=== PATIENT | male | born 1940 | race Caucasian/White ===

== ENCOUNTER → 2016-09-17 | Outpatient (CLI) | payer OTHER ==
[~2016-09-17] MED LIST: DILT-115 PO; EZET10TA38 PO; GLC500 PO; HYDR-713 PO; NAPR-1169 PO; [UNRECOGNIZED DRUG - CODE] PO
[2016-09-17 15:16] LABS: ALT/SGPT 18 U/L (12-78); AST/SGOT 11 U/L (15-37); BLOOD UREA NITROGEN 15 mg/dl (7-18); BUN/CREATININE RATIO 13.8 (10-20); CALCIUM 9.2 mg/dl (8.5-10.1); CARBON DIOXIDE 30 mmol/L (21-32); CHLORIDE 103 mmol/L (98-107); GLUCOSE 179 mg/dl (70-99); SODIUM 139 mmol/L (136-145)
[2016-09-17 15:19] LABS: CHOLESTEROL 164 mg/dl (0-200); CHOLESTEROL/HDL RATIO 2.5; HDL CHOLESTEROL 65 mg/dl; LDL CHOLESTEROL CALCULATED 70 mg/dl; TRIGLYCERIDES 146 mg/dl (0-150); VERY LOW DENSITY LIPOPROT CALC 29 mg/dl
[2016-09-17 16:19] LABS: RATIO 3.1 mcg/mg (0-30.0)
[2016-09-17 16:26] LABS: ESTIMATED AVERAGE GLUCOSE 160 mg/dl; HA1C FLAG Normal (Normal)
== END | disposition home or self-care (01) ==
LOC: C.LAB1850 13:59
PROVIDERS: ATTEND Internal Medicine
DX: E11.9 Type 2 diabetes mellitus without complications (principal); M47.9 Spondylosis, unspecified

== ENCOUNTER → 2017-06-30 | Outpatient (CLI) | payer OTHER ==
[2017-06-30 17:02] LABS: ALT/SGPT 21 U/L (12-78); AST/SGOT 10 U/L (15-37); BLOOD UREA NITROGEN 17 mg/dl (7-18); CALCIUM 9.1 mg/dl (8.5-10.1); CARBON DIOXIDE 28 mmol/L (21-32); CREATININE 1.23 mg/dl (0.60-1.40); GLUCOSE 204 mg/dl (70-99); POTASSIUM 4.2 mmol/L (3.5-5.1); SODIUM 135 mmol/L (136-145)
[2017-06-30 17:05] LABS: CHOLESTEROL 161 mg/dl (0-200); LDL CHOLESTEROL CALCULATED 70 mg/dl
[2017-07-01 06:12] LABS: HEMOGLOBIN A1C 7.8 % (4.5-5.6)
== END | disposition home or self-care (01) ==
LOC: C.LAB1850 15:01
PROVIDERS: ATTEND Internal Medicine
DX: E78.5 Hyperlipidemia, unspecified (principal); I10 Essential (primary) hypertension; E11.9 Type 2 diabetes mellitus without complications

== ENCOUNTER 2018-06-18 18:14 | Inpatient (IN) ==
[2018-06-18 19:05] LABS: Basophils # (auto) 0.02 K/uL (0-0.2); Basophils % (auto) 0.2 %; Eosinophils # (auto) 0.19 K/uL (0-0.5); Eosinophils % (auto) 1.7 %; Hematocrit (blood only) 42.1 % (42-52); Hemoglobin 14.3 g/dL (14.0-18.0); Immature Granulocytes # (auto) 0.03 K/uL (0.00-0.02); Immature Granulocytes % (auto) 0.3 %; Lymphocytes # (auto) 2.96 K/uL (1.2-3.4); Lymphocytes % (auto) 26.5 %; Mean Corpuscular Volume 99.5 fL (80-100); Mean Platelet Volume 11.4 fL (7.4-10.4); Monocytes # (auto) 1.03 K/uL (0.11-0.59); Monocytes % (auto) 9.2 %; Neutrophils # (auto) 6.96 K/uL (1.4-6.5); Neutrophils % (auto) 62.1 %; Platelet Count 297 K/uL (130-400); RDW Coefficient of Variation 14.7 % (11.5-14.5); Red Blood Count 4.23 M/uL (4.7-6.1); White Blood Count 11.19 K/uL (4.8-10.8)
[2018-06-18 19:17] LABS: Albumin Level 3.8 gm/dl (3.4-5.0); BUN Creatinine Ratio 17.9 (10-20); Calcium 9.5 mg/dl (8.5-10.1); Creatinine Clr Calc Pharmacy 58.4 ml/min; Est GFR (African American) 59.9; Est GFR (Non-African American) 51.7; Magnesium 1.9 mg/dl (1.8-2.4); Potassium 3.7 mmol/L (3.5-5.1)
[2018-06-18 19:20] LABS: iSTAT Creatinine 1.1 mg/dl (0.6-1.3); iSTAT Hemoglobin 15.3 g/dl (14.0-18.0); iSTAT Ionized Calcium 1.13 mmol/l (1.12-1.32); iSTAT Potassium 3.7 mEq/L (3.3-5.0)
[2018-06-18 19:22] LABS: Albumin Globulin Ratio 0.9 (0.9-2); Bilirubin,Total 0.5 mg/dl (0.2-1); Globulin 4.1 gm/dl (2.5-4.0); Total Protein 7.9 gm/dl (6.4-8.2); Troponin I 0.025 ng/ml (0-0.045)
--- NOTE | 2018-06-18 19:28 | XRay Report ---
SINGLE VIEW CHEST CLINICAL HISTORY: Atypical chest pain. FINDINGS: An AP, portable, upright chest radiograph is compared to study dated 10/31/2008. The examina tion is degraded by portable technique and patient rotation. The heart is enlarged and there is athe rosclerotic calcification of the thoracic aorta. There is pulmonary vascular congestion and interstit ial edema. There are small pleural effusions with bibasilar consolidation. No pneumothorax is seen. T he skeletal structures are osteopenic. The bony thorax is grossly intact. Degenerative change is note d throughout the thoracic spine and in the shoulders. IMPRESSION: 1. Cardiomegaly with evidence of congestive failure and interstitial edema. 2. Small pleural effusions with bibasilar consolidation. Electronically signed by: Keith Allen M.D. 06/18/2018 7:25 PM
[2018-06-18 19:44] LABS: Base Excess VBG 1.5 mEq/L; HCO3 VBG 27 mmol/L; PCO2 VBG 47 mmHg (38-50); PO2 VBG 32 mmHg; pH VBG 7.38 (7.36-7.41)
[2018-06-18] MEDS ORDERED: IOVERSOL 100ml IV PRN (19:48)
--- NOTE | 2018-06-18 19:53 | CT Scan Report ---
CT ANGIOGRAM OF THE CHEST CLINICAL HISTORY: Atypical chest pain. COMPARISON STUDY: Chest x-ray dated 06/18/2018. TECHNIQUE: Following the IV administration of 92 cc of Optiray 320, CT angiogram of the chest was per formed from the upper abdomen to the thoracic inlet utilizing the pulmonary embolus protocol. Images are reviewed in the axial, sagittal, and coronal planes. 3-D MIPS images are created and assessed. IV contrast was administered without complication. A dose lowering technique was utilized adhering to the principles of ALARA. The Examination is modestly degraded by motion artifact. CT DOSE: 765.72 mGy.cm FINDINGS: Thyroid: Imaged portions of the thyroid gland are normal in size and attenuation. Thoracic aorta: There is atherosclerotic calcification of the thoracic aorta, which is normal in rosi kandice and demonstrates 4-vessel variant arch anatomy. No dissection is seen. Pulmonary vasculature: The pulmonary trunk is normal in caliber. There are no filling defects identif ied in main, lobar, or proximal segmental pulmonary branches to suggest pulmonary embolus. Evaluation of the peripheral branches is degraded by motion artifact. Heart: The heart is enlarged and without pericardial effusion. The coronary arteries are densely calc ified. Lungs and pleural spaces: Evaluation of lung parenchyma is degraded by motion artifact. Diffuse intra lobular septal thickening is consistent with congestive failure. Layering secretions are noted in the trachea. There are moderate bilateral pleural effusions with associated atelectasis. Mediastinum: There are scattered subcentimeter mediastinal lymph nodes. These are not pathologically enlarged by size criteria. Danyelle: Clear. Axillae: There is no axillary lymphadenopathy. Upper abdomen: Partially visualized upper abdominal viscera is within normal limits. Skeletal structures: The skeletal structures are osteopenic. Mild degenerative change is noted in the thoracic spine and shoulders. No lytic or blastic bony lesions are seen. IMPRESSION: 1. There is no evidence of pulmonary embolus in the main, lobar, or proximal segmental pulmonary felipa neil. 2. Cardiomegaly with evidence of congestive failure. 3. Moderate pleural effusions with associated atelectasis. Electronically signed by: Keith Allen M.D. 06/18/2018 7:52 PM
[2018-06-18 19:57] LABS: Oxygen Saturation VBG < 60.0 %
[2018-06-18] MEDS ORDERED: FUROSEMIDE 40 MG/4 ML VIAL IV STA (19:59)
--- NOTE | 2018-06-18 21:10 | History & Physical Report ---
Date of Service June 18, 2018 Assessment & Plan (1) Respiratory failure with hypoxia: Patient with 3 days of progressive dyspnea and orthopnea. Slight edema and weight gain. Chest imaging with suggestion of pulmonary edema. Concern for CHF. Per review of records patient with mild CHF and possibly CAD - stress echo in 2007 mentions resting echo with evidence of prior inferoposterior VT and mild LV dysfunction with EF of 45%. segmental abnormalities reflective of probable underlying ischemic heart disease with hypokinetic posterior wall and inferior wall. -Admit to medical floor with telemetry -Lasix 40mg IV BID -Strict I/O's, daily weights -BMP BID to assess renal function and electrolytes during diuresis -Check Echo -Check EKG -Will check procalcitonin given productive cough and mildly elevated WBC count -Troponin detectable at 0.025, possibly secondary to strain in setting of CHF. Repeat troponin to assess trend -Pending results of above may consider Cardiology assessment and stress testing Present on Admission?: Yes (2) Syncope: Patient with syncopal event upon arrival to ER. Head trauma. Neurologically intact. -Admission with telemetry monitoring -Echo as above (3) Diabetes: PhP6T=3.6 on 05/08/18. Patient reports being compliant with glipizide. Blood sugar elevated today at 257 -Hold Glipizide -Lantus 10u BID -ISS, CF=35, CR=12 -CC/low Na diet as tolerated -Continue Nortriptyline for neuropathy Present on Admission?: Yes (4) Chronic GERD: Chronic. Stable -Continue Omeprazole daily Present on Admission?: Yes (5) HLD (hyperlipidemia): Chronic -Continue Crestor 20 Present on Admission?: Yes (6) HTN (hypertension): Blood pressure well controlled at present -Continue Diltiazem 240mg po BID -Continue Irbesartan/HCZ tdaily -Diuresis as above -Continue to monitor F/E/N - Diuresis with Lasix 40mg IV BID, BMP BID to monitor renal function and electrolytes, CC/low Na diet as tolerated Ppx - Lovenox for DVT ppx, continue Omeprazole Code - DNR per discussion with patient Dispo -Admit to medical floor with telemetry Present on Admission?: Yes History of Present Illness Chief Complaint: syncope Primary Care Provider: Pavel Portillo MD Mr. Stephen is a 77yo male with history of HTN, HLP, DM and GERD. Patient had a brief episode of substernal chest discomfort 3 days ago associated with shortness of breath and a "gurgling" sound in his chest. Chest pain non- radiating, non-exertional and non-pleuritic. Resolved shortly after it began. SOB however has persisted and become progressively worse over the last three days. Patient unable to lay flat secondary to orthopnea. He denies edema but thinks he may have gained some weight - patient seen by Dr. Portillo on 06/08/18 - weight at that time 453#, today he is 258.9#. Patient hypoxic and tachypnic on arrival - HR of 105, RR of 30, saturating 89% on room air. He was placed on Oxymask 6L with improvement to 93%. He has cough productive for yellow sputum, states that this is his baseline since he quit smoking 13 years ago. Denies fevers/chills/nausea/vomiting. Denies CP/palpitations. Denies abdominal pain/nausea/vomiting/diarrhea Patient had a syncopal event as he was entering the hospital this evening. He states that he just blacked out. No prodrome. Denies CP/palpitations/numbness/weakness or incontinence before or after the event. ER Course: Lasix 40mg IV Allergies Allergy/AdvReac Type Severity Reaction Status Date / Time aspirin Allergy Mild RASH Verified 06/18/18 18:37 Home Medications Home Medications Medication Instructions Recorded Confirmed Type diltiazem HCl 240 mg PO BID 06/18/18 06/18/18 History glipizide 5 mg PO BID 06/18/18 06/18/18 History irbesartan-hydrochlorothiazide 1 tab PO DAILY 06/18/18 06/18/18 History naproxen 500 mg PO DAILY 06/18/18 06/18/18 History nortriptyline 75 mg PO DAILY 06/18/18 06/18/18 History omeprazole 20 mg PO DAILY 06/18/18 06/18/18 History rosuvastatin 20 mg PO DAILY 06/18/18 06/18/18 History Past Med/Surg History Medical History HLD (hyperlipidemia) HTN (hypertension) Chronic GERD Diabetes Surgical History S/P appendectomy Social History Feels Safe at Home: Yes Smoking Status: Former smoker Hx Alcohol Use: No Hx Substance Use: No Review of Systems All systems reviewed & are unremarkable except as noted in HPI & below Physical Exam Vital Signs (Past 24 Hours): Last Vital Signs Temp 36.5 C 06/18/18 18:16 Pulse 103 H 06/18/18 19:01 Resp 27 H 06/18/18 18:40 BP 127/102 H 06/18/18 19:01 Pulse Ox 93 06/18/18 19:06 Physical Exam: General: patient resting comfortably, NAD, non-toxic in appearance, AA&O x 4 Skin: warm, dry, no rashes, small abrasion on posterior scalp, nonbleeding HEENT: NC/AT, PERRL, EOMI, anicteric sclera, conjunctiva without injection, external ear normal to inspection and nontender, vertical ear creases, nares patent, moist mucus membranes, dentition intact, no oropharyngeal lesions, neck supple, trachea midline, no LAD, no thyromegaly, no JVD Heart: +S1/S2, regular, tachycardic, distant heart sounds, no m/r/g Lungs: equal air entry bilaterally, +Crackles to mid lung lou bilaterally, diminished breath sounds in the bases Abd: +BS, soft, NT/ND, no masses/organomegaly/ascites Ext: warm, 2+ pulses in UE/LE bilaterally, no clubbing/cyanosis, 1+ pitting edema to knees equal bilaterally Neuro: nonfocal, patient AA&O x 4, speech intact, no facial droop, moving all extremities on command with equal strength 5/5 Results & Data Laboratory Results Lab Results 06/18/18 06/18/18 06/18/18 Range/Units 18:36 18:36 18:36 WBC 11.19 H (4.8-10.8) K/uL RBC 4.23 L (4.7-6.1) M/uL Hgb 14.3 (14.0-18.0) g/dL POC Hgb (14.0-18.0) g/dl Hct 42.1 (42-52) % POC Hct (42-52) % MCV 99.5 (80-100) fL MCH 33.8 (25-34) pg MCHC 34.0 (32-36) g/dL RDW Std Deviation 53.0 H (36.4-46.3) fL RDW Coeff of [place] 14.7 H (11.5-14.5) % Plt Count 297 (130-400) K/uL MPV 11.4 H (7.4-10.4) fL Immature Gran % (Auto) 0.3 % Neut % (Auto) 62.1 % Lymph % (Auto) 26.5 % [place] % (Auto) 9.2 % Eos % (Auto) 1.7 % Baso % (Auto) 0.2 % Immature Gran # (Auto) 0.03 H (0.00-0.02) K/uL Neut # (Auto) 6.96 H (1.4-6.5) K/uL Lymph # (Auto) 2.96 (1.2-3.4) K/uL [place] # (Auto) 1.03 H (0.11-0.59) K/uL Eos # (Auto) 0.19 (0-0.5) K/uL Baso # (Auto) 0.02 (0-0.2) K/uL VBG pH (7.36-7.41) VBG pCO2 (38-50) mmHg VBG pO2 mmHg VBG HCO3 mmol/L VBG O2 Saturation % VBG Base Excess mEq/L Barometric Pressure mm/Hg POC Sodium (135-144) mEq/L Sodium 133 L (136-145) mmol/L POC Potassium (3.3-5.0) mEq/L Potassium 3.7 (3.5-5.1) mmol/L POC Chloride (101-112) mEq/L Chloride 98 (98-107) mmol/L Carbon Dioxide 25 (21-32) mmol/L POC Total CO2 (24-31) mEq/l Anion Gap 10.0 (3-11) POC Anion Gap (16-25) mmol/L POC BUN (7-18) mg/dl BUN 24 H (7-18) mg/dl Creatinine 1.32 (0.6-1.4) mg/dl POC Creatinine (0.6-1.3) mg/dl Est Cr Clr Drug Dosing 58.4 ml/min Est GFR ( Amer) 59.9 Est GFR (Non-Af Amer) 51.7 BUN/Creatinine Ratio 17.9 (10-20) Glucose 257 H (70-99) mg/dl POC Glucose (other) (70-99) mg/dl Calcium 9.5 (8.5-10.1) mg/dl POC Ioniz Calcium Fitz (1.12-1.32) mmol/l Magnesium 1.9 Cancelled (1.8-2.4) mg/dl Total Bilirubin 0.5 (0.2-1) mg/dl AST 14 L (15-37) U/L ALT 20 (12-78) U/L Alkaline Phosphatase 92 (45-117) U/L POC Troponin I (0-0.045) ng/ml Troponin I 0.025 (0-0.045) ng/ml NT-Pro-B Natriuret Pep (0-1800) pg/ml Total Protein 7.9 (6.4-8.2) gm/dl Albumin 3.8 (3.4-5.0) gm/dl Globulin 4.1 H (2.5-4.0) gm/dl Albumin/Globulin Ratio 0.9 (0.9-2) Lipase 67 L (73-393) U/L 06/18/18 06/18/18 06/18/18 Range/Units 18:36 18:42 19:06 WBC (4.8-10.8) K/uL RBC (4.7-6.1) M/uL Hgb (14.0-18.0) g/dL POC Hgb 15.3 (14.0-18.0) g/dl Hct (42-52) % POC Hct 45 (42-52) % MCV (80-100) fL MCH (25-34) pg MCHC (32-36) g/dL RDW Std Deviation (36.4-46.3) fL RDW Coeff of [place] (11.5-14.5) % Plt Count (130-400) K/uL MPV (7.4-10.4) fL Immature Gran % (Auto) % Neut % (Auto) % Lymph % (Auto) % [place] % (Auto) % Eos % (Auto) % Baso % (Auto) % Immature Gran # (Auto) (0.00-0.02) K/uL Neut # (Auto) (1.4-6.5) K/uL Lymph # (Auto) (1.2-3.4) K/uL [place] # (Auto) (0.11-0.59) K/uL Eos # (Auto) (0-0.5) K/uL Baso # (Auto) (0-0.2) K/uL VBG pH (7.36-7.41) VBG pCO2 (38-50) mmHg VBG pO2 mmHg VBG HCO3 mmol/L VBG O2 Saturation % VBG Base Excess mEq/L Barometric Pressure mm/Hg POC Sodium 134 L (135-144) mEq/L Sodium (136-145) mmol/L POC Potassium 3.7 (3.3-5.0) mEq/L Potassium (3.5-5.1) mmol/L POC Chloride 97 L (101-112) mEq/L Chloride (98-107) mmol/L Carbon Dioxide (21-32) mmol/L POC Total CO2 25 (24-31) mEq/l Anion Gap (3-11) POC Anion Gap 16.0 (16-25) mmol/L POC BUN 24 H (7-18) mg/dl BUN (7-18) mg/dl Creatinine (0.6-1.4) mg/dl POC Creatinine 1.1 (0.6-1.3) mg/dl Est Cr Clr Drug Dosing ml/min Est GFR ( Amer) Est GFR (Non-Af Amer) BUN/Creatinine Ratio (10-20) Glucose (70-99) mg/dl POC Glucose (other) 263 H (70-99) mg/dl Calcium (8.5-10.1) mg/dl POC Ioniz Calcium Fitz 1.13 (1.12-1.32) mmol/l Magnesium (1.8-2.4) mg/dl Total Bilirubin (0.2-1) mg/dl AST (15-37) U/L ALT (12-78) U/L Alkaline Phosphatase (45-117) U/L POC Troponin I < 0.03 (0-0.045) ng/ml Troponin I (0-0.045) ng/ml NT-Pro-B Natriuret Pep 1224 (0-1800) pg/ml Total Protein (6.4-8.2) gm/dl Albumin (3.4-5.0) gm/dl Globulin (2.5-4.0) gm/dl Albumin/Globulin Ratio (0.9-2) Lipase (73-393) U/L 06/18/18 Range/Units 19:16 WBC (4.8-10.8) K/uL RBC (4.7-6.1) M/uL Hgb (14.0-18.0) g/dL POC Hgb (14.0-18.0) g/dl Hct (42-52) % POC Hct (42-52) % MCV (80-100) fL MCH (25-34) pg MCHC (32-36) g/dL RDW Std Deviation (36.4-46.3) fL RDW Coeff of [place] (11.5-14.5) % Plt Count (130-400) K/uL MPV (7.4-10.4) fL Immature Gran % (Auto) % Neut % (Auto) % Lymph % (Auto) % [place] % (Auto) % Eos % (Auto) % Baso % (Auto) % Immature Gran # (Auto) (0.00-0.02) K/uL Neut # (Auto) (1.4-6.5) K/uL Lymph # (Auto) (1.2-3.4) K/uL [place] # (Auto) (0.11-0.59) K/uL Eos # (Auto) (0-0.5) K/uL Baso # (Auto) (0-0.2) K/uL VBG pH 7.38 (7.36-7.41) VBG pCO2 47 (38-50) mmHg VBG pO2 32 mmHg VBG HCO3 27 mmol/L VBG O2 Saturation < 60.0 % VBG Base Excess 1.5 mEq/L Barometric Pressure 734.1 mm/Hg POC Sodium (135-144) mEq/L Sodium (136-145) mmol/L POC Potassium (3.3-5.0) mEq/L Potassium (3.5-5.1) mmol/L POC Chloride (101-112) mEq/L Chloride (98-107) mmol/L Carbon Dioxide (21-32) mmol/L POC Total CO2 (24-31) mEq/l Anion Gap (3-11) POC Anion Gap (16-25) mmol/L POC BUN (7-18) mg/dl BUN (7-18) mg/dl Creatinine (0.6-1.4) mg/dl POC Creatinine (0.6-1.3) mg/dl Est Cr Clr Drug Dosing ml/min Est GFR ( Amer) Est GFR (Non-Af Amer) BUN/Creatinine Ratio (10-20) Glucose (70-99) mg/dl POC Glucose (other) (70-99) mg/dl Calcium (8.5-10.1) mg/dl POC Ioniz Calcium Fitz (1.12-1.32) mmol/l Magnesium (1.8-2.4) mg/dl Total Bilirubin (0.2-1) mg/dl AST (15-37) U/L ALT (12-78) U/L Alkaline Phosphatase (45-117) U/L POC Troponin I (0-0.045) ng/ml Troponin I (0-0.045) ng/ml NT-Pro-B Natriuret Pep (0-1800) pg/ml Total Protein (6.4-8.2) gm/dl Albumin (3.4-5.0) gm/dl Globulin (2.5-4.0) gm/dl Albumin/Globulin Ratio (0.9-2) Lipase (73-393) U/L Diagnostic Findings SINGLE VIEW CHEST CLINICAL HISTORY: Atypical chest pain. FINDINGS: An AP, portable, upright chest radiograph is compared to study dated 10/31/2008. The examination is degraded by portable technique and patient rotation. The heart is enlarged and there is atherosclerotic calcification of the thoracic aorta. There is pulmonary vascular congestion and interstitial edema. There are small pleural effusions with bibasilar consolidation. No pneumothorax is seen. The skeletal structures are osteopenic. The bony thorax is grossly intact. Degenerative change is noted throughout the thoracic spine and in the shoulders. IMPRESSION: 1. Cardiomegaly with evidence of congestive failure and interstitial edema. 2. Small pleural effusions with bibasilar consolidation. Electronically signed by: Keith Allen M.D. 06/18/2018 7:25 PM Dictated: 06/18/[id number] Transcribed: 06/18/181924 CT ANGIOGRAM OF THE CHEST CLINICAL HISTORY: Atypical chest pain. COMPARISON STUDY: Chest x-ray dated 06/18/2018. TECHNIQUE: Following the IV administration of 92 cc of Optiray 320, CT angiogram of the chest was performed from the upper abdomen to the thoracic inlet utilizing the pulmonary embolus protocol. Images are reviewed in the axial, sagittal, and coronal planes. 3-D MIPS images are created and assessed. IV contrast was administered without complication. A dose lowering technique was utilized adhering to the principles of ALARA. The Examination is modestly degraded by motion artifact. CT DOSE: 765.72 mGy.cm FINDINGS: Thyroid: Imaged portions of the thyroid gland are normal in size and attenuation. Thoracic aorta: There is atherosclerotic calcification of the thoracic aorta, which is normal in caliber and demonstrates 4-vessel variant arch anatomy. No dissection is seen. Pulmonary vasculature: The pulmonary trunk is normal in caliber. There are no filling defects identified in main, lobar, or proximal segmental pulmonary branches to suggest pulmonary embolus. Evaluation of the peripheral branches is degraded by motion artifact. Heart: The heart is enlarged and without pericardial effusion. The coronary arteries are densely calcified. Lungs and pleural spaces: Evaluation of lung parenchyma is degraded by motion artifact. Diffuse intralobular septal thickening is consistent with congestive failure. Layering secretions are noted in the trachea. There are moderate bilateral pleural effusions with associated atelectasis. Mediastinum: There are scattered subcentimeter mediastinal lymph nodes. These are not pathologically enlarged by size criteria. Danyelle: Clear. Axillae: There is no axillary lymphadenopathy. Upper abdomen: Partially visualized upper abdominal viscera is within normal limits. Skeletal structures: The skeletal structures are osteopenic. Mild degenerative change is noted in the thoracic spine and shoulders. No lytic or blastic bony lesions are seen. IMPRESSION: 1. There is no evidence of pulmonary embolus in the main, lobar, or proximal segmental pulmonary arteries. 2. Cardiomegaly with evidence of congestive failure. 3. Moderate pleural effusions with associated atelectasis. Electronically signed by: Keith Allen M.D. 06/18/2018 7:52 PM Dictated: 06/18/181945 Transcribed: 06/18/181945 DOBUTAMINE STRESS ECHO 12/16/2007 FINAL IMPRESSIONS: 1.Adequate Dobutamine stress achieving 86% of age predicted maximum heart rate. 2.Appropriate blood pressure response. 3.No diagnostic ST segment changes though the patient was in trigeminy through out the procedure. 4.Resting echocardiography reflective of ischemic heart disease with prior inferoposterior myocardial infarction and mild left ventricular dysfunction with EF of 45%. 5.Stress echocardiography demonstrates improvement in all segments other than prior infarcted segment with slight worsening in the apical portion of the inferior wall and subtle periinfarct ischemia not excluded. LV function did improve with stress. Code Status & VTE Plan Code Status DNR VTE Prophylaxis Plan VTE Prophylaxis will be ordered: Yes Critical Care Time Critical Care Time: No (1) Diabetes Diabetes mellitus type: type 2 Diabetes mellitus computer terminal operator insulin use: without computer terminal operator use Diabetes mellitus complication status: with neurologic complications Diabetes mellitus complication detail: with polyneuropathy Qualified Code(s): E11.42 - Type 2 diabetes mellitus with diabetic polyneuropathy (2) HLD (hyperlipidemia) Hyperlipidemia type: unspecified Qualified Code(s): E78.5 - Hyperlipidemia, unspecified (3) HTN (hypertension) Hypertension type: essential hypertension Qualified Code(s): I10 - Essential (primary) hypertension (4) Syncope Syncope type: unspecified Qualified Code(s): R55 - Syncope and collapse (5) Respiratory failure with hypoxia Chronicity: acute Qualified Code(s): J96.01 - Acute respiratory failure with hypoxia
--- NOTE | 2018-06-18 22:16 | CT Scan Report ---
CT SCAN OF THE BRAIN WITHOUT IV CONTRAST CLINICAL HISTORY: Syncope. COMPARISON STUDY: CT of the brain dated 10/31/2008. TECHNIQUE: Unenhanced axial CT scan of the brain is performed from the vertex to the skull base. A do se lowering technique was utilized adhering to the principles of ALARA. CT DOSE: 537.48 mGy.cm FINDINGS: Brain parenchyma: There are age-related involutional changes noting mild subcortical and periventric ular microangiopathic change. There is no hemorrhage, mass effect, or evidence of acute territorial i schemia by CT criteria. Sullivan-white matter differentiation is preserved. No extra-axial fluid collecti on is seen. Ventricles, sulci, cisterns: Prominent secondary to involutional change. Intracranial vasculature: There is atherosclerotic calcification of the cavernous carotid and vertebr al arteries. Calvarium: Unremarkable. Sinuses and mastoids: The visualized paranasal sinuses are clear. The there is a small left mastoid e ffusion. The right mastoid air cells are well pneumatized. Orbits: The bony orbits are grossly intact. There are bilateral ocular lens implants. IMPRESSION: There is no hemorrhage, mass effect, or evidence of acute territorial ischemia by CT isabel ochoa. Electronically signed by: Keith Allen M.D. 06/18/2018 10:15 PM
[2018-06-18] MEDS ORDERED: GLUCOSE 10 TABS/TUBE PO PRN (23:26)
[2018-06-18] MEDS ORDERED: GLUCAGON FOR INJ 1 MG VIAL SQ PRN (23:26)
[2018-06-18] MEDS ORDERED: CARBOHYDRATES FOR HYPOGLYCEMIA PO PRN (23:26)
[2018-06-18] MEDS ORDERED: DEXTROSE 50% 50 ML SYRINGE IV PRN (23:26)
[2018-06-18] MEDS ORDERED: GLUCOSE 40% GEL 15 GM TUBE PO PRN (23:26)
[2018-06-18] MEDS ORDERED: FUROSEMIDE 40 MG in SYRINGE 0 ML IV ONE (23:45)
[2018-06-19] MEDS: INSULIN ASPART 100 UNITS/ML 3 ML PEN SC SCH ×5 (00:19→21:09)
[2018-06-19] MEDS: INSULIN GLARGINE SOLOSTAR 100 UNITS/ML 3 ML PEN SC SCH ×3 (00:20→21:06)
[2018-06-19] MEDS: dilTIAZem HCL 240 MG CAPCR PO SCH ×2 (00:21→09:02)
[2018-06-19 00:35] LABS: Appearance Urine Clear (Clear); Bilirubin Urine Negative (Negative); Blood Urine Negative (Negative); Color Urine Yellow; Glucose Urine UA Negative (Negative); Ketones Urine Negative (Negative); Leukocyte Esterase Urine Negative (Negative); Nitrite Urine Negative (Negative); Protein Urine Negative (Negative); Specific Gravity Urine 1.025 (1.000-1.030); Urobilinogen Urine Negative (Negative)
--- NOTE | 2018-06-19 01:05 | Emergency Department Note ---
Entered by Valentina Rivera acting as a scribe for Los Steiner MD History of Present Illness General Chief complaint: Chest Pain Stated complaint: CHEST PAIN, SOB Time Seen by Provider: 06/18/18 18:58 Source: patient Mode of arrival: ambulatory Limitations: no limitations History of Present Illness Provider complaint: shortness of breath Onset (ago): day(s) (8) Location: chest Pain Consistency: + other (worsening) Maximum Pain Intensity: 8 Quality: + other (SOB) Exacerbated By: + other (walking) Associated symptoms: + denies other symptoms (abd pain), + chest pain, + syncope and + other (back pain); no cough and no nausea/vomiting The patient is 77 year old white male with a past medical history of HTN and HLD who presents to the ER with complaints of a worsening shortness of breath that began on Friday. The patient reports that he has also been experiencing chest pain which he notes radiates to his back. He states that his shortness of breath is exacerbated when walking. He also notes that his symptoms do feel similar to when he had bronchitis. He denies a history of blood clots and denies being on any blood thinners. He reports that he had an episode of syncope in the ER waiting room but denies injuring his head. He states that he has been taking his medications as prescribed. He admits to being a former smoker but denies any lung or cardiac history. He denies any coughs, nausea, vomiting or abdominal pain. Home Medications Home Medications Medication Instructions Recorded Confirmed Type diltiazem HCl 240 mg PO BID 06/18/18 06/18/18 History glipizide 5 mg PO BID 06/18/18 06/18/18 History irbesartan-hydrochlorothiazide 1 tab PO DAILY 06/18/18 06/18/18 History naproxen 500 mg PO DAILY 06/18/18 06/18/18 History nortriptyline 75 mg PO DAILY 06/18/18 06/18/18 History omeprazole 20 mg PO DAILY 06/18/18 06/18/18 History rosuvastatin 20 mg PO DAILY 06/18/18 06/18/18 History Allergies Allergy/AdvReac Type Severity Reaction Status Date / Time aspirin Allergy Mild RASH Verified 06/18/18 18:37 Past Med/Surg History Medical History HLD (hyperlipidemia) HTN (hypertension) Chronic GERD Diabetes Surgical History S/P appendectomy Social History Preferred Language: Chinese Communication Ability: Effective Telephone Clerk Required: No Beliefs That Will Affect Care: None Current Living Situation: Alone Other Information That Helps Us Care for You: No Feels Safe at Home: Yes Safety Concerns: Feels Safe At This Time Smoking Status: Former smoker Hx Alcohol Use: No Hx Substance Use: No Review of Systems See HPI for pertinent positives & negatives. and A total of 10 systems reviewed and were otherwise negative Physical Exam Vital Signs Vital Signs - 24 hr 06/18/18 18:16 06/18/18 18:23 06/18/18 18:25 Temperature 36.5 C Temperature Source Oral Sepsis Recent Fever Within 48 Hours No Sepsis New/Unexplained Change in Mental Status No Sepsis Action Taken by Nursing No Action Required Pulse Rate 105 H 102 H 106 H Pulse Rate [Right Finger] Pulse Rate from SpO2 Sensor 110 H Pulse Rhythm [Right Finger] Pulse Strength [Right Finger] Respiratory Rate 30 H 26 H 18 Respiratory Effort / Characteristics Respiratory Depth Respiratory Pattern Blood Pressure 133/65 Blood Pressure [Right Arm] Blood Pressure Mean 87 Blood Pressure Mean [Right Arm] Blood Pressure Position [Right Arm] Pulse Oximetry 89 L 86 L Oxygen Delivery Method Room Air Oxygen Flow Rate 06/18/18 18:30 06/18/18 18:31 06/18/18 18:40 Temperature Temperature Source Sepsis Recent Fever Within 48 Hours Sepsis New/Unexplained Change in Mental Status Sepsis Action Taken by Nursing Pulse Rate 101 H 101 H 102 H Pulse Rate [Right Finger] Pulse Rate from SpO2 Sensor 101 H 102 H 110 H Pulse Rhythm [Right Finger] Pulse Strength [Right Finger] Respiratory Rate 25 H 24 27 H Respiratory Effort / Characteristics Respiratory Depth Respiratory Pattern Blood Pressure 127/65 Blood Pressure [Right Arm] Blood Pressure Mean 85 Blood Pressure Mean [Right Arm] Blood Pressure Position [Right Arm] Pulse Oximetry 86 L 85 L 86 L Oxygen Delivery Method Oxygen Flow Rate 06/18/18 18:45 06/18/18 18:50 06/18/18 19:00 Temperature Temperature Source Sepsis Recent Fever Within 48 Hours Sepsis New/Unexplained Change in Mental Status Sepsis Action Taken by Nursing Pulse Rate 106 H 102 H Pulse Rate [Right Finger] Pulse Rate from SpO2 Sensor 106 H 103 H Pulse Rhythm [Right Finger] Pulse Strength [Right Finger] Respiratory Rate Respiratory Effort / Characteristics Respiratory Depth Respiratory Pattern Blood Pressure Blood Pressure [Right Arm] Blood Pressure Mean Blood Pressure Mean [Right Arm] Blood Pressure Position [Right Arm] Pulse Oximetry 86 L 96 93 Oxygen Delivery Method Room Air Oxygen Flow Rate 06/18/18 19:01 06/18/18 19:06 06/18/18 22:35 Temperature Temperature Source Sepsis Recent Fever Within 48 Hours Sepsis New/Unexplained Change in Mental Status Sepsis Action Taken by Nursing Pulse Rate 103 H Pulse Rate [Right Finger] 101 H Pulse Rate from SpO2 Sensor 102 H Pulse Rhythm [Right Finger] Regular Pulse Strength [Right Finger] Normal Respiratory Rate 22 Respiratory Effort / Characteristics Respiratory Depth Normal Respiratory Pattern Blood Pressure 127/102 H Blood Pressure [Right Arm] 111/61 Blood Pressure Mean 110 Blood Pressure Mean [Right Arm] 77 Blood Pressure Position [Right Arm] Sitting Pulse Oximetry 90 93 96 Oxygen Delivery Method Oxymask Oxymask Oxygen Flow Rate 6 6 06/18/18 23:26 Temperature 36.8 C Temperature Source Oral Sepsis Recent Fever Within 48 Hours Sepsis New/Unexplained Change in Mental Status Sepsis Action Taken by Nursing Pulse Rate Pulse Rate [Right Finger] 107 H Pulse Rate from SpO2 Sensor Pulse Rhythm [Right Finger] Pulse Strength [Right Finger] Respiratory Rate 22 Respiratory Effort / Characteristics Spontaneous Short of Breath SOB on Exertion Respiratory Depth Normal Respiratory Pattern Tachypnea Blood Pressure Blood Pressure [Right Arm] 142/80 H Blood Pressure Mean Blood Pressure Mean [Right Arm] 100 Blood Pressure Position [Right Arm] Pulse Oximetry Oxygen Delivery Method Oxymask Oxygen Flow Rate 6 GENERAL: Moderate distress, oxygen mask in place. EYE EXAM: Normal conjunctiva. PERRL, no anisocoria and EOM's grossly intact w/o pain. OROPHARYNX: Moist MM. NECK: Supple, no nuchal rigidity, no adenopathy, non-tender. No signs of meningismus. LUNGS: Decreased breath sounds at the bases with associated bibasilar crackles.. Normal chest wall mechanics. HEART: Tachycardic and regular, no MRG. ABDOMEN: Abdomen soft, non-tender, normo-active bowel sounds, no masses, no rebound or guarding. BACK: No CVA TTP. SKIN: No rashes and no bruising. UPPER EXTREMITIES: Upper extremities are grossly normal. LOWER EXTREMITIES: 1-2 + bilateral lower extremity edema. No calf pain. Swelling is symmetric. NEURO EXAM: A and O x3. GCS 15. Moves all 4 extremities on command w/o issue. Course 1901: Past medical records reviewed. The patient was evaluated in room A12B, and a complete history and physical examination were performed. 2007: I reviewed the patient's case with Dr. Castillo - [facility] Hospitalist. She will evaluate the patient for further management. Administered Medications Diltiazem HCl (Cardizem Cd) 240 mg PO BID HERBIE Stop: 07/18/18 23:25 Last Admin: 06/19/18 00:21 Dose: 240 mg Documented by: [id number] Insulin Aspart (Novolog Flexpen) 0 units SC ACHS HERBIE Stop: 07/18/18 23:25 Last Admin: 06/19/18 00:19 Dose: 6 units Documented by: [id number] Cosigned by: [id number] Insulin Glargine (Lantus Solostar Pen) 10 units SC BID HERBIE Stop: 07/18/18 23:25 Last Admin: 06/19/18 00:20 Dose: 10 units Documented by: [id number] Cosigned by: [id number] Discontinued Medications Furosemide (Lasix) 40 mg IV NOW STA Stop: 06/18/18 20:00 Last Admin: 06/18/18 20:07 Dose: 40 mg Documented by: [id number] Furosemide 40 mg/ Syringe 4 mls @ 4 mls/min IV BID ONE Stop: 06/18/18 23:46 Last Admin: 06/19/18 00:21 Dose: 4 mls/min Documented by: [id number] Ioversol (Optiray 320 100ml) 92 ml IV ONCE PRN PRN Reason: Interaction Checking Stop: 06/22/18 19:47 Last Admin: 06/18/18 19:48 Dose: 92 ml Documented by: [id number] Medical Decision Making Medical Records Attestation: I reviewed the patient's medical records. Home Medications Current Medication List: was personally reviewed by me Laboratory Data Attestation: I reviewed the patient's lab results. Result diagrams: 06/18/18 18:36 06/18/18 18:36 Lab Results 06/18/18 06/18/18 06/18/18 Range/Units 18:36 18:36 18:36 WBC 11.19 H (4.8-10.8) K/uL RBC 4.23 L (4.7-6.1) M/uL Hgb 14.3 (14.0-18.0) g/dL POC Hgb (14.0-18.0) g/dl Hct 42.1 (42-52) % POC Hct (42-52) % MCV 99.5 (80-100) fL MCH 33.8 (25-34) pg MCHC 34.0 (32-36) g/dL RDW Std Deviation 53.0 H (36.4-46.3) fL RDW Coeff of [place] 14.7 H (11.5-14.5) % Plt Count 297 (130-400) K/uL MPV 11.4 H (7.4-10.4) fL Immature Gran % (Auto) 0.3 % Neut % (Auto) 62.1 % Lymph % (Auto) 26.5 % [place] % (Auto) 9.2 % Eos % (Auto) 1.7 % Baso % (Auto) 0.2 % Immature Gran # (Auto) 0.03 H (0.00-0.02) K/uL Neut # (Auto) 6.96 H (1.4-6.5) K/uL Lymph # (Auto) 2.96 (1.2-3.4) K/uL [place] # (Auto) 1.03 H (0.11-0.59) K/uL Eos # (Auto) 0.19 (0-0.5) K/uL Baso # (Auto) 0.02 (0-0.2) K/uL VBG pH (7.36-7.41) VBG pCO2 (38-50) mmHg VBG pO2 mmHg VBG HCO3 mmol/L VBG O2 Saturation % VBG Base Excess mEq/L Barometric Pressure mm/Hg POC Sodium (135-144) mEq/L Sodium 133 L (136-145) mmol/L POC Potassium (3.3-5.0) mEq/L Potassium 3.7 (3.5-5.1) mmol/L POC Chloride (101-112) mEq/L Chloride 98 (98-107) mmol/L Carbon Dioxide 25 (21-32) mmol/L POC Total CO2 (24-31) mEq/l Anion Gap 10.0 (3-11) POC Anion Gap (16-25) mmol/L POC BUN (7-18) mg/dl BUN 24 H (7-18) mg/dl Creatinine 1.32 (0.6-1.4) mg/dl POC Creatinine (0.6-1.3) mg/dl Est Cr Clr Drug Dosing 58.4 ml/min Est GFR ( Amer) 59.9 Est GFR (Non-Af Amer) 51.7 BUN/Creatinine Ratio 17.9 (10-20) Glucose 257 H (70-99) mg/dl POC Glucose (70-99) POC Glucose (other) (70-99) mg/dl Calcium 9.5 (8.5-10.1) mg/dl POC Ioniz Calcium Fitz (1.12-1.32) mmol/l Magnesium 1.9 Cancelled (1.8-2.4) mg/dl Total Bilirubin 0.5 (0.2-1) mg/dl AST 14 L (15-37) U/L ALT 20 (12-78) U/L Alkaline Phosphatase 92 (45-117) U/L POC Troponin I (0-0.045) ng/ml Troponin I 0.025 (0-0.045) ng/ml NT-Pro-B Natriuret Pep (0-1800) pg/ml Total Protein 7.9 (6.4-8.2) gm/dl Albumin 3.8 (3.4-5.0) gm/dl Globulin 4.1 H (2.5-4.0) gm/dl Albumin/Globulin Ratio 0.9 (0.9-2) Lipase 67 L (73-393) U/L Procalcitonin (0-0.5) ng/ml Urine Color Urine Appearance (Clear) Urine pH (4.5-7.5) Ur Specific [place] (1.000-1.030) Urine Protein (Negative) Urine Glucose (UA) (Negative) Urine Ketones (Negative) Urine Blood (Negative) Urine Nitrite (Negative) Urine Bilirubin (Negative) Urine Urobilinogen (Negative) Ur Leukocyte Esterase (Negative) 06/18/18 06/18/18 06/18/18 Range/Units 18:36 18:36 18:42 WBC (4.8-10.8) K/uL RBC (4.7-6.1) M/uL Hgb (14.0-18.0) g/dL POC Hgb (14.0-18.0) g/dl Hct (42-52) % POC Hct (42-52) % MCV (80-100) fL MCH (25-34) pg MCHC (32-36) g/dL RDW Std Deviation (36.4-46.3) fL RDW Coeff of [place] (11.5-14.5) % Plt Count (130-400) K/uL MPV (7.4-10.4) fL Immature Gran % (Auto) % Neut % (Auto) % Lymph % (Auto) % [place] % (Auto) % Eos % (Auto) % Baso % (Auto) % Immature Gran # (Auto) (0.00-0.02) K/uL Neut # (Auto) (1.4-6.5) K/uL Lymph # (Auto) (1.2-3.4) K/uL [place] # (Auto) (0.11-0.59) K/uL Eos # (Auto) (0-0.5) K/uL Baso # (Auto) (0-0.2) K/uL VBG pH (7.36-7.41) VBG pCO2 (38-50) mmHg VBG pO2 mmHg VBG HCO3 mmol/L VBG O2 Saturation % VBG Base Excess mEq/L Barometric Pressure mm/Hg POC Sodium (135-144) mEq/L Sodium (136-145) mmol/L POC Potassium (3.3-5.0) mEq/L Potassium (3.5-5.1) mmol/L POC Chloride (101-112) mEq/L Chloride (98-107) mmol/L Carbon Dioxide (21-32) mmol/L POC Total CO2 (24-31) mEq/l Anion Gap (3-11) POC Anion Gap (16-25) mmol/L POC BUN (7-18) mg/dl BUN (7-18) mg/dl Creatinine (0.6-1.4) mg/dl POC Creatinine (0.6-1.3) mg/dl Est Cr Clr Drug Dosing ml/min Est GFR ( Amer) Est GFR (Non-Af Amer) BUN/Creatinine Ratio (10-20) Glucose (70-99) mg/dl POC Glucose (70-99) POC Glucose (other) (70-99) mg/dl Calcium (8.5-10.1) mg/dl POC Ioniz Calcium Fitz (1.12-1.32) mmol/l Magnesium (1.8-2.4) mg/dl Total Bilirubin (0.2-1) mg/dl AST (15-37) U/L ALT (12-78) U/L Alkaline Phosphatase (45-117) U/L POC Troponin I < 0.03 (0-0.045) ng/ml Troponin I (0-0.045) ng/ml NT-Pro-B Natriuret Pep 1224 (0-1800) pg/ml Total Protein (6.4-8.2) gm/dl Albumin (3.4-5.0) gm/dl Globulin (2.5-4.0) gm/dl Albumin/Globulin Ratio (0.9-2) Lipase (73-393) U/L Procalcitonin < 0.05 (0-0.5) ng/ml Urine Color Urine Appearance (Clear) Urine pH (4.5-7.5) Ur Specific [place] (1.000-1.030) Urine Protein (Negative) Urine Glucose (UA) (Negative) Urine Ketones (Negative) Urine Blood (Negative) Urine Nitrite (Negative) Urine Bilirubin (Negative) Urine Urobilinogen (Negative) Ur Leukocyte Esterase (Negative) 06/18/18 06/18/18 06/18/18 Range/Units 19:06 19:16 23:35 WBC (4.8-10.8) K/uL RBC (4.7-6.1) M/uL Hgb (14.0-18.0) g/dL POC Hgb 15.3 (14.0-18.0) g/dl Hct (42-52) % POC Hct 45 (42-52) % MCV (80-100) fL MCH (25-34) pg MCHC (32-36) g/dL RDW Std Deviation (36.4-46.3) fL RDW Coeff of [place] (11.5-14.5) % Plt Count (130-400) K/uL MPV (7.4-10.4) fL Immature Gran % (Auto) % Neut % (Auto) % Lymph % (Auto) % [place] % (Auto) % Eos % (Auto) % Baso % (Auto) % Immature Gran # (Auto) (0.00-0.02) K/uL Neut # (Auto) (1.4-6.5) K/uL Lymph # (Auto) (1.2-3.4) K/uL [place] # (Auto) (0.11-0.59) K/uL Eos # (Auto) (0-0.5) K/uL Baso # (Auto) (0-0.2) K/uL VBG pH 7.38 (7.36-7.41) VBG pCO2 47 (38-50) mmHg VBG pO2 32 mmHg VBG HCO3 27 mmol/L VBG O2 Saturation < 60.0 % VBG Base Excess 1.5 mEq/L Barometric Pressure 734.1 mm/Hg POC Sodium 134 L (135-144) mEq/L Sodium (136-145) mmol/L POC Potassium 3.7 (3.3-5.0) mEq/L Potassium (3.5-5.1) mmol/L POC Chloride 97 L (101-112) mEq/L Chloride (98-107) mmol/L Carbon Dioxide (21-32) mmol/L POC Total CO2 25 (24-31) mEq/l Anion Gap (3-11) POC Anion Gap 16.0 (16-25) mmol/L POC BUN 24 H (7-18) mg/dl BUN (7-18) mg/dl Creatinine (0.6-1.4) mg/dl POC Creatinine 1.1 (0.6-1.3) mg/dl Est Cr Clr Drug Dosing ml/min Est GFR ( Amer) Est GFR (Non-Af Amer) BUN/Creatinine Ratio (10-20) Glucose (70-99) mg/dl POC Glucose 238 H (70-99) POC Glucose (other) 263 H (70-99) mg/dl Calcium (8.5-10.1) mg/dl POC Ioniz Calcium Fitz 1.13 (1.12-1.32) mmol/l Magnesium (1.8-2.4) mg/dl Total Bilirubin (0.2-1) mg/dl AST (15-37) U/L ALT (12-78) U/L Alkaline Phosphatase (45-117) U/L POC Troponin I (0-0.045) ng/ml Troponin I (0-0.045) ng/ml NT-Pro-B Natriuret Pep (0-1800) pg/ml Total Protein (6.4-8.2) gm/dl Albumin (3.4-5.0) gm/dl Globulin (2.5-4.0) gm/dl Albumin/Globulin Ratio (0.9-2) Lipase (73-393) U/L Procalcitonin (0-0.5) ng/ml Urine Color Urine Appearance (Clear) Urine pH (4.5-7.5) Ur Specific [place] (1.000-1.030) Urine Protein (Negative) Urine Glucose (UA) (Negative) Urine Ketones (Negative) Urine Blood (Negative) Urine Nitrite (Negative) Urine Bilirubin (Negative) Urine Urobilinogen (Negative) Ur Leukocyte Esterase (Negative) 06/19/18 Range/Units 00:18 WBC (4.8-10.8) K/uL RBC (4.7-6.1) M/uL Hgb (14.0-18.0) g/dL POC Hgb (14.0-18.0) g/dl Hct (42-52) % POC Hct (42-52) % MCV (80-100) fL MCH (25-34) pg MCHC (32-36) g/dL RDW Std Deviation (36.4-46.3) fL RDW Coeff of [place] (11.5-14.5) % Plt Count (130-400) K/uL MPV (7.4-10.4) fL Immature Gran % (Auto) % Neut % (Auto) % Lymph % (Auto) % [place] % (Auto) % Eos % (Auto) % Baso % (Auto) % Immature Gran # (Auto) (0.00-0.02) K/uL Neut # (Auto) (1.4-6.5) K/uL Lymph # (Auto) (1.2-3.4) K/uL [place] # (Auto) (0.11-0.59) K/uL Eos # (Auto) (0-0.5) K/uL Baso # (Auto) (0-0.2) K/uL VBG pH (7.36-7.41) VBG pCO2 (38-50) mmHg VBG pO2 mmHg VBG HCO3 mmol/L VBG O2 Saturation % VBG Base Excess mEq/L Barometric Pressure mm/Hg POC Sodium (135-144) mEq/L Sodium (136-145) mmol/L POC Potassium (3.3-5.0) mEq/L Potassium (3.5-5.1) mmol/L POC Chloride (101-112) mEq/L Chloride (98-107) mmol/L Carbon Dioxide (21-32) mmol/L POC Total CO2 (24-31) mEq/l Anion Gap (3-11) POC Anion Gap (16-25) mmol/L POC BUN (7-18) mg/dl BUN (7-18) mg/dl Creatinine (0.6-1.4) mg/dl POC Creatinine (0.6-1.3) mg/dl Est Cr Clr Drug Dosing ml/min Est GFR ( Amer) Est GFR (Non-Af Amer) BUN/Creatinine Ratio (10-20) Glucose (70-99) mg/dl POC Glucose (70-99) POC Glucose (other) (70-99) mg/dl Calcium (8.5-10.1) mg/dl POC Ioniz Calcium Fitz (1.12-1.32) mmol/l Magnesium (1.8-2.4) mg/dl Total Bilirubin (0.2-1) mg/dl AST (15-37) U/L ALT (12-78) U/L Alkaline Phosphatase (45-117) U/L POC Troponin I (0-0.045) ng/ml Troponin I (0-0.045) ng/ml NT-Pro-B Natriuret Pep (0-1800) pg/ml Total Protein (6.4-8.2) gm/dl Albumin (3.4-5.0) gm/dl Globulin (2.5-4.0) gm/dl Albumin/Globulin Ratio (0.9-2) Lipase (73-393) U/L Procalcitonin (0-0.5) ng/ml Urine Color Yellow Urine Appearance Clear (Clear) Urine pH 5.0 (4.5-7.5) Ur Specific [place] 1.025 (1.000-1.030) Urine Protein Negative (Negative) Urine Glucose (UA) Negative (Negative) Urine Ketones Negative (Negative) Urine Blood Negative (Negative) Urine Nitrite Negative (Negative) Urine Bilirubin Negative (Negative) Urine Urobilinogen Negative (Negative) Ur Leukocyte Esterase Negative (Negative) Imaging Data Radiologist's Impression: Radiology results as stated below per my review and the radiologist's interpretation: CT ANGIOGRAM OF THE CHEST CLINICAL HISTORY: Atypical chest pain. COMPARISON STUDY: Chest x-ray dated 06/18/2018. TECHNIQUE: Following the IV administration of 92 cc of Optiray 320, CT angiogram of the chest was performed from the upper abdomen to the thoracic inlet utilizing the pulmonary embolus protocol. Images are reviewed in the axial, sagittal, and coronal planes. 3-D MIPS images are created and assessed. IV contrast was administered without complication. A dose lowering technique was utilized adhering to the principles of ALARA. The Examination is modestly degraded by motion artifact. CT DOSE: 765.72 mGy.cm FINDINGS: Thyroid: Imaged portions of the thyroid gland are normal in size and attenuation. Thoracic aorta: There is atherosclerotic calcification of the thoracic aorta, which is normal in caliber and demonstrates 4-vessel variant arch anatomy. No dissection is seen. Pulmonary vasculature: The pulmonary trunk is normal in caliber. There are no filling defects identified in main, lobar, or proximal segmental pulmonary branches to suggest pulmonary embolus. Evaluation of the peripheral branches is degraded by motion artifact. Heart: The heart is enlarged and without pericardial effusion. The coronary arteries are densely calcified. Lungs and pleural spaces: Evaluation of lung parenchyma is degraded by motion artifact. Diffuse intralobular septal thickening is consistent with congestive failure. Layering secretions are noted in the trachea. There are moderate bilateral pleural effusions with associated atelectasis. Mediastinum: There are scattered subcentimeter mediastinal lymph nodes. These are not pathologically enlarged by size criteria. Danyelle: Clear. Axillae: There is no axillary lymphadenopathy. Upper abdomen: Partially visualized upper abdominal viscera is within normal limits. Skeletal structures: The skeletal structures are osteopenic. Mild degenerative change is noted in the thoracic spine and shoulders. No lytic or blastic bony lesions are seen. IMPRESSION: 1. There is no evidence of pulmonary embolus in the main, lobar, or proximal segmental pulmonary arteries. 2. Cardiomegaly with evidence of congestive failure. 3. Moderate pleural effusions with associated atelectasis. Electronically signed by: Keith Allen M.D. 06/18/2018 7:52 PM SINGLE VIEW CHEST CLINICAL HISTORY: Atypical chest pain. FINDINGS: An AP, portable, upright chest radiograph is compared to study dated 10/31/2008. The examination is degraded by portable technique and patient rotation. The heart is enlarged and there is atherosclerotic calcification of the thoracic aorta. There is pulmonary vascular congestion and interstitial edema. There are small pleural effusions with bibasilar consolidation. No pneumothorax is seen. The skeletal structures are osteopenic. The bony thorax is grossly intact. Degenerative change is noted throughout the thoracic spine and in the shoulders. IMPRESSION: 1. Cardiomegaly with evidence of congestive failure and interstitial edema. 2. Small pleural effusions with bibasilar consolidation. Electronically signed by: Keith Allen M.D. 06/18/2018 7:[address] SCAN OF THE BRAIN WITHOUT IV CONTRAST CLINICAL HISTORY: Syncope. COMPARISON STUDY: CT of the brain dated 10/31/2008. TECHNIQUE: Unenhanced axial CT scan of the brain is performed from the vertex to the skull base. A dose lowering technique was utilized adhering to the principles of ALARA. CT DOSE: 537.48 mGy.cm FINDINGS: Brain parenchyma: There are age-related involutional changes noting mild subcortical and periventricular microangiopathic change. There is no hemorrhage, mass effect, or evidence of acute territorial ischemia by CT criteria. Sullivan- white matter differentiation is preserved. No extra-axial fluid collection is seen. Ventricles, sulci, cisterns: Prominent secondary to involutional change. Intracranial vasculature: There is atherosclerotic calcification of the cavernous carotid and vertebral arteries. Calvarium: Unremarkable. Sinuses and mastoids: The visualized paranasal sinuses are clear. The there is a small left mastoid effusion. The right mastoid air cells are well pneumatized. Orbits: The bony orbits are grossly intact. There are bilateral ocular lens impl ants. IMPRESSION: There is no hemorrhage, mass effect, or evidence of acute territorial ischemia by CT criteria. Electronically signed by: Keith Allen M.D. 06/18/2018 10:15 PM Dictated: 06/18/182212 Transcribed: 06/18/182212 ECG Data Attestation: I personally reviewed and interpreted this ECG as follows: Indication: SOB/dyspnea Rate (beats per minute): 106 Rhythm: sinus tachycardia Findings: + other (wide QRS, normal axis), + LBBB, + PVC and + Q waves (in lead 3) Blood Pressure Blood Pressure Findings: Elevated blood pressure Blood Pressure Disposition: further management by hospitalist WOLFGANG Narrative The patient is 77 year old white male with a past medical history of HTN and HLD who presents to the ER with complaints of a worsening shortness of breath that began on Friday. Differential diagnoses includes but is not limited to: pneumonia, bronchitis, COPD/Asthma exacerbation, pneumothorax, pulmonary embolism, congestive heart failure, and acute coronary syndrome. Patient was seen and evaluated the bedside. The patient was complaining of worsening shortness of breath. The patient did have an episode of syncope and was a rapid response in the ER waiting room. The patient was seen and was complaining of shortness of breath and placed on an oxygen mask due to concerns for decreased oxygenation. The patient does have decreased breath sounds at the bases with associated crackles. The patient denies any prior history of TN or lung disease. Patient did have chest x-ray CT angios of the chest blood work and EKG. The patient does appear to be in sinus tachycardia. Patient does have occasional PVCs. The patient's chest film and CT angios reflect congestive change consistent with heart failure. The patient does not have any evidence of PE. The patient did have a VBG which does not show CO2 retention and the patient does not appear acidotic. Patient has normal kidney function. The patient's troponin is not elevated. CT the head was negative. The patient was given a first dose of Lasix and subsequently admitted to the medicine service. Impression & Plan Heart failure, Respiratory failure with hypoxia, Syncope Critical Care Time I have personally spent greater than 40 minutes of critical care time in direct management of this patient. This includes bedside care, interpretation of diagnostic studies, and testing, discussion with consultants, patient, and family members, and other require inpatient management activities. This 40 minutes is in excess of all separately billable procedures. Critical Care Time: Yes Total Critical Care Time: 40 Discharge Plan Visit Data *Final* Discharge Date/Time: 06/18/18 22:30 Chief Complaint: Chest Pain Stated Complaint: CHEST PAIN, SOB ED Provider: [place] Discharge Problem: Heart failure, Respiratory failure with hypoxia, Syncope Patient Disposition: Admitted As Inpatient Discharge Instructions Interventions: ED Discharge Assessment Last Done: 06/18/18 22:30 Discharge Problem: Heart failure Qualifiers: Heart failure type: unspecified Heart failure chronicity: acute Qualified Code(s): I50.9 - Heart failure, unspecified Respiratory failure with hypoxia Qualifiers: Chronicity: acute Qualified Code(s): J96.01 - Acute respiratory failure with hypoxia Syncope Qualifiers: Syncope type: unspecified Qualified Code(s): R55 - Syncope and collapse The scribe's documentation has been prepared under my direction and personally reviewed by me in its entirety. I confirm that the note above accurately reflects all work, treatment, procedures, and medical decision making performed by me.
[2018-06-19] MEDS ORDERED: PNEUMOCOCCAL ADMINISTRATION CHARGE ONE (06:00)
[2018-06-19] MEDS ORDERED: PNEUMOCOCCAL POLYSACCHARIDES 25 MCG/0.5 ML VIAL/SYR IM ONE (06:00)
[2018-06-19 06:28] LABS: Basophils # (auto) 0.01 K/uL (0-0.2); Basophils % (auto) 0.1 %; Eosinophils # (auto) 0.08 K/uL (0-0.5); Eosinophils % (auto) 0.9 %; Hematocrit (blood only) 40.4 % (42-52); Hemoglobin 13.6 g/dL (14.0-18.0); Immature Granulocytes # (auto) 0.02 K/uL (0.00-0.02); Immature Granulocytes % (auto) 0.2 %; Lymphocytes # (auto) 1.82 K/uL (1.2-3.4); Lymphocytes % (auto) 21.4 %; Mean Corpuscular Hgb Conc 33.7 g/dL (32-36); Mean Corpuscular Volume 98.5 fL (80-100); Mean Platelet Volume 11.1 fL (7.4-10.4); Monocytes # (auto) 0.98 K/uL (0.11-0.59); Monocytes % (auto) 11.5 %; Neutrophils # (auto) 5.61 K/uL (1.4-6.5); Neutrophils % (auto) 65.9 %; Platelet Count 274 K/uL (130-400); RDW Coefficient of Variation 14.6 % (11.5-14.5); RDW Standard Deviation 52.9 fL (36.4-46.3); White Blood Count 8.52 K/uL (4.8-10.8)
[2018-06-19 06:47] LABS: Prothrombin Time 10.5 Seconds (9.0-12.0)
[2018-06-19 07:06] LABS: BUN Creatinine Ratio 19.6 (10-20); Calcium 9.1 mg/dl (8.5-10.1); Creatinine Clr Calc Pharmacy 67.6 ml/min; Est GFR (African American) 71.5; Est GFR (Non-African American) 61.7; Potassium 3.1 mmol/L (3.5-5.1)
[2018-06-19 07:12] LABS: Troponin I 0.058 ng/ml (0-0.045)
[2018-06-19] MEDS ORDERED: PERFLUTREN LIPID MICROSPHERE (DEFINITY) IV ONE (07:49)
[2018-06-19] MEDS ORDERED: hydroCHLOROthiazide 25 MG TAB PO SCH (09:00)
[2018-06-19] MEDS ORDERED: NAPROXEN 250 MG TAB PO SCH (09:00)
[2018-06-19] MEDS: ROSUVASTATIN CALCIUM 20 MG TAB PO SCH (09:01)
[2018-06-19] MEDS: IRBESARTAN 150 MG TAB PO SCH (09:01)
[2018-06-19] MEDS: NORTRIPTYLINE HCL 25 MG CAP PO SCH (09:02)
[2018-06-19] MEDS: PANTOprazole 40 MG TAB PO SCH (09:02)
[2018-06-19] MEDS: ENOXAPARIN INJ 40 MG/0.4 ML SYR SQ SCH (09:03)
[2018-06-19] MEDS ORDERED: POTASSIUM CHLORIDE 20 MEQ TABCR PO STA ×2 (09:48→18:33)
[2018-06-19] MEDS ORDERED: FUROSEMIDE 40 MG in SYRINGE 1 ML IV SCH (10:00)
--- NOTE | 2018-06-19 15:40 | Cardiology Consultation ---
Date of Consultation June 19, 2018 Assessment & Plan (1) Acute systolic CHF (congestive heart failure): He appears hypervolemic. He has severely reduced LV systolic function. Continue current diuretic therapy. He has diuresed well thus far. Monitor renal function and electrolytes closely. He was hypokalemic and did receive supplementation. Follow-up labs this afternoon. Low-sodium diet. Check daily weights. Strict I&Os. If he does not continue to diurese, would consider doubling the dose of Lasix. Would not initiate inotropic support at this time. Discontinue naproxen. Discontinue diltiazem. (2) Cardiomyopathy: We discussed the diagnosis in detail. Severely reduced LV systolic function. Given his multiple risk factors, concern for ischemic heart disease. Would treat for suspected coronary artery disease until proven otherwise. He is allergic to aspirin, therefore, initiate Plavix 75 mg daily. Low-dose beta- lobito recommended in place of diltiazem given CHF with reduced LV systolic function. Continue ARB. Coronary angiography was recommended when he is able to lie flat, hopefully in 2-3 days. Risks and benefits were discussed with him in detail and he was made aware that [facility] Prior to discharge, would recommend switching irbesartan to Entresto. (3) Chest pain: Chest pain may have been secondary to ischemic heart disease. Coronary angiography recommended. He does have slightly elevated troponins. Continue to monitor troponins until they have peaked. If they become more significantly elevated, ruling in for myocardial infarction, would recommend heparin drip for 48 hours. (4) Syncope: Could have been secondary to hypoxia however his oxygen saturation was only mildly reduced down to 85% according to documented vitals. Given LV systolic dysfunction, there is concern for ventricular arrhythmia as the etiology of syncope. We discussed this in detail. Start low-dose beta-lobito in the form of carvedilol 3.125 mg twice daily. Continue telemetry. We discussed ICD given his presentation however he adamantly declines at this time. He had a stepson who with an ICD. We discussed rationale of placing an ICD but he continues to decline. (5) HLD (hyperlipidemia): Continue high-intensity statin therapy for presumed CAD. (6) HTN (hypertension): Blood pressure adequately controlled. Discontinue diltiazem as noted above. Initiate low-dose beta-lobito. Continue ARB and diuretic therapy. (7) Mitral regurgitation: Non severe: Can be monitored over time. Disposition: Cardiology will continue to follow. Dr. Giron will be available over the weekend to assist in his care. Tentative cardiac catheterization early next week if he consents to have it done. NPO after midnight except medications. Recommend PCU. Highly complex medical issues. Thank you for allowing me to participate in the care of your patient. Please call for any other questions or concerns. Sincerely, Grabiel Good M.D. History of Present Illness Reason for Consultation: Acute CHF and positive troponin Requesting Physician: Dr. Bellamy Attending Physician: Sunshine Bellamy MD History of Present Illness Mr. Stephen is a very pleasant 77-year-old gentleman history significant for type 2 diabetes, hypertension, and dyslipidemia who presented to [facility] with shortness of breath, chest pain, and syncope. Approximately 5-6 days ago he noticed increasing shortness of breath, which progressed throughout the week. The past few days he developed edema and then yesterday, on presentation, he had substernal chest discomfort that radiated through to his back in the interscapular area. The pain lasted for approximately 2 hours. He has been experiencing orthopnea as well. He maintains a low-sodium diet. While walking into the emergency department, after driving himself here, he had a syncopal episode. He completely blacked out does not remember hitting the ground. Initially he was unable to walk all the way into the ER without stopping to catch his breath on a bench. He is not yet back to baseline but admits that his breathing has improved. He is however using supplemental oxygen while hospitalized. He has not had any further chest discomfort or syncope. He denies palpitations, melena, hematochezia, hematuria, nausea, vomiting, diarrhea, fever, stroke or stroke- like symptoms. On 12/16/2007, he underwent a dobutamine stress echo and baseline LV systolic function was reported as 45% with prior inferoposterior AR. Slight ischemia was reported involving the apical portion of the inferior wall. He does not recall ever undergoing a cardiac catheterization. Review of systems: As above. Family history: He has had at least 3 uncles with CAD. Social history: He quit smoking over 10 years ago after smoking 1 pack per day for many years. No alcohol. No drugs. He is a . He has 6 children. He has many grandchildren. He is unaccompanied. Allergies Allergy/AdvReac Type Severity Reaction Status Date / Time aspirin Allergy Mild RASH Verified 06/18/18 18:37 Home Medications Home Medications Medication Instructions Recorded Confirmed Type diltiazem HCl 240 mg PO BID 06/18/18 06/18/18 History glipizide 5 mg PO BID 06/18/18 06/18/18 History irbesartan-hydrochlorothiazide 1 tab PO DAILY 06/18/18 06/18/18 History naproxen 500 mg PO DAILY 06/18/18 06/18/18 History nortriptyline 75 mg PO DAILY 06/18/18 06/18/18 History omeprazole 20 mg PO DAILY 06/18/18 06/18/18 History rosuvastatin 20 mg PO DAILY 06/18/18 06/18/18 History Patient History Medical History HLD (hyperlipidemia) HTN (hypertension) Chronic GERD Diabetes Surgical History S/P appendectomy Social History Preferred Language: Martiniquais Communication Ability: Effective Income Tax Manager Required: No Beliefs That Will Affect Care: None Current Living Situation: Alone Other Information That Helps Us Care for You: No Feels Safe at Home: Yes Safety Concerns: Feels Safe At This Time Smoking Status: Former smoker Hx Alcohol Use: No Hx Substance Use: No Physical Exam Vital Signs (Past 24 Hours): Last Vital Signs Temp 36.4 C L 06/19/18 11:54 Pulse 95 H 06/19/18 11:54 Resp 16 06/19/18 11:54 BP 108/65 06/19/18 11:54 Pulse Ox 95 06/19/18 11:54 Intake & Output 06/17/18 06/18/18 06/19/18 06/20/18 06:59 06:59 06:59 06:59 Intake Total 240 / 240 600 / 600 Output Total 1575 / 1575 850 / 850 Balance -1335 / -1335 -250 / -250 Weight 117.7 kg 117.7 kg Physical Exam: Gen.: No acute distress. Alert and oriented. HEENT: Anicteric sclera. Neck: No appreciable JVD, but thick neck. No bruits. Normal carotid upstrokes bilaterally. Cardiac: PMI was nonpalpable. No ventricular heave. Regular. Normal S1-S2. No murmurs, rubs, or gallops. Pulmonary: Clear to auscultation bilaterally without wheezes, rales, or rhonchi. Abdomen: Soft, nontender, nondistended, with normoactive bowel sounds. No bruits noted. Extremities: 2+ radial pulses bilaterally. 2+ posterior tibialis pulses bilaterally. 1 to 2+ bilateral lower extremity edema. No cyanosis. Psychiatric: Affect appears appropriate. Results & Data Laboratory Results Laboratory Results - last 24 hr 06/18/18 06/18/18 06/18/18 18:36 18:36 18:36 WBC 11.19 H RBC 4.23 L Hgb 14.3 POC Hgb Hct 42.1 POC Hct MCV 99.5 MCH 33.8 MCHC 34.0 RDW Std Deviation 53.0 H RDW Coeff of [place] 14.7 H Plt Count 297 MPV 11.4 H Immature Gran % (Auto) 0.3 Neut % (Auto) 62.1 Lymph % (Auto) 26.5 [place] % (Auto) 9.2 Eos % (Auto) 1.7 Baso % (Auto) 0.2 Immature Gran # (Auto) 0.03 H Neut # (Auto) 6.96 H Lymph # (Auto) 2.96 [place] # (Auto) 1.03 H Eos # (Auto) 0.19 Baso # (Auto) 0.02 PT INR VBG pH VBG pCO2 VBG pO2 VBG HCO3 VBG O2 Saturation VBG Base Excess Barometric Pressure POC Sodium Sodium 133 L POC Potassium Potassium 3.7 POC Chloride Chloride 98 Carbon Dioxide 25 POC Total CO2 Anion Gap 10.0 POC Anion Gap POC BUN BUN 24 H Creatinine 1.32 POC Creatinine Est Cr Clr Drug Dosing 58.4 Est GFR ( Amer) 59.9 Est GFR (Non-Af Amer) 51.7 BUN/Creatinine Ratio 17.9 Glucose 257 H POC Glucose POC Glucose (other) Calcium 9.5 POC Ioniz Calcium Fitz Magnesium 1.9 Cancelled Total Bilirubin 0.5 AST 14 L ALT 20 Alkaline Phosphatase 92 POC Troponin I Troponin I 0.025 NT-Pro-B Natriuret Pep Total Protein 7.9 Albumin 3.8 Globulin 4.1 H Albumin/Globulin Ratio 0.9 Lipase 67 L Procalcitonin Urine Color Urine Appearance Urine pH Ur Specific [place] Urine Protein Urine Glucose (UA) Urine Ketones Urine Blood Urine Nitrite Urine Bilirubin Urine Urobilinogen Ur Leukocyte Esterase 06/18/18 06/18/18 06/18/18 18:36 18:36 18:42 WBC RBC Hgb POC Hgb Hct POC Hct MCV MCH MCHC RDW Std Deviation RDW Coeff of [place] Plt Count MPV Immature Gran % (Auto) Neut % (Auto) Lymph % (Auto) [place] % (Auto) Eos % (Auto) Baso % (Auto) Immature Gran # (Auto) Neut # (Auto) Lymph # (Auto) [place] # (Auto) Eos # (Auto) Baso # (Auto) PT INR VBG pH VBG pCO2 VBG pO2 VBG HCO3 VBG O2 Saturation VBG Base Excess Barometric Pressure POC Sodium Sodium POC Potassium Potassium POC Chloride Chloride Carbon Dioxide POC Total CO2 Anion Gap POC Anion Gap POC BUN BUN Creatinine POC Creatinine Est Cr Clr Drug Dosing Est GFR ( Amer) Est GFR (Non-Af Amer) BUN/Creatinine Ratio Glucose POC Glucose POC Glucose (other) Calcium POC Ioniz Calcium Fitz Magnesium Total Bilirubin AST ALT Alkaline Phosphatase POC Troponin I < 0.03 Troponin I NT-Pro-B Natriuret Pep 1224 Total Protein Albumin Globulin Albumin/Globulin Ratio Lipase Procalcitonin < 0.05 Urine Color Urine Appearance Urine pH Ur Specific [place] Urine Protein Urine Glucose (UA) Urine Ketones Urine Blood Urine Nitrite Urine Bilirubin Urine Urobilinogen Ur Leukocyte Esterase 06/18/18 06/18/18 06/18/18 19:06 19:16 23:35 WBC RBC Hgb POC Hgb 15.3 Hct POC Hct 45 MCV MCH MCHC RDW Std Deviation RDW Coeff of [place] Plt Count MPV Immature Gran % (Auto) Neut % (Auto) Lymph % (Auto) [place] % (Auto) Eos % (Auto) Baso % (Auto) Immature Gran # (Auto) Neut # (Auto) Lymph # (Auto) [place] # (Auto) Eos # (Auto) Baso # (Auto) PT INR VBG pH 7.38 VBG pCO2 47 VBG pO2 32 VBG HCO3 27 VBG O2 Saturation < 60.0 VBG Base Excess 1.5 Barometric Pressure 734.1 POC Sodium 134 L Sodium POC Potassium 3.7 Potassium POC Chloride 97 L Chloride Carbon Dioxide POC Total CO2 25 Anion Gap POC Anion Gap 16.0 POC BUN 24 H BUN Creatinine POC Creatinine 1.1 Est Cr Clr Drug Dosing Est GFR ( Amer) Est GFR (Non-Af Amer) BUN/Creatinine Ratio Glucose POC Glucose 238 H POC Glucose (other) 263 H Calcium POC Ioniz Calcium Fitz 1.13 Magnesium Total Bilirubin AST ALT Alkaline Phosphatase POC Troponin I Troponin I NT-Pro-B Natriuret Pep Total Protein Albumin Globulin Albumin/Globulin Ratio Lipase Procalcitonin Urine Color Urine Appearance Urine pH Ur Specific [place] Urine Protein Urine Glucose (UA) Urine Ketones Urine Blood Urine Nitrite Urine Bilirubin Urine Urobilinogen Ur Leukocyte Esterase 06/19/18 06/19/18 06/19/18 00:18 00:33 06:03 WBC 8.52 RBC 4.10 L Hgb 13.6 L POC Hgb Hct 40.4 L POC Hct MCV 98.5 MCH 33.2 MCHC 33.7 RDW Std Deviation 52.9 H RDW Coeff of [place] 14.6 H Plt Count 274 MPV 11.1 H Immature Gran % (Auto) 0.2 Neut % (Auto) 65.9 Lymph % (Auto) 21.4 [place] % (Auto) 11.5 Eos % (Auto) 0.9 Baso % (Auto) 0.1 Immature Gran # (Auto) 0.02 Neut # (Auto) 5.61 Lymph # (Auto) 1.82 [place] # (Auto) 0.98 H Eos # (Auto) 0.08 Baso # (Auto) 0.01 PT INR VBG pH VBG pCO2 VBG pO2 VBG HCO3 VBG O2 Saturation VBG Base Excess Barometric Pressure POC Sodium Sodium POC Potassium Potassium POC Chloride Chloride Carbon Dioxide POC Total CO2 Anion Gap POC Anion Gap POC BUN BUN Creatinine POC Creatinine Est Cr Clr Drug Dosing Est GFR ( Amer) Est GFR (Non-Af Amer) BUN/Creatinine Ratio Glucose POC Glucose POC Glucose (other) Calcium POC Ioniz Calcium Fitz Magnesium Total Bilirubin AST ALT Alkaline Phosphatase POC Troponin I Troponin I 0.043 NT-Pro-B Natriuret Pep Total Protein Albumin Globulin Albumin/Globulin Ratio Lipase Procalcitonin Urine Color Yellow Urine Appearance Clear Urine pH 5.0 Ur Specific [place] 1.025 Urine Protein Negative Urine Glucose (UA) Negative Urine Ketones Negative Urine Blood Negative Urine Nitrite Negative Urine Bilirubin Negative Urine Urobilinogen Negative Ur Leukocyte Esterase Negative 06/19/18 06/19/18 06/19/18 06:03 06:03 07:40 WBC RBC Hgb POC Hgb Hct POC Hct MCV MCH MCHC RDW Std Deviation RDW Coeff of [place] Plt Count MPV Immature Gran % (Auto) Neut % (Auto) Lymph % (Auto) [place] % (Auto) Eos % (Auto) Baso % (Auto) Immature Gran # (Auto) Neut # (Auto) Lymph # (Auto) [place] # (Auto) Eos # (Auto) Baso # (Auto) PT 10.5 INR 1.0 VBG pH VBG pCO2 VBG pO2 VBG HCO3 VBG O2 Saturation VBG Base Excess Barometric Pressure POC Sodium Sodium 135 L POC Potassium Potassium 3.1 L D POC Chloride Chloride 98 Carbon Dioxide 29 POC Total CO2 Anion Gap 8.0 POC Anion Gap POC BUN BUN 22 H Creatinine 1.14 POC Creatinine Est Cr Clr Drug Dosing 67.6 Est GFR ( Amer) 71.5 Est GFR (Non-Af Amer) 61.7 BUN/Creatinine Ratio 19.6 Glucose 141 H POC Glucose 131 H POC Glucose (other) Calcium 9.1 POC Ioniz Calcium Fitz Magnesium Total Bilirubin AST ALT Alkaline Phosphatase POC Troponin I Troponin I 0.058 H* NT-Pro-B Natriuret Pep Total Protein Albumin Globulin Albumin/Globulin Ratio Lipase Procalcitonin Urine Color Urine Appearance Urine pH Ur Specific [place] Urine Protein Urine Glucose (UA) Urine Ketones Urine Blood Urine Nitrite Urine Bilirubin Urine Urobilinogen Ur Leukocyte Esterase 06/19/18 06/19/18 11:37 11:55 WBC RBC Hgb POC Hgb Hct POC Hct MCV MCH MCHC RDW Std Deviation RDW Coeff of [place] Plt Count MPV Immature Gran % (Auto) Neut % (Auto) Lymph % (Auto) [place] % (Auto) Eos % (Auto) Baso % (Auto) Immature Gran # (Auto) Neut # (Auto) Lymph # (Auto) [place] # (Auto) Eos # (Auto) Baso # (Auto) PT INR VBG pH VBG pCO2 VBG pO2 VBG HCO3 VBG O2 Saturation VBG Base Excess Barometric Pressure POC Sodium Sodium POC Potassium Potassium POC Chloride Chloride Carbon Dioxide POC Total CO2 Anion Gap POC Anion Gap POC BUN BUN Creatinine POC Creatinine Est Cr Clr Drug Dosing Est GFR ( Amer) Est GFR (Non-Af Amer) BUN/Creatinine Ratio Glucose POC Glucose 195 H POC Glucose (other) Calcium POC Ioniz Calcium Fitz Magnesium Total Bilirubin AST ALT Alkaline Phosphatase POC Troponin I Troponin I 0.054 H* NT-Pro-B Natriuret Pep Total Protein Albumin Globulin Albumin/Globulin Ratio Lipase Procalcitonin Urine Color Urine Appearance Urine pH Ur Specific [place] Urine Protein Urine Glucose (UA) Urine Ketones Urine Blood Urine Nitrite Urine Bilirubin Urine Urobilinogen Ur Leukocyte Esterase Diagnostic Findings CTA 06/18/2018: No PE. Cardiomegaly with evidence of congestive failure per Radiology. Moderate pleural effusions. ECG personally reviewed: ECG 06/19/2018: Sinus rhythm with PVCs. LBBB. Echo 06/19/2018: Preliminary review demonstrated severely reduced LV systolic function with an EF of 25-30%. Severe LV dilation. Akinesis of the inferolateral wall and base to mid inferior wall. Otherwise, global hypokinesis. Non severe mitral regurgitation. Medications Administered Current Inpatient Medications Acetaminophen (Tylenol) 650 mg PO Q4H PRN PRN Reason: pain/fever Stop: 07/18/18 23:25 Carvedilol (Coreg) 3.125 mg PO BID [facility] Stop: 07/19/18 20:59 Dextrose (Dextrose 50%) 25 - 50 ml IV UD PRN; Protocol PRN Reason: Hypoglycemia Protocol Stop: 07/18/18 23:25 Enoxaparin Sodium (Lovenox) 40 mg SQ QAM HERBIE Stop: 07/19/18 08:59 Last Admin: 06/19/18 09:03 Dose: 40 mg Documented by: Glucagon (Glucagen) 1 mg SQ UD PRN; Protocol PRN Reason: Hypoglycemia Protocol Stop: 07/18/18 23:25 Glucose (Dex4 Glucose) 4 - 8 tabs PO UD PRN; Protocol PRN Reason: Hypoglycemia Protocol Stop: 07/18/18 23:25 Glucose (Glucose 40%) 15 - 30 gm PO UD PRN; Protocol PRN Reason: Hypoglycemia Protocol Stop: 07/18/18 23:25 Furosemide 40 mg/ Syringe 5 mls @ 4 mls/min IV BID HERBIE Stop: 07/19/18 09:59 Last Admin: 06/19/18 11:12 Dose: 4 mls/min Documented by: Insulin Aspart (Novolog Flexpen) 0 units SC ACHS HERBIE Stop: 07/18/18 23:25 Last Admin: 06/19/18 13:25 Dose: 7 units Documented by: Insulin Glargine (Lantus Solostar Pen) 10 units SC BID [facility] Stop: 07/18/18 23:25 Last Admin: 06/19/18 09:03 Dose: 10 units Documented by: Irbesartan (Avapro) 300 mg PO DAILY HERBIE Stop: 07/19/18 08:59 Last Admin: 06/19/18 09:01 Dose: 300 mg Documented by: Miscellaneous (Carbohydrates For Hypoglycemia) 15 - 30 gm PO UD PRN PRN Reason: Hypoglycemia Treatment Stop: 07/18/18 23:25 Nortriptyline HCl (Pamelor) 75 mg PO DAILY HERBIE Stop: 07/19/18 08:59 Last Admin: 06/19/18 09:02 Dose: 75 mg Documented by: Pantoprazole Sodium (Protonix) 40 mg PO DAILY [facility] Stop: 07/19/18 08:59 Last Admin: 06/19/18 09:02 Dose: 40 mg Documented by: Rosuvastatin Calcium (Crestor) 20 mg PO DAILY [facility] Stop: 07/19/18 08:59 Last Admin: 06/19/18 09:01 Dose: 20 mg Documented by: (1) Syncope Syncope type: unspecified Qualified Code(s): R55 - Syncope and collapse (2) HLD (hyperlipidemia) Hyperlipidemia type: unspecified Qualified Code(s): E78.5 - Hyperlipidemia, unspecified (3) HTN (hypertension) Hypertension type: essential hypertension Qualified Code(s): I10 - Essential (primary) hypertension
[2018-06-19 16:14] LABS: Creatinine Clr Calc Pharmacy 55.9 ml/min; Est GFR (African American) 56.8; Potassium 3.5 mmol/L (3.5-5.1)
[2018-06-19] MEDS: CLOPIDOGREL BISULFATE 75 MG TAB PO SCH (17:36)
[2018-06-19] MEDS ORDERED: FUROSEMIDE 40 MG/4 ML VIAL IV ONE (18:20)
--- NOTE | 2018-06-19 18:33 | Hospitalist Progress Note ---
Date of Service June 19, 2018 Assessment & Plan (1) Respiratory failure with hypoxia: Patient with 3 days of progressive dyspnea and orthopnea. With edema and weight gain. Chest imaging with suggestion of pulmonary edema. Secondary to new onset acute systolic and diastolic CHF. Per review of records patient with mild CHF and possibly CAD - stress echo in 2008 mentions resting echo with evidence of prior inferoposterior MS and mild LV dysfunction with EF of 45%. segmental abnormalities reflective of probable underlying ischemic heart disease with hypokinetic posterior wall and inferior wall. Pro-calcitonin is negative-checked in the setting of productive cough and mild leukocytosis which is now resolved without antibiotics -Continue diuresis -Strict I/O's, daily weights -Supplemental O2 to keep pulse ox greater than 90% (2) Acute combined systolic (congestive) and diastolic (congestive) heart failure: With progressive dyspnea, orthopnea, weight gain and edema. Chest x-ray with pleural effusions and pulmonary edema Echocardiogram here with severely reduced LVEF of 20%, wall motion abnormalities, mild/moderate mitral regurgitation, grade 2 diastolic dysfunction -Is diuresing well so far today -Continue Lasix 40 mill grams IV twice daily -Follow BMP and replace potassium -Discontinue diltiazem and start carvedilol 3.125 mg p.o. twice daily -Appreciate cardiology consultation -Plan for cardiac catheterization on Friday if he can lie flat -Strict I's and O's, daily weights, low-sodium diet (3) Syncope: Patient with syncopal event upon arrival to ER. Head trauma, CT head nega tive. Neurologically intact. -May have been secondary to ventricular tachycardia versus hypoxia -Echocardiogram with results as above -Following on telemetry (4) Diabetes: QgB2U=4.6 on 05/08/18. Patient reports being compliant with glipizide. Blood sugar needs to be elevated -Hold Glipizide -Continue Lantus 10u BID -Tighten down sliding scale -ADA/low Na diet as tolerated -Continue Nortriptyline for neuropathy -Consider discharged home on metformin -Appreciate diabetic nurse educator consultation (5) Chronic GERD: Chronic. Stable -Continue Omeprazole daily (6) HLD (hyperlipidemia): Chronic -Continue Crestor 20 (7) HTN (hypertension): Blood pressure well controlled at present -Discontinue diltiazem and start carvedilol as above -Continue Irbesartan but will discontinue hydrochlorthiazide as is on Lasix -Diuresis as above -Continue to monitor (8) Mitral regurgitation: Moderate on echocardiogram -Can be followed as an outpatient (9) Cardiomyopathy: Ischemic cardiomyopathy most likely with wall motion abnormalities as above (10) Nonsustained ventricular tachycardia: With short runs of nonsustained ventricular tachycardia up to 6 beats throughout the day -Replace potassium, check BMP later this evening -Follow on telemetry In the setting of low EF, this is concerning and may have caused his syncope as above (11) Hypokalemia: Secondary to loop diuretic use -Replace potassium -Follow BMP in the morning (12) Hyponatremia: Sodium mildly low at 130 but corrected for glucose is slightly higher than that -Could be from volume overload -Follow BMP in the morning -Continue diuresis (13) DVT prophylaxis: Lovenox Disposition-transfer from medical telemetry to PCU today for closer monitoring Subjective Patient feeling a little bit better and a little less short of breath. Denies chest pain but says he always feels a little "tickle" in his chest. I discussed the case at length with the specialized developer. Telemetry with normal sinus rhythm to sinus tachycardia with rates in the 90s to low 100s, PVCs and small runs of V. tach 2-6 beats each Review of Systems All systems reviewed & are unremarkable except as noted in HPI & below Physical Exam Vital Signs (Past 24 Hours): Last Vital Signs Temp 36.5 C 06/19/18 17:05 Pulse 89 06/19/18 17:05 Resp 19 06/19/18 17:05 BP 107/91 06/19/18 17:05 Pulse Ox 95 06/19/18 17:05 Constitutional: WD/WN, vitals as above + morbidly obese Eyes: PERRL, conjunctivae normal, anicteric sclerae ENMT: external ear and nose normal, oropharynx normal Neck: trachea midline, no thyromegaly Respiratory: normal respiratory effort Auscultation: + diminished lung sounds (Bibasilar); no crackles and no wheezes Cardiovascular: Rate/Rhythm: regular rate and regular rhythm Heart Sounds: no murmur Extremities: + edema (2+ pitting edema of the lower extremities to the thighs bilaterally) Gastrointestinal (Abdomen): normal bowel sounds, soft, nontender, no hepatosplenomegaly Musculoskeletal: Extremities: extremities normal to inspection; no cyanosis and no clubbing Skin: no rashes, warm and dry Neurologic: moves all extremities and awake; no focal motor deficits Psychiatric: Orientation: alert and oriented x 3 Affect: + tearful affect Results & Data Laboratory Results 06/20/18 06/19/18 06/19/18 Range/Units 01:45 20:11 16:47 Sodium (136-145) mmol/L Potassium (3.5-5.1) mmol/L Chloride (98-107) mmol/L Carbon Dioxide (21-32) mmol/L Anion Gap (3-11) BUN (7-18) mg/dl Creatinine (0.6-1.4) mg/dl Est Cr Clr Drug Dosing ml/min Est GFR ( Amer) Est GFR (Non-Af Amer) BUN/Creatinine Ratio (10-20) Glucose (70-99) mg/dl POC Glucose 179 H 281 H 245 H (70-99) Calcium (8.5-10.1) mg/dl Troponin I (0-0.045) ng/ml TSH (0.300-4.500) uIu/ml 06/19/18 06/19/18 06/19/18 Range/Units 15:50 11:55 11:37 Sodium 130 L (136-145) mmol/L Potassium 3.5 (3.5-5.1) mmol/L Chloride 93 L (98-107) mmol/L Carbon Dioxide 30 (21-32) mmol/L Anion Gap 7.0 (3-11) BUN 25 H (7-18) mg/dl Creatinine 1.38 (0.6-1.4) mg/dl Est Cr Clr Drug Dosing 55.9 ml/min Est GFR ( Amer) 56.8 Est GFR (Non-Af Amer) 49.0 BUN/Creatinine Ratio 18.0 (10-20) Glucose 216 H (70-99) mg/dl POC Glucose 195 H (70-99) Calcium 9.0 (8.5-10.1) mg/dl Troponin I 0.054 H* (0-0.045) ng/ml TSH 0.874 (0.300-4.500) uIu/ml 06/19/18 06/19/18 Range/Units 07:40 06:03 Sodium 135 L (136-145) mmol/L Potassium 3.1 L D (3.5-5.1) mmol/L Chloride 98 (98-107) mmol/L Carbon Dioxide 29 (21-32) mmol/L Anion Gap 8.0 (3-11) BUN 22 H (7-18) mg/dl Creatinine 1.14 (0.6-1.4) mg/dl Est Cr Clr Drug Dosing 67.6 ml/min Est GFR ( Amer) 71.5 Est GFR (Non-Af Amer) 61.7 BUN/Creatinine Ratio 19.6 (10-20) Glucose 141 H (70-99) mg/dl POC Glucose 131 H (70-99) Calcium 9.1 (8.5-10.1) mg/dl Troponin I 0.058 H* (0-0.045) ng/ml TSH (0.300-4.500) uIu/ml (1) Respiratory failure with hypoxia Chronicity: acute Qualified Code(s): J96.01 - Acute respiratory failure with hypoxia (2) Diabetes Diabetes mellitus complication detail: with polyneuropathy Diabetes mellitus complication status: with neurologic complications Diabetes mellitus skilled nursing insulin use: without skilled nursing use Diabetes mellitus type: type 2 Qualified Code(s): E11.42 - Type 2 diabetes mellitus with diabetic polyneuropathy (3) HLD (hyperlipidemia) Hyperlipidemia type: unspecified Qualified Code(s): E78.5 - Hyperlipidemia, unspecified (4) Syncope Syncope type: unspecified Qualified Code(s): R55 - Syncope and collapse (5) HTN (hypertension) Hypertension type: essential hypertension Qualified Code(s): I10 - Essential (primary) hypertension
[2018-06-19] MEDS: FUROSEMIDE 40 MG in SYRINGE 1 ML IV SCH (18:37)
[2018-06-19] MEDS: CARVEDILOL 3.125 MG TAB PO SCH (21:43)
[2018-06-20 07:41] LABS: BUN Creatinine Ratio 23.8 (10-20); Calcium 8.6 mg/dl (8.5-10.1); Creatinine Clr Calc Pharmacy 77.9 ml/min; Est GFR (African American) 84.8; Est GFR (Non-African American) 73.2; Magnesium 1.7 mg/dl (1.8-2.4); Potassium 3.6 mmol/L (3.5-5.1)
[2018-06-20] MEDS: FUROSEMIDE 40 MG in SYRINGE 1 ML IV SCH ×2 (08:26→17:04)
[2018-06-20] MEDS: INSULIN ASPART 100 UNITS/ML 3 ML PEN SC SCH ×4 (08:26→20:39)
[2018-06-20] MEDS: ROSUVASTATIN CALCIUM 20 MG TAB PO SCH (08:27)
[2018-06-20] MEDS: CLOPIDOGREL BISULFATE 75 MG TAB PO SCH (08:27)
[2018-06-20] MEDS: IRBESARTAN 150 MG TAB PO SCH (08:27)
[2018-06-20] MEDS: CARVEDILOL 3.125 MG TAB PO SCH ×2 (08:27→20:36)
[2018-06-20] MEDS: INSULIN GLARGINE SOLOSTAR 100 UNITS/ML 3 ML PEN SC SCH ×2 (08:28→20:38)
[2018-06-20] MEDS: ENOXAPARIN INJ 40 MG/0.4 ML SYR SQ SCH (08:28)
[2018-06-20] MEDS: NORTRIPTYLINE HCL 25 MG CAP PO SCH (08:28)
[2018-06-20] MEDS: PANTOprazole 40 MG TAB PO SCH (08:28)
[2018-06-20] MEDS ORDERED: POTASSIUM CHLORIDE 20 MEQ TABCR PO STA (09:03)
[2018-06-20] MEDS: MAGNESIUM SULFATE / D5W 1 GM/100 ML BAG IV SCH ×2 (10:12→11:09)
[2018-06-20] MEDS: ACETAMINOPHEN 325 MG TAB PO PRN (11:09)
--- NOTE | 2018-06-20 11:11 | Cardiology Progress Note ---
Date of Service June 20, 2018 Assessment & Plan (1) Acute systolic CHF (congestive heart failure): He continues to be fluid overloaded although he has diuresed quite a bit. Weight is pending. Agree with continued diuresis. (2) Cardiomyopathy: He is under evaluation for his cardiomyopathy, catheterization is pending for Friday. I discussed this with him and he is agreeable. The catheterization will depend on the next steps (intervention, bypass surgery, versus medical therapy). (3) Chest pain: He has had no further chest discomfort. (4) Syncope: He has had no further lightheadedness or dizziness during the hospitalization. His outpatient syncopal event is concerning. Given his severe left ventricular dysfunction and nonsustained ventricular tachycardia on telemetry I do not think he should go home without some protection from ventricular arrhythmias. Considerations are for a LifeVest or an implanted device. We will need to wait for the results of the catheterization before making a final decision. Subjective He is feeling well today. He seems to be in good spirits. He denies any chest discomfort, feels that he is urinating a lot and is not having shortness of breath. No palpitations. Physical Exam Vital Signs (Past 24 Hours): Last Vital Signs Temp 36.5 C 06/20/18 07:32 Pulse 91 H 06/20/18 08:00 Resp 22 06/20/18 07:32 BP 110/67 06/20/18 07:32 Pulse Ox 96 06/20/18 07:32 Physical Exam: Constitutional: Alert, cooperative and in no distress. Pulmonary: Decreased breath sounds on auscultation bilaterally, prolonged expiration. Cardiac: Regular rhythm with no murmur, gallop or rub. Abdomen: Soft, nontender with normal bowel sounds. Extremities: +2 bilateral pretibial edema. Skin: No rash, ecchymoses or petechiae. Results & Data Diagnostic Findings Telemetry: Sinus rhythm with premature ventricular beats and runs of nonsustained ventricular tachycardia, predominantly 3 beat runs overnight (1) Syncope Syncope type: unspecified Qualified Code(s): R55 - Syncope and collapse
--- NOTE | 2018-06-20 11:37 | Hospitalist Progress Note ---
Date of Service June 20, 2018 Assessment & Plan (1) Respiratory failure with hypoxia: Patient presented with 3 days of progressive dyspnea and orthopnea. With edema and weight gain. Chest imaging with suggestion of pulmonary edema. Secondary to new onset acute systolic and diastolic CHF. Per review of records patient with mild chronic systolic CHF and possibly CAD - stress echo in 2008 mentions resting echo with evidence of prior inferoposterior MD and mild LV dysfunction with EF of 45%. segmental abnormalities reflective of probable underlying ischemic heart disease with hypokinetic posterior wall and inferior wall. Pro-calcitonin is negative-checked in the setting of productive cough and mild leukocytosis which is now resolved without antibiotics Remains on oxygen -Continue diuresis -Strict I/O's, daily weights -Supplemental O2 to keep pulse ox greater than 90% (2) Acute combined systolic (congestive) and diastolic (congestive) heart failure: With progressive dyspnea, orthopnea, weight gain and edema. Chest x-ray with pleural effusions and pulmonary edema Echocardiogram here with severely reduced LVEF of 20%, wall motion abnormalities, mild/moderate mitral regurgitation, grade 2 diastolic dysfunction -Continues to diurese well, now net -2.7 L and weight is down -Continue Lasix 40 mg IV twice daily -Follow BMP and replace potassium to keep > 4.0 -Discontinued diltiazem and start carvedilol 3.125 mg p.o. twice daily -Appreciate cardiology consultation -Plan for cardiac catheterization on Friday if he can lie flat -Strict I's and O's, daily weights, low-sodium diet -Cardio added Plavix 75mg po qAM due to presumed CAD -will likely need a LifeVest upon discharge (3) Syncope: Patient with syncopal event upon arrival to ER. Head trauma, CT head negative. Neurologically intact. -May have been secondary to ventricular tachycardia versus hypoxia -Echocardiogram with results as above -Following on telemetry (4) Diabetes: RgY2F=5.6 on 05/08/18. Patient reports being compliant with glipizide. Blood sugar continues to be elevated though improved from previous -Hold Glipizide -Increase Lantus to 13 units BID -Continue sliding scale insulin -ADA/low Na diet as tolerated -Continue Nortriptyline for neuropathy -Consider metformin upon discharge -Appreciate diabetic nurse educator consultation (5) Chronic GERD: Chronic. Stable -Continue Omeprazole daily (6) HLD (hyperlipidemia): Chronic -Continue Crestor 20 (7) HTN (hypertension): Blood pressure well controlled at present -Discontinued home diltiazem and started carvedilol as above -Continue Irbesartan but discontinued hydrochlorthiazide as is on Lasix now and will likely remain on that -Diuresis as above -Continue to monitor (8) Mitral regurgitation: Moderate on echocardiogram -Can be followed as an outpatient (9) Cardiomyopathy: Ischemic cardiomyopathy most likely with wall motion abnormalities as above (10) Nonsustained ventricular tachycardia: With short runs of nonsustained ventricular tachycardia up to 6 beats initially and now improved -Continue to replace potassium, follow BMP in the morning -Follow on telemetry In the setting of low EF, this is concerning and may have caused his syncope as above -He will likely need a LifeVest upon discharge (11) Hypokalemia: Secondary to loop diuretic use -Improved today -Replace potassium -Follow BMP in the morning (12) Hyponatremia: Sodium mildly low at 130 but corrected for glucose is slightly higher than that, improved today to 132 -Likely secondary to volume overload -Follow BMP in the morning -Continue diuresis (13) Hypomagnesemia: Replace Following the morning (14) 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 No chest pain, not feeling short of breath but not ambu lating much. He is mostly upset about not being able to sleep because of all the interruptions. Telemetry with normal sinus rhythm, rates 80s-90s, with several 2-3 beat runs of V. tach Review of Systems All systems reviewed & are unremarkable except as noted in HPI & below Physical Exam Vital Signs (Past 24 Hours): Last Vital Signs Temp 36.5 C 06/20/18 07:32 Pulse 91 H 06/20/18 08:00 Resp 22 06/20/18 07:32 BP 110/67 06/20/18 07:32 Pulse Ox 96 06/20/18 07:32 Constitutional: WD/WN, vitals as above + morbidly obese Eyes: PERRL, conjunctivae normal, anicteric sclerae Neck: trachea midline, no thyromegaly Respiratory: normal respiratory effort Auscultation: + diminished lung sounds (Bibasilar); no crackles and no wheezes Cardiovascular: Rate/Rhythm: regular rate and regular rhythm Heart Sounds: no murmur Extremities: + edema (2+ pitting edema of the lower extremities to the thighs bilaterally slightly improved from yesterday) Gastrointestinal (Abdomen): normal bowel sounds, soft, nontender, no hepatosplenomegaly Musculoskeletal: Extremities: extremities normal to inspection; no cyanosis and no clubbing Skin: no rashes, warm and dry Neurologic: moves all extremities and awake; no focal motor deficits Psychiatric: A+Ox3, euthymic affect Orientation: alert and oriented x 3 Results & Data Laboratory Results Labs reviewed, creatinine 0.99, sodium 132, magnesium 1.7 (1) Respiratory failure with hypoxia Chronicity: acute Qualified Code(s): J96.01 - Acute respiratory failure with hypoxia (2) Diabetes Diabetes mellitus complication detail: with polyneuropathy Diabetes mellitus complication status: with neurologic complications Diabetes mellitus long-term insulin use: without long-term use Diabetes mellitus type: type 2 Qualified Code(s): E11.42 - Type 2 diabetes mellitus with diabetic polyneuropathy (3) HLD (hyperlipidemia) Hyperlipidemia type: unspecified Qualified Code(s): E78.5 - Hyperlipidemia, unspecified (4) Syncope Syncope type: unspecified Qualified Code(s): R55 - Syncope and collapse (5) HTN (hypertension) Hypertension type: essential hypertension Qualified Code(s): I10 - Essential (primary) hypertension
[2018-06-20] MEDS: DOCUSATE SODIUM 100 MG CAP PO SCH ×2 (17:55→20:35)
[2018-06-20] MEDS ORDERED: ZOLPIDEM TARTRATE 5 MG TAB PO PRN (21:00)
[2018-06-21] MEDS: ACETAMINOPHEN 325 MG TAB PO PRN (01:29)
[2018-06-21 06:26] LABS: BUN Creatinine Ratio 21.7 (10-20); Creatinine Clr Calc Pharmacy 79.5 ml/min; Est GFR (African American) 90.3; Est GFR (Non-African American) 77.9; Potassium 3.4 mmol/L (3.5-5.1)
[2018-06-21 06:27] LABS: Calcium 8.4 mg/dl (8.5-10.1); Magnesium 2.2 mg/dl (1.8-2.4)
[2018-06-21] MEDS ORDERED: POTASSIUM CHLORIDE 20 MEQ TABCR PO STA (08:06)
[2018-06-21] MEDS: CLOPIDOGREL BISULFATE 75 MG TAB PO SCH (08:09)
[2018-06-21] MEDS: ENOXAPARIN INJ 40 MG/0.4 ML SYR SQ SCH (08:09)
[2018-06-21] MEDS: IRBESARTAN 150 MG TAB PO SCH (08:09)
[2018-06-21] MEDS: CARVEDILOL 3.125 MG TAB PO SCH (08:09)
[2018-06-21] MEDS: FUROSEMIDE 40 MG in SYRINGE 1 ML IV SCH ×2 (08:09→16:46)
[2018-06-21] MEDS: PANTOprazole 40 MG TAB PO SCH (08:09)
[2018-06-21] MEDS: NORTRIPTYLINE HCL 25 MG CAP PO SCH (08:09)
[2018-06-21] MEDS: DOCUSATE SODIUM 100 MG CAP PO SCH ×2 (08:09→19:51)
[2018-06-21] MEDS: ROSUVASTATIN CALCIUM 20 MG TAB PO SCH (08:09)
[2018-06-21] MEDS: INSULIN GLARGINE SOLOSTAR 100 UNITS/ML 3 ML PEN SC SCH ×2 (08:10→20:32)
[2018-06-21] MEDS: INSULIN ASPART 100 UNITS/ML 3 ML PEN SC SCH ×4 (08:11→20:34)
--- NOTE | 2018-06-21 10:25 | Cardiology Progress Note ---
Date of Service June 21, 2018 Assessment & Plan (1) Acute systolic CHF (congestive heart failure): He continues to be fluid overloaded although he has diuresed quite a bit. Weight has been gradually dropping. Agree with continued diuresis. (2) Cardiomyopathy: He is under evaluation for his cardiomyopathy, catheterization is pending for Friday. He remains agreeable. The catheterization will depend on the next steps (intervention, bypass surgery, versus medical therapy). In his case causes of cardiomyopathy includes coronary artery disease as well as left bundle branch block and frequent ventricular ectopy. Future considerations include control of his ventricular ectopy, as well as possible biventricular pacing. Pending his catheterization I am leaning toward rhythm control and medical therapy possibly with a LifeVest rather than an ICD, although if he needs coronary intervention that may alter our approach. (3) Chest pain: He has had no further chest discomfort. (4) Syncope: He has had no further lightheadedness or dizziness during the hospitalization. His outpatient syncopal event is concerning. Given his severe left ventricular dysfunction and nonsustained ventricular tachycardia on telemetry I do not think he should go home without some protection from ventricular arrhythmias. Considerations are for a LifeVest or an implanted dev ice. We will need to wait for the results of the catheterization before making a final decision. (5) Ventricular arrhythmia: He has very frequent premature ventricular beats as well as brief runs of nonsustained ventricular tachycardia. Frequent premature ventricular beats can be a cause of a cardiomyopathy, I cannot tell on telemetry how many he has but just scanning through his record it does seem to be approaching 10% or more. That is generally the cut off for we get concerned that it may be affecting cardiac function. I think it is probably reasonable to treat them, with or without a LifeVest or an ICD. I am going to start him on amiodarone orally, that probably will not make much difference in his ectopy over the short-term but over the long run I think would be a good idea to suppress the ectopy as one more because of his cardiomyopathy. (6) LBBB (left bundle branch block): He has a left bundle branch block this admission, this is new since his last electrocardiogram here in 2008. I reviewed prior electrocardiograms and he did not have a left bundle branch block preceding that either. This could contribute to his cardiomyopathy or may be secondary to it. This raises the possibility of biventricular pacing to help with his cardiomyopathy. Subjective He is very sleepy today but has no other symptoms. No chest discomfort, he is lying supine in bed and not short of breath. Physical Exam Vital Signs (Past 24 Hours): Last Vital Signs Temp 36.5 C 06/21/18 07:23 Pulse 92 H 06/21/18 07:23 Resp 19 06/21/18 07:23 BP 114/66 06/21/18 07:23 Pulse Ox 96 06/21/18 07:23 Physical Exam: Constitutional: Alert, cooperative and in no distress. Pulmonary: Decreased breath sounds on auscultation bilaterally, prolonged expiration. Cardiac: Regular rhythm with no murmur, gallop or rub. Abdomen: Soft, nontender with normal bowel sounds. Extremities: +2 bilateral pretibial edema. Skin: No rash, ecchymoses or petechiae. Results & Data Diagnostic Findings Telemetry: Sinus rhythm with an IVCD, frequent PVCs, up to 3 beats of nonsustained ventricular tachycardia. Heart rate around 100 bpm. (1) Syncope Syncope type: unspecified Qualified Code(s): R55 - Syncope and collapse
--- NOTE | 2018-06-21 10:38 | Hospitalist Progress Note ---
Date of Service June 21, 2018 Assessment & Plan (1) Respiratory failure with hypoxia: Patient presented with 3 days of progressive dyspnea and orthopnea. With edema and weight gain. Chest imaging with suggestion of pulmonary edema. Secondary to new onset acute systolic and diastolic CHF. Per review of records patient with mild chronic systolic CHF and possibly CAD - stress echo in 2007 mentions resting echo with evidence of prior inferoposterior OH and mild LV dysfunction with EF of 45%. segmental abnormalities reflective of probable underlying ischemic heart disease with hypokinetic posterior wall and inferior wall. Pro-calcitonin is negative-checked in the setting of productive cough and mild leukocytosis which is now resolved without antibiotics Remains on oxygen but is weaned -Continue diuresis -Strict I/O's, daily weights -Supplemental O2 to keep pulse ox greater than 90% (2) Acute combined systolic (congestive) and diastolic (congestive) heart failure: With progressive dyspnea, orthopnea, weight gain and edema. Chest x-ray with pleural effusions and pulmonary edema Echocardiogram here with severely reduced LVEF of 20%, wall motion abnormalities, mild/moderate mitral regurgitation, grade 2 diastolic dysfunction Could be ischemic in nature vs due to frequent ectopy documented as far back as dobutamine stress in 2007 with frequent ectopy, trigeminy with new LBBB on ECG - diuresed well initially, but now positive in last 24 hrs although RN reports he voided in the toilet a few times last night despite being told not to -give an extra Lasix 40mg IV now for total of 80mg this AM, then continue 40 IV bid after that -Follow BMP and replace potassium to keep > 4.0 -Discontinued diltiazem and started carvedilol--> increase to 6.25 mg p.o. twice daily now -Appreciate cardiology consultation -Plan for cardiac catheterization on Friday -he is able to lie flat now -Strict I's and O's, daily weights, low-sodium diet -Cardio added Plavix 75mg po qAM due to presumed CAD -may need a LifeVest upon discharge (3) Syncope: Patient with syncopal event upon arrival to ER. Head trauma, CT head negative. Neurologically intact. -May have been secondary to ventricular tachycardia versus hypoxia -Echocardiogram with results as above -Following on telemetry (4) Diabetes: NsL6C=1.6 on 05/08/18. Patient reports being compliant with glipizide. Blood sugar continues to be elevated -Hold Glipizide -Increased Lantus to 13 units BID-will see how this helps today -tightened sliding scale insulin -ADA/low Na diet as tolerated -Continue Nortriptyline for neuropathy -Consider metformin upon discharge -Appreciate diabetic nurse educator consultation (5) Chronic GERD: Chronic. Stable -Continue Omeprazole daily (6) HLD (hyperlipidemia): Chronic -Continue Crestor 20 (7) HTN (hypertension): Blood pressure well controlled at present -Discontinued home diltiazem and started carvedilol as above -Continue Irbesartan but discontinued hydrochlorthiazide as is on Lasix now and will likely remain on that -Diuresis as above -Continue to monitor (8) Mitral regurgitation: Moderate on echocardiogram -Can be followed as an outpatient (9) Cardiomyopathy: Ischemic cardiomyopathy most likely with wall motion abnormalities as above (10) Nonsustained ventricular tachycardia: With short runs of nonsustained ventricular tachycardia up to 6 beats initially and now improved, still having frequent ectopy and 2-3 beats VT -Continue to replace potassium, magnesium as needed - follow BMP in the morning -Follow on telemetry -In the setting of low EF, this is concerning and may have caused his syncope as above -He may need a LifeVest upon discharge -Cardio considering adding on amiodarone (11) Hypokalemia: Secondary to loop diuretic use -Replace potassium -Follow BMP in the morning (12) Hyponatremia: Sodium low but stable at 130 likely secondary to volume overload -increased lasix dose this AM as above -Follow BMP in the morning -Continue diuresis (13) Hypomagnesemia: resolved after replacement Following the morning (14) Unilateral congenital absence of kidney: Noted that he has congenital absence of the right kidney -follow renal function (15) LBBB (left bundle branch block): New from previous, undergoing cardiac catheterization on Friday to look for ischemic disease could be related to frequent ectopy? (16) DVT prophylaxis: Lovenox Disposition-remain on PCU Subjective Pt tired and says he hasn't slept in 4 days, but did get a few hours of sleep last night. Complains that he keeps getting served potatoes and noodles despite being on a ADA diet Had a little "pinch" of pain in his chest last night that he says went away with tylenol Denies SOB and is lying flat now Discussed case with Cardiology Tele with NSR, , rates in 90s, a few PVC runs 2-3 beats at most Review of Systems All systems reviewed & are unremarkable except as noted in HPI & below Physical Exam Vital Signs (Past 24 Hours): Last Vital Signs Temp 36.5 C 06/21/18 07:23 Pulse 92 H 06/21/18 07:23 Resp 19 06/21/18 07:23 BP 114/66 06/21/18 07:23 Pulse Ox 96 06/21/18 07:23 Constitutional: WD/WN, vitals as above + morbidly obese Neck: trachea midline, no thyromegaly Respiratory: normal respiratory effort Auscultation: + diminished lung sounds (Bibasilar); no crackles and no wheezes Cardiovascular: Rate/Rhythm: regular rate and regular rhythm Heart Sounds: no murmur Extremities: + edema (+ pitting edema of the lower extremities bilaterally to the knees) Gastrointestinal (Abdomen): normal bowel sounds, soft, nontender, no hepatosplenomegaly Musculoskeletal: Extremities: extremities normal to inspection; no cyanosis and no clubbing Skin: no rashes, warm and dry Neurologic: moves all extremities and awake; no focal motor deficits Psychiatric: A+Ox3, euthymic affect Results & Data Laboratory Results 06/21/18 06/21/18 06/20/18 Range/Units 07:21 05:46 19:53 Sodium 130 L (136-145) mmol/L Potassium 3.4 L (3.5-5.1) mmol/L Chloride 93 L (98-107) mmol/L Carbon Dioxide 30 (21-32) mmol/L Anion Gap 7.0 (3-11) BUN 20 H (7-18) mg/dl Creatinine 0.94 (0.6-1.4) mg/dl Est Cr Clr Drug Dosing 79.5 ml/min Est GFR ( Amer) 90.3 Est GFR (Non-Af Amer) 77.9 BUN/Creatinine Ratio 21.7 H (10-20) Glucose 182 H (70-99) mg/dl POC Glucose 164 H 207 H (70-99) Calcium 8.4 L (8.5-10.1) mg/dl Magnesium 2.2 (1.8-2.4) mg/dl 04/13/19 04/13/19 Range/Units 16:10 11:38 Sodium (136-145) mmol/L Potassium (3.5-5.1) mmol/L Chloride (98-107) mmol/L Carbon Dioxide (21-32) mmol/L Anion Gap (3-11) BUN (7-18) mg/dl Creatinine (0.6-1.4) mg/dl Est Cr Clr Drug Dosing ml/min Est GFR ( Amer) Est GFR (Non-Af Amer) BUN/Creatinine Ratio (10-20) Glucose (70-99) mg/dl POC Glucose 150 H 247 H (70-99) Calcium (8.5-10.1) mg/dl Magnesium (1.8-2.4) mg/dl (1) Respiratory failure with hypoxia Chronicity: acute Qualified Code(s): J96.01 - Acute respiratory failure with hypoxia (2) Syncope Syncope type: unspecified Qualified Code(s): R55 - Syncope and collapse (3) Diabetes Diabetes mellitus type: type 2 Diabetes mellitus long term care pharmacist insulin use: without long term care pharmacist use Diabetes mellitus complication status: with neurologic complications Diabetes mellitus complication detail: with polyneuropathy Qualified Code(s): E11.42 - Type 2 diabetes mellitus with diabetic polyneuropathy (4) HLD (hyperlipidemia) Hyperlipidemia type: unspecified Qualified Code(s): E78.5 - Hyperlipidemia, unspecified (5) HTN (hypertension) Hypertension type: essential hypertension Qualified Code(s): I10 - Essential (primary) hypertension
[2018-06-21] MEDS ORDERED: FUROSEMIDE 40 MG/4 ML VIAL IV STA (10:43)
[2018-06-21] MEDS ORDERED: CARVEDILOL 3.125 MG TAB PO ONE (11:00)
[2018-06-21] MEDS: CARVEDILOL 6.25 MG TAB PO SCH (19:51)
[2018-06-21] MEDS: POTASSIUM CHLORIDE 20 MEQ TABCR PO SCH (19:51)
[2018-06-22 06:32] LABS: Hemoglobin 14.8 g/dL (14.0-18.0); Mean Corpuscular Hgb Conc 34.4 g/dL (32-36); Mean Corpuscular Volume 98.2 fL (80-100); Platelet Count 269 K/uL (130-400); RDW Standard Deviation 49.7 fL (36.4-46.3); Red Blood Count 4.38 M/uL (4.7-6.1); White Blood Count 7.65 K/uL (4.8-10.8)
[2018-06-22 06:53] LABS: Calcium 8.9 mg/dl (8.5-10.1); Creatinine Clr Calc Pharmacy 69.1 ml/min; Est GFR (African American) 76.3; Est GFR (Non-African American) 65.9; Magnesium 2.1 mg/dl (1.8-2.4); Potassium 4.2 mmol/L (3.5-5.1)
[2018-06-22] MEDS: CLOPIDOGREL BISULFATE 75 MG TAB PO SCH (06:59)
--- NOTE | 2018-06-22 07:24 | Pre Anesthesia Assessment ---
Date of Service June 22, 2018 Pre Sedation Assessment Vital Signs Temp Pulse Pulse Resp BP Pulse Ox 06/22/18 03:41 37.1 C 104 H 18 131/71 96 06/21/18 23:53 36.8 C 100 H 97 H 99/68 L 97 06/21/18 22:58 96 H 06/21/18 19:49 36.5 C 103 H 18 107/77 95 06/21/18 16:37 98 H 06/21/18 15:33 36.6 C 95 H 21 110/72 98 06/21/18 12:01 36.7 C 95 H 17 110/72 95 Cardiovascular + regular rate Respiratory + wheezes (very mild, occasional wheeze) Pre-Sedation Airway Assessment Mallampati Class: II ASA: ASA3 NPO Status Date of Last Intake of Fluids: 06/21/18 Time of Last Intake of Fluids: 19:00 Date of Last Intake of Solid Food: 06/21/18 Time of Last Intake of Solid Foods: 19:00 Procedure Planning Contraindications for Sedation: none Current Medications Reviewed: Yes Notes The planned sedation has been discussed with the patient. Informed Consent was obtained. I have identified the patient, determined the appropriateness of sedation and have assessed the patient immediately prior to the procedure. All medicine(s) and interventions are by my order.
[2018-06-22] MEDS ORDERED: NiCARDipine HCL INJ 2.5 MG/ML 10 ML AMP ONE (07:27)
[2018-06-22] MEDS ORDERED: HEPARIN (PORCINE) 1000 UNIT/ML 10 ML (CATH LAB USE ONLY) ONE (07:27)
[2018-06-22] MEDS ORDERED: fentaNYL citrate 100 MCG/2 ML VIAL ONE (07:27)
[2018-06-22] MEDS ORDERED: MIDAZOLAM HCL 1 MG/ML 2ML VIAL ONE (07:27)
[2018-06-22] MEDS ORDERED: NITROGLYCERIN/D5W 100MCG/ML 20ML SYR ONE (07:28)
[2018-06-22] MEDS: INSULIN ASPART 100 UNITS/ML 3 ML PEN SC SCH (08:01)
[2018-06-22] MEDS: DOCUSATE SODIUM 100 MG CAP PO SCH (08:01)
--- NOTE | 2018-06-22 08:28 | Post Operative Brief Note ---
Cardiology Brief Post Op Date of Surgery June 22, 2018 Pre & Post Diagnosis Pre Dx: 1. Acute systolic CHF and cardiomyopathy 2. Syncope Post Dx: 1. Severe multivessel 2. Elevated left sided filling pressure Operation Date: 06/22/18 07:30 <No data on this case meets the specified criteria> Procedure Right and left heart cath with coronary angiography Electronics Mechanic Shade Good MD Features Reporter Hanna Steele Estimated Blood Loss 25 Findings See Below Severe Multivessel CAD with occluded RCA, occluded circumflex, severe LMCA disease. See cath report for full details. This is prelim report. Elevated left sided filling pressures. Complications none Disposition Disposition: PCU
[2018-06-22 08:35] LABS: iSTAT Arterial Blood Gas HCO3 28 meg/L (19-24); iSTAT Arterial Blood Gas pCO2 46 mmHg (35-46); iSTAT Arterial Blood Gas pH 7.38 (7.35-7.45); iSTAT Carbon Dioxide 29 mEq/l (24-31)
[2018-06-22 08:35] LABS: iSTAT Arterial Blood Gas HCO3 29 meg/L (19-24); iSTAT Arterial Blood Gas pCO2 50 mmHg (35-46); iSTAT Arterial Blood Gas pH 7.38 (7.35-7.45); iSTAT Carbon Dioxide 31 mEq/l (24-31)
[2018-06-22 08:35] LABS: iSTAT Arterial Blood Gas HCO3 27 meg/L (19-24); iSTAT Arterial Blood Gas pCO2 47 mmHg (35-46); iSTAT Arterial Blood Gas pH 7.36 (7.35-7.45); iSTAT Carbon Dioxide 28 mEq/l (24-31)
--- NOTE | 2018-06-22 08:46 | Cardiac Catheterization ---
Cardiac Cath Procedure Full Procedure Date June 22, 2018 Pre-Procedure Diagnosis Pre-Procedure Diagnosis: Angina, CHF and Cardiomyopathy AUC Score AUC Score: 7 Post-Procedure Diagnosis Post-Procedure Diagnosis: Severe CAD and Elevated Intracardiac Pressures Procedure(s) Performed Procedure(s) Performed: Coronary Angiography, Left Heart Cath, Right Heart Cath and Ultrasound Guided Vascular Access Hand Paint Mixer Shade Good MD Liquid Flavor Compounder(s) Hanna Steele Estimated Blood Loss Estimated Blood Loss: < 30 ml Medication(s) Medication(s): Fentanyl, Heparin, Lidocaine 1%, Nicardipine and Versed Summary of Findings Coronary angiography: 1. Left main coronary artery: The LMCA is a large caliber vessel. Ostial LM CA 60%. Distal LM CA 70% stenosis with large calcium burden, involving the ostial LAD. 2. Left anterior descending: The LAD is a large caliber vessel that wraps around the apex. Ostial LAD involved with distal LM CA heavy calcification. Early mid LAD 70%. MAINE 3 flow. Large caliber D1 with proximal 60% stenosis. 3. Circumflex: Ostial 100%. Large OM fills via nuqp-[id number] collaterals. 4. Right coronary artery: The RCA is large and dominant. Proximal RCA 100%. There are right to right bridging collaterals and also [id number]-br-owkwq collaterals. Left heart catheterization: 1. Left ventriculography was not performed. 2. No significant aortic stenosis. Peak to peak gradient across the aortic valve was less than 5mmHg. 3. Elevated LVEDP; 25mmHg. Right heart catheterization: 1. Pulmonary capillary wedge pressure was elevated. V-wave 35 with a mean of 27mmHg. 2. Elevated pulmonary hypertension. PA pressure 47/30 with a mean of 36mmHg. Pulmonary hypertension likely secondary to left heart failure. 3. RV pressure 48/8 with RV EDP of 10mmHg. 4. Right atrial pressure A-wave 8, V-wave 18, mean of 8mmHg. 5. Cardiac output via thermodilution was 5.3 L/min with cardiac index of 2.4 L/min/m2. 6. PVR 1.7 Wood units. Ultrasound guidance: 1. Ultrasound guidance was utilized for venous access within the right brachiocephalic vein for right heart catheterization. Sedation start time: 7:36 a.m. Sedation end time: 8:17 a.m. Impression: 1. Severe multivessel CAD with occluded RCA, occluded circumflex, and severe LMCA/LAD disease. 2. Elevated left sided filling pressures. Plan: 1. Referral to CT surgery Center for evaluation of multivessel CABG. 2. Continue to diurese and optimize medical therapy. Hemodynamics Rest Ao:: 102/58 Final Ao: 105/61 LV: 103/11/25 Recommendations Recommendations: CABG Specimens Specimens: None Radiation Exposure (mGy) 1567 mGy. Fluoro time 7.8 min. Contrast (mls) 50 ml Procedural Complication(s) None Disposition PCU ACC Data: Guidance And Control System Engineer Cardiac Status Clinical evaluation leading to the procedure CAD Presenation: Unstable angina Anginal Classification: CCS III Heart Failure: NYHA Class: CCS IV Cardiogenic Shock within 24 Hours: No Cardiac Arrest within 24 Hours: No Imaging Studies Past 6 Months: Yes Stress Studies Past 6 Months: No Standard Exercise Test: No Stress Echocardiogram: No Stress Testing w/SPECT MPI: No Cardiac CTA: No Coronary Anatomy Dominant: Right Left Main (% Stenosis): Ostial (60%) and Distal (70%) LAD (% Stenosis): Mid (70%) D1 (% Stenosis): Proximal (60%) Circumflex (% Stenosis): Ostial (100%) RCA (% Stenosis): Proximal (100%) Left Ventricular Angiography EF (%): n/a Diagnostic Physicians Name: Shade Good MD Status: Elective Closure Device Percutaneous Entry Location: Radial Closure Device: Radial Band Recommendations: CABG
[2018-06-22] MEDS ORDERED: FUROSEMIDE IV SCH (09:00)
[2018-06-22] MEDS: PANTOprazole 40 MG TAB PO SCH (09:04)
[2018-06-22] MEDS: NORTRIPTYLINE HCL 25 MG CAP PO SCH (09:04)
[2018-06-22] MEDS: IRBESARTAN 150 MG TAB PO SCH (09:06)
[2018-06-22] MEDS: ROSUVASTATIN CALCIUM 20 MG TAB PO SCH (09:07)
[2018-06-22] MEDS: POTASSIUM CHLORIDE 20 MEQ TABCR PO SCH (09:08)
[2018-06-22] MEDS: CARVEDILOL 6.25 MG TAB PO SCH (09:09)
--- NOTE | 2018-06-22 09:47 | Cardiology Progress Note ---
Date of Service June 22, 2018 Assessment & Plan (1) CAD (coronary artery disease): severe multivessel CAD present on cardiac catheterization. He is on Plavix due to aspirin allergy. Recommend revascularization with CABG. CT surgery was contacted at [facility] and he has been accepted by Dr. Wild of CT surgery. If recurrent pain, recommend heparin drip. Continue beta-lobito and high-intensity statin therapy. Continue ARB. (2) Acute systolic CHF (congestive heart failure): Left-sided filling pressures remain elevated. Continue diuresis. Unfortunately I&Os are not accurate as he has not been collecting his urine. His weight has decreased and symptomatically he has improved. Continue current diuresis. Fluid restriction. Low-sodium diet. He was reminded to collect his urine. Daily weights. (3) Chest pain: Likely angina. For recurrent symptoms, start heparin drip. Continue Plavix for now. Continue beta-lobito and titrate as appropriate. (4) Cardiomyopathy: Ischemic cardiomyopathy. Recommend revascularization. He has been placed on carvedilol and dose has been increased. Can further titrate in the future as well. Tachycardia likely secondary to reduced LV systolic function. Continue ARB and would consider Entresto in its place prior to discharge. Hopefully LV systolic function improved with revascularization. He initially declined ICD. Hopefully LV systolic function improved with revascularization. Otherwise, would revisit. Consider life vest on discharge as his syncopal event on presentation is concerning for VT given LV systolic dysfunction and ischemic heart disease. (5) Nonsustained ventricular tachycardia: Reported nonsustained ventricular tachycardia over the weekend. Revascularization recommended as above. Continue beta-lobito. (6) Syncope: Concerning that syncopal event was secondary to VT given reduced LV systolic function and multivessel CAD. Consider life vest. Revascularization recommended as above. If no improvement over time of LV function, ICD If agreeable however he has declined initially. Disposition: He was agreeable for transfer to CT surgery Center at [facility]. Dr. Bellamy, primary hospitalist, was notified of cardiac catheterization findings and acceptance by Dr. Wild. We will be happy to follow with him when he is discharged from [facility]. Subjective Breathing has improved over the weekend. He did have an episode of chest discomfort overnight that was short-lived. He underwent cardiac catheterization earlier today demonstrating severe multivessel CAD including LM CA, LAD, as well as occluded circumflex and occluded RCA. left-sided filling pressures remain elevated. He has not had any further syncope and denies palpitations. Review of systems: As above. Physical Exam Vital Signs (Past 24 Hours): Last Vital Signs Temp 37.1 C 06/22/18 03:41 Pulse 104 H 06/22/18 08:17 Resp 14 06/22/18 08:17 BP 124/75 06/22/18 08:17 Pulse Ox 93 06/22/18 08:17 Intake & Output 06/20/18 06/21/18 06/22/18 06/23/18 06:59 06:59 06:59 06:59 Intake Total 1225 / 1225 1735 / 1735 1470 / 1470 Output Total 2400 / 2400 651 / 651 2 / 2 Balance -1175 / -1175 1084 / 1084 1468 / 1468 Weight 117.7 kg 110.8 kg 110.6 kg Physical Exam: Gen.: No acute distress. Alert and oriented. HEENT: Anicteric sclera. Neck: Mild JVD. Cardiac: Regular but mildly tachycardic. Normal S1-S2. No murmurs, rubs, or gallops. Pulmonary: occasional bilateral wheeze, otherwise clear. Abdomen: Soft, nontender, nondistended, with normoactive bowel sounds. No bruits noted. Extremities: 1+ bilateral lower extremity edema. No cyanosis. right radial cath site with TR band in place. No hematoma. Psychiatric: Affect appears appropriate. Results & Data Laboratory Results Laboratory Results - last 24 hr 06/21/18 06/21/18 06/21/18 11:36 16:22 20:15 WBC RBC Hgb Hct MCV MCH MCHC RDW Std Deviation RDW Coeff of [place] Plt Count MPV POC pH POC pCO2 POC pO2 POC HCO3 POC Total CO2 POC Base Excess POC ABG O2 Sat Sodium Potassium Chloride Carbon Dioxide Anion Gap BUN Creatinine Est Cr Clr Drug Dosing Est GFR ( Amer) Est GFR (Non-Af Amer) BUN/Creatinine Ratio Glucose POC Glucose 222 H 146 H 161 H Calcium Magnesium 06/22/18 06/22/18 06/22/18 06:06 06:06 06:55 WBC 7.65 RBC 4.38 L Hgb 14.8 Hct 43.0 MCV 98.2 MCH 33.8 MCHC 34.4 RDW Std Deviation 49.7 H RDW Coeff of [place] 14.0 Plt Count 269 MPV 11.0 H POC pH 7.38 POC pCO2 46 POC pO2 55 L POC HCO3 28 H POC Total CO2 29 POC Base Excess 3.0 H POC ABG O2 Sat 87.0 L Sodium 132 L Potassium 4.2 D Chloride 97 L Carbon Dioxide 32 Anion Gap 3.0 BUN 19 H Creatinine 1.08 Est Cr Clr Drug Dosing 69.1 Est GFR ( Amer) 76.3 Est GFR (Non-Af Amer) 65.9 BUN/Creatinine Ratio 18.0 Glucose 109 H POC Glucose Calcium 8.9 Magnesium 2.1 06/22/18 06/22/18 06:58 07:02 WBC RBC Hgb Hct MCV MCH MCHC RDW Std Deviation RDW Coeff of [place] Plt Count MPV POC pH 7.36 7.38 POC pCO2 47 H 50 H POC pO2 37 L 36 L POC HCO3 27 H 29 H POC Total CO2 28 31 POC Base Excess 2.0 H 4.0 H POC ABG O2 Sat 67.0 L 67.0 L Sodium Potassium Chloride Carbon Dioxide Anion Gap BUN Creatinine Est Cr Clr Drug Dosing Est GFR ( Amer) Est GFR (Non-Af Amer) BUN/Creatinine Ratio Glucose POC Glucose Calcium Magnesium Diagnostic Findings Coronary angiography: 1. Left main coronary artery: The LMCA is a large caliber vessel. Ostial LM CA 60%. Distal LM CA 70% stenosis with large calcium burden, involving the ostial LAD. 2. Left anterior descending: The LAD is a large caliber vessel that wraps around the apex. Ostial LAD involved with distal LM CA heavy calcification. Early mid LAD 70%. MAINE 3 flow. Large caliber D1 with proximal 60% stenosis. 3. Circumflex: Ostial 100%. Large OM fills via [id number] collaterals. 4. Right coronary artery: The RCA is large and dominant. Proximal RCA 100%. There are right to right bridging collaterals and also irkg-lo-xdyec collaterals. Left heart catheterization: 1. Left ventriculography was not performed. 2. No significant aortic stenosis. Peak to peak gradient across the aortic valve was less than 5mmHg. 3. Elevated LVEDP; 25mmHg. Right heart catheterization: 1. Pulmonary capillary wedge pressure was elevated. V-wave 35 with a mean of 27mmHg. 2. Elevated pulmonary hypertension. PA pressure 47/30 with a mean of 36mmHg. Pulmonary hypertension likely secondary to left heart failure. 3. RV pressure 48/8 with RV EDP of 10mmHg. 4. Right atrial pressure A-wave 8, V-wave 18, mean of 8mmHg. 5. Cardiac output via thermodilution was 5.3 L/min with cardiac index of 2.4 L/min/m2. 6. PVR 1.7 Wood units. ECG personally reviewed: ECG 06/22/2018: Sinus tachycardia with PAC. 103 bpm. LBBB. Medications Administered Current Inpatient Medications Acetaminophen (Tylenol) 650 mg PO Q4H PRN PRN Reason: pain/fever Stop: 07/18/18 23:25 Last Admin: 06/21/18 01:29 Dose: 650 mg Documented by: Carvedilol (Coreg) 6.25 mg PO BID [facility] Stop: 07/21/18 20:59 Last Admin: 06/22/18 09:09 Dose: 6.25 mg Documented by: Clopidogrel Bisulfate (Plavix) 75 mg PO QAM [facility] Stop: 07/19/18 17:10 Last Admin: 06/22/18 06:59 Dose: 75 mg Documented by: Dextrose (Dextrose 50%) 25 - 50 ml IV UD PRN; Protocol PRN Reason: Hypoglycemia Protocol Stop: 07/18/18 23:25 Docusate Sodium (Colace) 100 mg PO BID [facility] Stop: 07/20/18 17:19 Last Admin: 06/22/18 08:01 Dose: Not Given Documented by: Enoxaparin Sodium (Lovenox) 40 mg SQ QAM [facility] Stop: 07/19/18 08:59 Last Admin: 06/21/18 08:09 Dose: 40 mg Documented by: Glucagon (Glucagen) 1 mg SQ UD PRN; Protocol PRN Reason: Hypoglycemia Protocol Stop: 07/18/18 23:25 Glucose (Dex4 Glucose) 4 - 8 tabs PO UD PRN; Protocol PRN Reason: Hypoglycemia Protocol Stop: 07/18/18 23:25 Glucose (Glucose 40%) 15 - 30 gm PO UD PRN; Protocol PRN Reason: Hypoglycemia Protocol Stop: 07/18/18 23:25 Furosemide 80 mg/ Syringe 9 mls @ 4 mls/min IV [id number] [facility] Stop: 07/22/18 08:59 Insulin Aspart (Novolog Flexpen) 0 units SC ACHS HERBIE Stop: 07/18/18 23:25 Last Admin: 06/22/18 08:01 Dose: Not Given Documented by: Insulin Glargine (Lantus Solostar Pen) 13 units SC BID HERBIE Stop: 07/21/18 08:59 Last Admin: 06/21/18 20:32 Dose: 13 units Documented by: Irbesartan (Avapro) 300 mg PO DAILY HERBIE Stop: 07/19/18 08:59 Last Admin: 06/22/18 09:06 Dose: 300 mg Documented by: Miscellaneous (Carbohydrates For Hypoglycemia) 15 - 30 gm PO UD PRN PRN Reason: Hypoglycemia Treatment Stop: 07/18/18 23:25 Nortriptyline HCl (Pamelor) 75 mg PO DAILY HERBIE Stop: 07/19/18 08:59 Last Admin: 06/22/18 09:04 Dose: 75 mg Documented by: Pantoprazole Sodium (Protonix) 40 mg PO DAILY HERBIE Stop: 07/19/18 08:59 Last Admin: 06/22/18 09:04 Dose: 40 mg Documented by: Potassium Chloride (Klor-Con M20) 40 meq PO BID HERBIE Stop: 07/21/18 20:59 Last Admin: 06/22/18 09:08 Dose: 40 meq Documented by: Rosuvastatin Calcium (Crestor) 20 mg PO DAILY HERBIE Stop: 07/19/18 08:59 Last Admin: 06/22/18 09:07 Dose: 20 mg Documented by: Zolpidem Tartrate (Ambien) 5 mg PO HS PRN PRN Reason: Sleep Stop: 07/20/18 20:59 (1) Syncope Syncope type: unspecified Qualified Code(s): R55 - Syncope and collapse
[2018-06-22] MEDS: INSULIN GLARGINE SOLOSTAR 100 UNITS/ML 3 ML PEN SC SCH (09:58)
[2018-06-22] MEDS: ENOXAPARIN INJ 40 MG/0.4 ML SYR SQ SCH (09:58)
[2018-06-22] MEDS ORDERED: Heparin IV Standard *NO* Bolus ONE (10:02)
--- NOTE | 2018-06-22 10:02 | Discharge Summary ---
Date of Service June 22, 2018 Admission HPI Per Admitting Provider Mr. Stephen is a 77yo male with history of HTN, HLP, DM and GERD. Patient had a brief episode of substernal chest discomfort 3 days ago associated with shortness of breath and a "gurgling" sound in his chest. Chest pain non- radiating, non-exertional and non-pleuritic. Resolved shortly after it began. SOB however has persisted and become progressively worse over the last three days. Patient unable to lay flat secondary to orthopnea. He denies edema but thinks he may have gained some weight - patient seen by Dr. Portillo on 06/08/18 - weight at that time 453#, today he is 258.9#. Patient hypoxic and tachypnic on arrival - HR of 105, RR of 30, saturating 89% on room air. He was placed on Oxymask 6L with improvement to 93%. He has cough productive for yellow sputum, states that this is his baseline since he quit smoking 13 years ago. Denies fevers/chills/nausea/vomiting. Denies CP/palpitations. Denies abdominal pain/nausea/vomiting/diarrhea Patient had a syncopal event as he was entering the hospital this evening. He states that he just blacked out. No prodrome. Denies CP/palpitations/numbness/weakness or incontinence before or after the event. ER Course: Lasix 40mg IV Principal Diagnosis Severe CAD, Acute combined systolic and diastolic CHF Discharge Exam Constitutional WD/WN, vitals as above + morbidly obese Eyes PERRL, conjunctivae normal, anicteric sclerae ENMT external ear and nose normal, oropharynx normal Neck trachea midline, no thyromegaly Respiratory normal respiratory effort Auscultation: + diminished lung sounds (Bibasilar); no crackles and no wheezes Cardiovascular Rate/Rhythm: regular rate and regular rhythm Heart Sounds: no murmur Extremities: + edema (1+ pitting edema of the lower extremities bilaterally to the knees) Gastrointestinal (Abdomen) normal bowel sounds, soft, nontender, no hepatosplenomegaly Musculoskeletal Extremities: extremities normal to inspection; no cyanosis and no clubbing Skin no rashes, warm and dry Neurologic moves all extremities and awake; no focal motor deficits Psychiatric A+Ox3, euthymic affect Discharge Data Allergies Allergy/AdvReac Type Severity Reaction Status Date / Time aspirin Allergy Mild RASH Verified 06/18/18 18:37 Consultations Cardiology Procedures Performed Operation Date: 06/22/18 07:30 Actual Procedures p Cath, Right and Left Heart - Shade Good MD s Cineradiography w/Routine Exam - Shade Good MD s Ultrasound Vascular Access - Shade Good MD Ordered Studies 06/18/18 18:59 CT angio chest PE protocol Stat 06/18/18 20:35 CT head/brain wo con Stat 06/22/18 06:56 CL Cath Imgs for PACS use only Routine CXR ECHO Hospital Course (1) Respiratory failure with hypoxia: Patient presented with 3 days of progressive dyspnea and orthopnea. With edema and weight gain. Chest imaging with suggestion of pulmonary edema. Secondary to new onset acute systolic and diastolic CHF. Per review of records patient with mild chronic systolic CHF and possibly CAD - stress echo in 2007 mentions resting echo with evidence of prior inferoposterior MO and mild LV dysfunction with EF of 45%. segmental abnormalities reflective of probable underlying ischemic heart disease with hypokinetic posterior wall and inferior wall. Pro-calcitonin is negative-checked in the setting of productive cough and mild leukocytosis which is now resolved without antibiotics Remains on oxygen but is weaned down -Continue diuresis -Strict I/O's, daily weights -Supplemental O2 to keep pulse ox greater than 90% (2) Acute combined systolic (congestive) and diastolic (congestive) heart failure: With progressive dyspnea, orthopnea, weight gain and edema. Chest x-ray with pleural effusions and pulmonary edema Echocardiogram here with severely reduced LVEF of 20%, wall motion abnormalities, mild/moderate mitral regurgitation, grade 2 diastolic dysfunction Confirmed to be ischemic in nature on cardiac catheterization with severe, multivessel disease including left main and LAD, occluded RCA, Cx. Also some component could be due to frequent ectopy documented as far back as dobutamine stress in 2007 with frequent ectopy, trigeminy Here with new LBBB on ECG - diuresed well initially, but now volume even in last 36 hrs although RN reports he voided in the toilet a few times last night despite being told not to. He is improved clinically though and no longer has orthopnea -increase to Lasix 80mg IV bid -Follow BMP and replace potassium to keep > 4.0 -caution in settin gof unilateral kidney and aggressive diuresis but renal function has been excellent -Discontinued diltiazem and started carvedilol--> increased to 6.25 mg p.o. twice daily on 06/21 -Appreciate cardiology consultation -Strict I's and O's, daily weights, low-sodium diet -Cardio added Plavix 75mg po qAM due to CAD, he is allergic to ASA (3) CAD (coronary artery disease): Severe, multivessel, with cardiac cath with: Coronary angiography: 1. Left main coronary artery: The LMCA is a large caliber vessel. Ostial LM CA 60%. Distal LM CA 70% stenosis with large calcium burden, involving the ostial LAD. 2. Left anterior descending: The LAD is a large caliber vessel that wraps around the apex. Ostial LAD involved with distal LM CA heavy calcification. Early mid LAD 70%. MAINE 3 flow. Large caliber D1 with proximal 60% stenosis. 3. Circumflex: Ostial 100%. Large OM fills via [id number] collaterals. 4. Right coronary artery: The RCA is large and dominant. Proximal RCA 100%. There are right to right bridging collaterals and also [id number]-[id number] collaterals. Left heart catheterization: 1. Left ventriculography was not performed. 2. No significant aortic stenosis. Peak to peak gradient across the aortic valve was less than 5mmHg. 3. Elevated LVEDP; 25mmHg. Right heart catheterization: 1. Pulmonary capillary wedge pressure was elevated. V-wave 35 with a mean of 27mmHg. 2. Elevated pulmonary hypertension. PA pressure 47/30 with a mean of 36mmHg. Pulmonary hypertension likely secondary to left heart failure. 3. RV pressure 48/8 with RV EDP of 10mmHg. 4. Right atrial pressure A-wave 8, V-wave 18, mean of 8mmHg. 5. Cardiac output via thermodilution was 5.3 L/min with cardiac index of 2.4 L/min/m2. 6. PVR 1.7 Wood units. Ultrasound guidance: 1. Ultrasound guidance was utilized for venous access within the right brachiocephalic vein for right heart catheterization. Sedation start time: 7:36 a.m. Sedation end time: 8:17 a.m. Impression: 1. Severe multivessel CAD with occluded RCA, occluded circumflex, and severe LMCA/LAD disease. 2. Elevated left sided filling pressures. -continue Plavix, is allergic to ASA, continue high intensity statin Crestor 20, continue Coreg 6.25mg po bid -start heparin gtt as had intermittent chest pain prior to discharge -continue irbesartan -transfer to [facility] now for CABG evaluation (4) Syncope: Patient with syncopal event upon arrival to ER. Head trauma, CT head negative. Neurologically intact. -May have been secondary to ventricular tachycardia versus hypoxia -Echocardiogram with results as above -Following on telemetry -no further syncope since admission (5) Diabetes: YzV5G=5.6 on 05/08/18. Patient reports being compliant with glipizide. Blood sugars were elevated here and now improved with increased doses of insulin -Holding home Glipizide -continue Lantus 13 units BID -continue sliding scale insulin -ADA/low Na diet for today -Continue Nortriptyline for neuropathy -Consider metformin upon discharge -Appreciate diabetic nurse educator consultation (6) Chronic GERD: Chronic. Stable -dc omeprazole in favor of Protonix now that on Plavix (7) HLD (hyperlipidemia): Chronic -Continue Crestor 20 (8) HTN (hypertension): Blood pressure well controlled at present -Discontinued home diltiazem and started carvedilol as above -Continue Irbesartan but discontinued hydrochlorthiazide as is on Lasix now -Diuresis as above -Continue to monitor (9) Mitral regurgitation: Moderate on echocardiogram -Can be followed as an outpatient (10) Cardiomyopathy: Ischemic cardiomyopathy (11) Nonsustained ventricular tachycardia: With short runs of nonsustained ventricular tachycardia up to 6 beats initially and still having frequent ectopy and 2-3 beats VT -Continue to replace potassium, magnesium as needed - follow BMP -Follow on telemetry -In the setting of low EF, this is concerning and may have caused his syncope as above -now going for CABG -Cardio considered adding on amiodarone, but hold off for now as going for CABG (12) Hypokalemia: Secondary to loop diuretic use, now improved -Replace potassium with 40meq po bid -Follow BMP (13) Hyponatremia: Sodium low but improved today with diuresis to 132--> likely secondary to volume overload -Follow BMP in the morning -Continue diuresis (14) Hypomagnesemia: resolved after replacement Following the morning (15) Unilateral congenital absence of kidney: Noted that he has congenital absence of the right kidney -follow renal function (16) LBBB (left bundle branch block): New from previous, secondary to ischemic disease (17) DVT prophylaxis: Lovenox but now switching to heparin gtt Disposition-urgent transfer to [facility] for CABG mauro, accepting physician Dr. Wild Total Time Total Time Spent Total Time Spent (In Minutes): >30 min Total Time Includes: Examination of the Patient, Discharge Planning, Medication Reconciliation and Communication With Other Providers (Caridology) Discharge Plan Discharge Items Patient Disposition: Transfer Acute Care Hospital Reason For Visit: DYSPNEA,HYPOXIA Discharge Diagnosis: Severe CAD Acute systolic CHF Condition: Fair Discharge Goals: Decrease discomfort, Diagnostic testing, Improve disease control, Learn about illness and Therapeutic intervention Activity: As commented below Lifting: None Bathing: No limitations Exercise/Sports: Rest today Non-emergency contact: Primary Care Provider and Assistant Statistician Call non-emergency contact if: you have any medication questions, your symptoms worsen, your pain is not controlled, your pain is worsening, your pain is unusual for you and your pain is concerning for you Follow-up/Referrals: ProPavel MD [Primary Care Provider] - Diet: Carb Consistent or DM2 and Heart Healthy Fluids: 1500ml (6 cups) Addtl Provider Instructions: Transferred urgently to [facility] for CABG evaluation Prescriptions: New enoxaparin 40 mg/0.4 mL Syringe 40 mg subcut QAM Qty: 0.4 RF: 0 irbesartan 150 mg Tablet 300 mg PO DAILY Qty: 60 RF: 0 carvedilol 6.25 mg Tablet 6.25 mg PO BID Qty: 60 RF: 0 potassium chloride [Klor-Con M20] 20 mEq Tablet,Er Particles/Crystals 40 meq PO BID Qty: 60 RF: 0 docusate sodium 100 mg Capsule 100 mg PO BID Qty: 60 RF: 0 Novolog Flexpen U-100 Insulin 100 unit/mL (3 mL) Insulin Pen 1 units SC ACHS Qty: 15 RF: 0 Lantus Solostar U-100 Insulin 100 unit/mL (3 mL) Insulin Pen 13 unit SC BID Qty: 3 RF: 0 pantoprazole 40 mg Tablet,Delayed Release (Dr/Ec) 40 mg PO DAILY Qty: 30 RF: 0 Continued nortriptyline 75 mg capsule 75 mg PO DAILY RF: 0 rosuvastatin 20 mg tablet 20 mg PO DAILY RF: 0 Discontinued diltiazem HCl 240 mg capsule,extended release 24hr 240 mg PO BID RF: 0 glipizide 5 mg tablet extended release 24hr 5 mg PO BID RF: 0 irbesartan-hydrochlorothiazide 300-12.5 mg tablet 1 tab PO DAILY RF: 0 omeprazole 20 mg capsule,delayed release(DR/EC) 20 mg PO DAILY RF: 0 naproxen 500 mg tablet 500 mg PO DAILY RF: 0 Stand-Alone Forms: Call Back Authorization, [facility] Discharge Orders: Discharge Order (Routine); Ordered 06/22/18 Ordered By: Sunshine Bellamy Admission Data Admit Date/Time: 06/18/18 21:09 Attending Provider: Sunshine Bellamy Admit Provider: Pauline Castillo Primary Care Provider: Pavel Portillo Other Providers: Pauline Castillo ; Jarrett Mtz Service: Telemetry Other Pending Studies at Discharge: No
[2018-06-22] MEDS ORDERED: Heparin Adult STANDARD Wt-Based Dextrose 5% 25,000 units/500 mL IV SCH (10:30)
== END 2018-06-22 12:00 | disposition short-term general hospital (02) | DRG 286 ==
LOC: ED 18:14 → SUATTDRO 21:09 → 2W 21:09 → 2E 06-19 15:39

== ENCOUNTER 2018-07-15 15:53 | Observation (INO) ==
[2018-07-15] MEDS ORDERED: SODIUM CHLORIDE 0.9% 1000ML 500 ML IV ONE (17:20)
--- NOTE | 2018-07-15 17:53 | XRay Report ---
SINGLE VIEW CHEST CLINICAL HISTORY: Atypical chest pain. FINDINGS: An AP, portable, upright chest radiograph is compared to chest x-ray and chest CT dated 06/08. The examination is degraded by portable technique and patient rotation. The patient is status post midline sternotomy. The heart is enlarged and there is atherosclerotic calcification of the tho racic aorta. There is pulmonary vascular congestion and interstitial edema. There are layering pleura l effusions with bibasilar consolidation. No pneumothorax is seen. The skeletal structures are osteop enic. The bony thorax is grossly intact. Skin clips are noted in the right axillary region. IMPRESSION: 1. Cardiomegaly with evidence of congestive failure and interstitial edema. 2. There are layering pleural effusions with bibasilar consolidation. Electronically signed by: Keith Allen M.D. 07/15/2018 5:52 PM
[2018-07-15 18:00] LABS: Basophils # (auto) 0.02 K/uL (0-0.2); Basophils % (auto) 0.2 %; Eosinophils # (auto) 0.14 K/uL (0-0.5); Eosinophils % (auto) 1.7 %; Hematocrit (blood only) 32.3 % (42-52); Hemoglobin 10.2 g/dL (14.0-18.0); Immature Granulocytes # (auto) 0.02 K/uL (0.00-0.02); Immature Granulocytes % (auto) 0.2 %; Lymphocytes # (auto) 0.95 K/uL (1.2-3.4); Lymphocytes % (auto) 11.7 %; Mean Corpuscular Hgb Conc 31.6 g/dL (32-36); Mean Corpuscular Volume 97.9 fL (80-100); Monocytes # (auto) 0.79 K/uL (0.11-0.59); Monocytes % (auto) 9.8 %; Neutrophils # (auto) 6.17 K/uL (1.4-6.5); Neutrophils % (auto) 76.4 %; Platelet Count 265 K/uL (130-400); RDW Coefficient of Variation 17.1 % (11.5-14.5); RDW Standard Deviation 60.6 fL (36.4-46.3); White Blood Count 8.09 K/uL (4.8-10.8)
[2018-07-15 18:09] LABS: Prothrombin Time 10.5 Seconds (9.0-12.0)
[2018-07-15 18:17] LABS: Alanine Aminotransferase 31 U/L (12-78); Albumin Level 2.8 gm/dl (3.4-5.0); Aspartate Aminotransferase 18 U/L (15-37); BUN Creatinine Ratio 13.6 (10-20); Bilirubin Direct 0.2 mg/dl (0-0.2); Blood Urea Nitrogen 22 mg/dl (7-18); Carbon Dioxide 29 mmol/L (21-32); Chloride 100 mmol/L (98-107); Est GFR (African American) 46.1; Est GFR (Non-African American) 39.7; Glucose 130 mg/dl (70-99); Magnesium 2.3 mg/dl (1.8-2.4); Potassium 4.5 mmol/L (3.5-5.1); Sodium 134 mmol/L (136-145)
[2018-07-15 18:26] LABS: Albumin Globulin Ratio 0.7 (0.9-2); Alkaline Phosphatase 116 U/L (45-117); Bilirubin,Total 0.5 mg/dl (0.2-1); Globulin 4.3 gm/dl (2.5-4.0); NT Pro B Type Natriuretic Pept 5470 pg/ml (0-1800); Phosphorus 3.7 mg/dl (2.5-4.9); Total Protein 7.1 gm/dl (6.4-8.2); Troponin I 0.071 ng/ml (0-0.045)
--- NOTE | 2018-07-15 21:02 | History & Physical Report ---
Date of Service July 15, 2018 Assessment & Plan (1) Fatigue: 77-year-old male was admitted on 15 Jul 2018 for weakness. Of note, he was discharged from [facility] yesterday () following heart surgery. Fatigue, pulmonary edema: Per daughters, patient has had difficulty with any ambulation due to weakness since arrival back home. Did tolerate food this morning but is mostly been sleeping. Daughters say that he was doing "too good" for acute rehab per insurance and thus was discharged home. - On arrival, afebrile, vitals rather good with exception of SpO2 of 91% on room air. pCXR suggestive of congestive failure, interstitial edema, and pleural effusions. EKG is normal sinus rhythm, rate 81, first degree AV block and left BBB. - In ED, treated with 1 liter NS. - We will treat with a single dose of Lasix 40 mg IV x 1. Continue home Lasix. Check CK. Encourage IS use. Consult cardiology. CAD, cardiomyopathy: Limited medical records acutely available, but per discharge instructions patient underwent CABG x 3 vessels + mitral valve surgery (? replacement) + PFO closure + EDDIE clip on [id number] at [place]. Elevated creatinine: Admit Cr 1.64. BUN 22. Recent comparisons around 1.1. Congenital absence of the right kidney. Reportedly voided without difficulty earlier today. - Given IVF in ED. Recheck in AM. Elevated troponin: Admit TnI 0.071 at 1735. BNP 5470. Known CHF and recent heart surgery. - Recheck TnI around midnight tonight. Anemia: Admit Hb 10.2, normal MCV. No reports of bleeding in past 24 hours. - Recheck in AM. Ongoing medical issues: - Hypertension, hyperlipidemia, combined systolic and diastolic CHF: Pre-surgery echocardiogram on was EF 20-25%. Continue home amiodarone, Plavix, Lasix, metoprolol, nortriptyline, potassium, Crestor. - GERD: Was taken off of his omeprazole on last admission. - Diabetes, likely diabetic neuropathy: HbA1c 9.6 in May 2018. At home is on glipizide, Neurontin, nortriptyline. --- We will place on insulin sliding scale here. - Nonsustained V. tach, left bundle branch block. Code status: Full code. Diet: Heart healthy, diabetes. Added boost. DVT prophy: Lovenox. PT/OT: Ordered. Disbo: Admit to PCU telemetry. (2) Pulmonary edema: (3) CAD (coronary artery disease): (4) Cardiomyopathy: (5) S/P CABG x 3: (6) Elevated serum creatinine: (7) Elevated troponin: (8) Anemia: (9) HTN (hypertension): (10) HLD (hyperlipidemia): (11) Acute combined systolic (congestive) and diastolic (congestive) heart failure: (12) GERD (gastroesophageal reflux disease): (13) Diabetes mellitus: (14) Nonsustained ventricular tachycardia: (15) LBBB (left bundle branch block): History of Present Illness Primary Care Provider: Pavel Portillo MD 77-year-old male presents to the emergency department after being discharged from [facility] yesterday () following the below-described heart surgery. The patient presently is quite fatigued and is not contributing to his history. Per his two daughters at bedside, they were told that the patient was "doing too well" for him to qualify for inpatient rehab per apparent discussions with insurance. Daughter states that he has been very fatigued and generally weak since discharge. For example, he needs assistance just to walk to the bathroom. Apparently he did tolerate some [employer] breakfast this morning along with a V8 and coffee. However, he has not had any further p.o. intake since this morning. On asking the patient directly, he opens his eyes to voice but then closes them again. He nods his head "no" when asked if he is in any pain. He is presently responding to commands but appears quite fatigued. --- Past medical history includes CAD, cardiomyopathy, hypertension, hyperli pidemia, combined systolic and diastolic congestive heart failure, GERD, diabetes, likely diabetic neuropathy, nonsustained V. tach, left bundle branch block. --- Past surgical history includes CABG x 3 vessels + mitral valve surgery (? replacement) + PFO closure + EDDIE clip on 26Jun2018 at [place]. --- Social history includes quitting smoking about 12 years ago (with a 50-year prior history), no alcohol use, and normally lives at home alone. However, post surgery, is living with daughter. Allergies Allergy/AdvReac Type Severity Reaction Status Date / Time aspirin Allergy Mild RASH Verified 07/15/18 19:47 Home Medications Home Medications Medication Instructions Recorded Confirmed Type amiodarone [Pacerone] 200 mg PO DAILY 07/15/18 07/15/18 History clopidogrel [Plavix] 75 mg PO DAILY 07/15/18 07/15/18 History furosemide [Lasix] 40 mg PO DAILY 07/15/18 07/15/18 History gabapentin [Neurontin] 100 mg PO TID 07/15/18 07/15/18 History glipizide 2.5 mg PO DAILY 07/15/18 07/15/18 History glipizide [Glucotrol XL] 5 mg PO DAILY 07/15/18 07/15/18 History metoprolol tartrate 12.5 mg PO BID 07/15/18 07/15/18 History nortriptyline [Pamelor] 75 mg PO DAILY 07/15/18 07/15/18 History potassium chloride 10 meq PO BID 07/15/18 07/15/18 History rosuvastatin [Crestor] 20 mg PO HS 07/15/18 07/15/18 History Past Med/Surg History Medical History HLD (hyperlipidemia) HTN (hypertension) Chronic GERD Diabetes Surgical History Status post cardiac surgery S/P appendectomy Family History Other Family history non-contributory Social History Preferred Language: Ukrainian Communication Ability: Effective Toy Maker Required: No Beliefs That Will Affect Care: None Current Living Situation: Family Other Information That Helps Us Care for You: No Feels Safe at Home: Yes Safety Concerns: Feels Safe At This Time Smoking Status: Former smoker Cigarettes Per Day: 1ppd x 50 years. Started at age 5 Do You Dip or Chew Tobacco: No Hx Alcohol Use: No Hx Substance Use: No Review of Systems Review of Systems: Unable to obtain ROS due to patient's current somnolence. Physical Exam Physical Exam: GENERAL: Appears quite somnolent but is responding to commands. HENT: Normocephalic, atraumatic. Oropharynx appears very dry.. EYES: Normal conjunctiva. Sclera non-icteric. Pupils 3 mm and reactive bilaterally. NECK: Inspection normal. Patient is too fatigued to move his neck. CARDIAC: +S1S2 RRR, no murmurs. There is a well-healing midline sternal scar as well as slightly inferior thoracic scars. There is also a well-healing puncture-like wound consistent with a prior central line in the right IJ region. RESPIRATORY: Clear to auscultation. No wheezes or rales. Normal respiratory effort. GI: +BS, soft, non-distended. No wincing to palpation. No rebound or guarding. EXTREMITIES: 2-3+ pretibial edema. Will squeeze hands on command. NEURO: Limited exam due to his somnolence. Will open eyes with voice. Strong bilateral clipper operator squeeze and moves toes quickly on command. Lines: PIV. Results & Data Vital Signs (Past 12 Hours) Vital Signs Temp Pulse Pulse Resp BP BP Pulse Ox 07/15/18 20:16 84 16 112/63 07/15/18 20:01 80 16 101/57 L 07/15/18 20:00 81 16 07/15/18 19:46 80 15 92/50 L 93 07/15/18 19:31 77 16 92/52 L 92 07/15/18 19:16 80 17 96/53 L 92 07/15/18 19:01 80 17 97/53 L 92 07/15/18 19:00 80 16 92 07/15/18 18:46 80 16 103/57 L 92 07/15/18 18:40 80 81 114/65 92 07/15/18 18:31 84 18 114/65 07/15/18 18:29 83 16 115/65 07/15/18 18:00 80 18 07/15/18 17:02 80 88/46 L 07/15/18 17:00 81 07/15/18 16:47 80 22 07/15/18 15:55 36.7 C 86 18 127/64 95 Laboratory Results 07/15/18 07/15/18 07/15/18 Range/Units 17:35 17:35 17:35 WBC 8.09 (4.8-10.8) K/uL RBC 3.30 L (4.7-6.1) M/uL Hgb 10.2 L (14.0-18.0) g/dL Hct 32.3 L (42-52) % MCV 97.9 (80-100) fL MCH 30.9 (25-34) pg MCHC 31.6 L (32-36) g/dL RDW Std Deviation 60.6 H (36.4-46.3) fL RDW Coeff of [place] 17.1 H (11.5-14.5) % Plt Count 265 (130-400) K/uL MPV 10.0 (7.4-10.4) fL Immature Gran % (Auto) 0.2 % Neut % (Auto) 76.4 % Lymph % (Auto) 11.7 % Thomas % (Auto) 9.8 % Eos % (Auto) 1.7 % Baso % (Auto) 0.2 % Immature Gran # (Auto) 0.02 (0.00-0.02) K/uL Neut # (Auto) 6.17 (1.4-6.5) K/uL Lymph # (Auto) 0.95 L (1.2-3.4) K/uL Thomas # (Auto) 0.79 H (0.11-0.59) K/uL Eos # (Auto) 0.14 (0-0.5) K/uL Baso # (Auto) 0.02 (0-0.2) K/uL PT 10.5 (9.0-12.0) Seconds INR 1.0 (0.9-1.1) Sodium 134 L (136-145) mmol/L Potassium 4.5 (3.5-5.1) mmol/L Chloride 100 (98-107) mmol/L Carbon Dioxide 29 (21-32) mmol/L Anion Gap 5.0 (3-11) BUN 22 H (7-18) mg/dl Creatinine 1.64 H (0.6-1.4) mg/dl Est Cr Clr Drug Dosing Not Reportable Est GFR ( Amer) 46.1 Est GFR (Non-Af Amer) 39.7 BUN/Creatinine Ratio 13.6 (10-20) Glucose 130 H (70-99) mg/dl Calcium 9.0 (8.5-10.1) mg/dl Phosphorus 3.7 (2.5-4.9) mg/dl Magnesium 2.3 (1.8-2.4) mg/dl Total Bilirubin 0.5 (0.2-1) mg/dl Direct Bilirubin 0.2 (0-0.2) mg/dl AST 18 (15-37) U/L ALT 31 (12-78) U/L Alkaline Phosphatase 116 (45-117) U/L Troponin I 0.071 H* (0-0.045) ng/ml NT-Pro-B Natriuret Pep 5470 H (0-1800) pg/ml Total Protein 7.1 (6.4-8.2) gm/dl Albumin 2.8 L (3.4-5.0) gm/dl Globulin 4.3 H (2.5-4.0) gm/dl Albumin/Globulin Ratio 0.7 L (0.9-2) Lipase 112 (73-393) U/L Medications Administered Discontinued Medications Sodium Chloride (Nss 1000ml) 500 mls @ 999 mls/hr IV .Q31M ONE Stop: 07/15/18 17:50 Last Infusion: 07/15/18 19:19 Dose: 0 mls/hr Documented by: [id number] Admin: 07/15/18 18:31 Dose: 999 mls/hr Documented by: [id number] Code Status & VTE Plan Code Status Full code VTE Prophylaxis Plan VTE Prophylaxis will be ordered: Yes Supervising Physician Co-Signing Physician Notes Mr. Stephen is a 77yo male with multiple medical problems to include HTN, HLP, CHF, CAD, DM and GERD. Patient was admitted recently for acute exacerbation of CHF. He had a cath performed on 06/22/18 which revealed severe multivessel CAD. He was transferred to [facility] and had CABG x 2V, clsure of PFO, MVR, Clipping of EDDIE performed on . He was discharged home yesterday. Family notes he has been severely fatigued requiring assistance to perform ADLs since his arrival home. On exam he is afebrile, HD stable. NAD. Very fatigued, easily arousable with verbal stimuli, answers some questions then falls back asleep HEENT: no JVD Heart: sternotomy wound well approximated, no bleeding/drainage or dehiscence, stable sternum Lungs: diminished breath sounds in the bases Abd: +BS, soft, NT/ND Ext: 2+ pitting edema bilaterally Assessment/Plan: -Admit to PCU -Repeat troponin -Lasix 40mg IV x 1 then resume home PO dose -Cardiology consult - appreciate assistance -PT/OT evaluation -Remainder of plan as above Resident Activity Tracking Resident Involvement: Resident Care Provided Care Provided: Adult Hospital Medicine (1) HLD (hyperlipidemia) Hyperlipidemia type: unspecified Qualified Code(s): E78.5 - Hyperlipidemia, unspecified (2) HTN (hypertension) Hypertension type: essential hypertension Qualified Code(s): I10 - Essential (primary) hypertension
--- NOTE | 2018-07-15 21:25 | Emergency Department Note ---
Entered by Kaushal Merritt acting as a scribe for Lamont Jarrett MD History of Present Illness General Chief complaint: Hypotension Stated complaint: LOW BLOOD PRESSURE Time Seen by Provider: 07/15/18 16:45 Source: patient and family History of Present Illness Onset (ago): week(s) 2 Location: head (global) Pain Consistency: + constant Quality: + other (weakness) Exacerbated By: + other (triple bypass surgery two weeks ago) Associated symptoms: + other (dark urine); no fever/chills The patient is a 77 year old male who presents to the Emergency Room with complaints of constant weakness. His daughters at bedside report that the patient had a triple bypass surgery two weeks ago at [facility], and he was discharged yesterday. The plan was originally to take the patient to rehabilitation, but due to insurance reasons he was went home with the daughters. They state that the patient has been constantly weak and tired- appearing since his surgery two weeks ago, and he requires assistance getting out of bed and walking. They state that he has not been able to walk to the bathroom and instead uses a bedside commode. They are concerned that he cannot be managed at home alone, and his home health nurse is only there for a couple of hours per day. They note that this morning the nurse was concerned because his blood pressure was low, and they do not believe that the patients blood pressure was low while at [facility]. They state that the patients urine has been dark. They deny recent fevers. Home Medications Home Medications Medication Instructions Recorded Confirmed Type amiodarone [Pacerone] 200 mg PO DAILY 07/15/18 07/15/18 History clopidogrel [Plavix] 75 mg PO DAILY 07/15/18 07/15/18 History furosemide [Lasix] 40 mg PO DAILY 07/15/18 07/15/18 History gabapentin [Neurontin] 100 mg PO TID 07/15/18 07/15/18 History glipizide 2.5 mg PO DAILY 07/15/18 07/15/18 History glipizide [Glucotrol XL] 5 mg PO DAILY 07/15/18 07/15/18 History metoprolol tartrate 12.5 mg PO BID 07/15/18 07/15/18 History nortriptyline [Pamelor] 75 mg PO DAILY 07/15/18 07/15/18 History potassium chloride 10 meq PO BID 07/15/18 07/15/18 History rosuvastatin [Crestor] 20 mg PO HS 07/15/18 07/15/18 History Allergies Allergy/AdvReac Type Severity Reaction Status Date / Time aspirin Allergy Mild RASH Verified 07/15/18 19:47 Past Med/Surg History Medical History HLD (hyperlipidemia) HTN (hypertension) Chronic GERD Diabetes Surgical History Status post cardiac surgery S/P appendectomy Family History Other Family history non-contributory Social History Preferred Language: Greenlandic Communication Ability: Effective Flexible Nanny Required: No Beliefs That Will Affect Care: None Current Living Situation: Family Other Information That Helps Us Care for You: No Feels Safe at Home: Yes Safety Concerns: Feels Safe At This Time Smoking Status: Former smoker Cigarettes Per Day: 1ppd x 50 years. Started at age 5 Do You Dip or Chew Tobacco: No Hx Alcohol Use: No Hx Substance Use: No Review of Systems See HPI for pertinent positives & negatives. and A total of 10 systems reviewed and were otherwise negative Physical Exam Vital Signs Vital Signs - 24 hr 07/15/18 15:53 07/15/18 15:55 07/15/18 16:47 Temperature 36.7 C Temperature Source Oral Sepsis Recent Fever Within 48 Hours No Sepsis New/Unexplained Change in Mental Status No Sepsis Action Taken by Nursing No Action Required Pulse Rate 86 80 Pulse Rate [Apical] Pulse Rate from SpO2 Sensor Respiratory Rate 18 22 Respiratory Effort / Characteristics Non-Labored Respiratory Depth Normal Respiratory Pattern Blood Pressure 127/64 Blood Pressure [Right Arm] Blood Pressure Mean 85 Blood Pressure Mean [Right Arm] Blood Pressure Position Sitting Pulse Oximetry 95 Oxygen Delivery Method Room Air Room Air Oxygen Flow Rate 96 07/15/18 17:00 07/15/18 17:02 07/15/18 18:00 Temperature Temperature Source Sepsis Recent Fever Within 48 Hours Sepsis New/Unexplained Change in Mental Status Sepsis Action Taken by Nursing Pulse Rate 81 80 80 Pulse Rate [Apical] Pulse Rate from SpO2 Sensor Respiratory Rate 18 Respiratory Effort / Characteristics Respiratory Depth Respiratory Pattern Blood Pressure 88/46 L Blood Pressure [Right Arm] Blood Pressure Mean 60 Blood Pressure Mean [Right Arm] Blood Pressure Position Pulse Oximetry Oxygen Delivery Method Oxygen Flow Rate 07/15/18 18:29 07/15/18 18:31 07/15/18 18:40 Temperature Temperature Source Sepsis Recent Fever Within 48 Hours Sepsis New/Unexplained Change in Mental Status Sepsis Action Taken by Nursing Pulse Rate 83 84 80 Pulse Rate [Apical] 81 Pulse Rate from SpO2 Sensor Respiratory Rate 16 18 Respiratory Effort / Characteristics Respiratory Depth Respiratory Pattern Blood Pressure 115/65 114/65 Blood Pressure [Right Arm] 114/65 Blood Pressure Mean 81 81 Blood Pressure Mean [Right Arm] 81 Blood Pressure Position Pulse Oximetry 92 Oxygen Delivery Method Room Air Oxygen Flow Rate 07/15/18 18:46 07/15/18 19:00 07/15/18 19:01 Temperature Temperature Source Sepsis Recent Fever Within 48 Hours Sepsis New/Unexplained Change in Mental Status Sepsis Action Taken by Nursing Pulse Rate 80 80 80 Pulse Rate [Apical] Pulse Rate from SpO2 Sensor 80 80 80 Respiratory Rate 16 16 17 Respiratory Effort / Characteristics Respiratory Depth Respiratory Pattern Blood Pressure 103/57 L 97/53 L Blood Pressure [Right Arm] Blood Pressure Mean 72 67 Blood Pressure Mean [Right Arm] Blood Pressure Position Pulse Oximetry 92 92 92 Oxygen Delivery Method Oxygen Flow Rate 07/15/18 19:16 07/15/18 19:31 07/15/18 19:46 Temperature Temperature Source Sepsis Recent Fever Within 48 Hours Sepsis New/Unexplained Change in Mental Status Sepsis Action Taken by Nursing Pulse Rate 80 77 80 Pulse Rate [Apical] Pulse Rate from SpO2 Sensor 80 80 80 Respiratory Rate 17 16 15 Respiratory Effort / Characteristics Respiratory Depth Respiratory Pattern Blood Pressure 96/53 L 92/52 L 92/50 L Blood Pressure [Right Arm] Blood Pressure Mean 67 65 64 Blood Pressure Mean [Right Arm] Blood Pressure Position Pulse Oximetry 92 92 93 Oxygen Delivery Method Oxygen Flow Rate 07/15/18 20:00 07/15/18 20:01 07/15/18 20:16 Temperature Temperature Source Sepsis Recent Fever Within 48 Hours Sepsis New/Unexplained Change in Mental Status Sepsis Action Taken by Nursing Pulse Rate 81 80 84 Pulse Rate [Apical] Pulse Rate from SpO2 Sensor Respiratory Rate 16 16 16 Respiratory Effort / Characteristics Respiratory Depth Respiratory Pattern Blood Pressure 101/57 L 112/63 Blood Pressure [Right Arm] Blood Pressure Mean 71 79 Blood Pressure Mean [Right Arm] Blood Pressure Position Pulse Oximetry Oxygen Delivery Method Oxygen Flow Rate 07/15/18 20:31 07/15/18 20:46 07/15/18 21:00 Temperature Temperature Source Sepsis Recent Fever Within 48 Hours Sepsis New/Unexplained Change in Mental Status Sepsis Action Taken by Nursing Pulse Rate 81 81 82 Pulse Rate [Apical] Pulse Rate from SpO2 Sensor Respiratory Rate 15 16 18 Respiratory Effort / Characteristics Respiratory Depth Respiratory Pattern Blood Pressure 99/58 L 95/54 L Blood Pressure [Right Arm] Blood Pressure Mean 71 67 Blood Pressure Mean [Right Arm] Blood Pressure Position Pulse Oximetry Oxygen Delivery Method Oxygen Flow Rate 07/15/18 21:01 07/15/18 21:16 07/15/18 21:31 Temperature Temperature Source Sepsis Recent Fever Within 48 Hours Sepsis New/Unexplained Change in Mental Status Sepsis Action Taken by Nursing Pulse Rate 82 81 81 Pulse Rate [Apical] Pulse Rate from SpO2 Sensor Respiratory Rate 15 16 17 Respiratory Effort / Characteristics Respiratory Depth Respiratory Pattern Blood Pressure 94/61 L 93/58 L 111/49 L Blood Pressure [Right Arm] Blood Pressure Mean 72 69 69 Blood Pressure Mean [Right Arm] Blood Pressure Position Pulse Oximetry Oxygen Delivery Method Oxygen Flow Rate 07/15/18 21:46 07/15/18 22:15 07/15/18 22:30 Temperature Temperature Source Sepsis Recent Fever Within 48 Hours Sepsis New/Unexplained Change in Mental Status Sepsis Action Taken by Nursing Pulse Rate 82 Pulse Rate [Apical] Pulse Rate from SpO2 Sensor Respiratory Rate 17 Respiratory Effort / Characteristics Non-Labored Respiratory Depth Normal Respiratory Pattern Regular Blood Pressure 105/61 Blood Pressure [Right Arm] Blood Pressure Mean 75 Blood Pressure Mean [Right Arm] Blood Pressure Position Pulse Oximetry Oxygen Delivery Method Room Air Room Air Oxygen Flow Rate 07/15/18 22:34 07/15/18 23:35 07/16/18 00:00 Temperature 36.8 C 36.7 C Temperature Source Oral Oral Sepsis Recent Fever Within 48 Hours Sepsis New/Unexplained Change in Mental Status Sepsis Action Taken by Nursing Pulse Rate 94 H Pulse Rate [Apical] 86 53 L Pulse Rate from SpO2 Sensor Respiratory Rate 18 18 Respiratory Effort / Characteristics Non-Labored Spontaneous Respiratory Depth Normal Respiratory Pattern Regular Blood Pressure Blood Pressure [Right Arm] 103/58 L 163/81 H Blood Pressure Mean Blood Pressure Mean [Right Arm] 73 108 Blood Pressure Position Pulse Oximetry 96 92 Oxygen Delivery Method Room Air Room Air Oxygen Flow Rate GENERAL: Awake, alert, fatigued-appearing, in no distress HENT: Normocephalic, atraumatic. Mucous membranes dry. EYES: Normal conjunctiva. Sclera non-icteric. NECK: Supple. No nuchal rigidity. FROM. No JVD. RESPIRATORY: Clear to auscultation bilaterally. CARDIAC: Regular rate, normal rhythm. Extremities warm and well perfused. Pulses equal. ABDOMEN: Soft, non-distended. No tenderness to palpation. No rebound or guarding. No masses. RECTAL: Deferred. MUSCULOSKELETAL: Chest examination reveals no tenderness, and chest wall surgical site is clean, dry, and intact.. The back is symmetrical on inspection without obvious abnormality. There is no CVA tenderness to palpation. No joint edema. LOWER EXTREMITIES: Calves are equal size bilaterally and non-tender. Scant bilateral edema. No discoloration. NEURO: Normal sensorium. No sensory or motor deficits noted. SKIN: No rash or jaundice noted. Course 1707: The patient was evaluated in room A12B. A complete history and physical examination were performed. 1909: I consulted [facility]. [facility] Hospitalist. The patient will be reevaluated for hospitalization. Administered Medications Enoxaparin Sodium (Lovenox) 40 mg SQ QPM HERBIE Stop: 08/14/18 22:59 Last Admin: 07/15/18 23:18 Dose: 40 mg Documented by: [id number] Insulin Aspart (Novolog Flexpen) 0 units SC ACHS HERBIE Stop: 08/14/18 23:14 Last Admin: 07/15/18 23:41 Dose: 5 units Documented by: [id number] Cosigned by: [id number] Discontinued Medications Sodium Chloride (Nss 1000ml) 500 mls @ 999 mls/hr IV .Q31M ONE Stop: 07/15/18 17:50 Last Infusion: 07/15/18 19:19 Dose: 0 mls/hr Documented by: [id number] Admin: 07/15/18 18:31 Dose: 999 mls/hr Documented by: [id number] Furosemide 40 mg/ Syringe 4 mls @ 4 mls/min IV ONE ONE Stop: 07/15/18 22:46 Last Admin: 07/15/18 23:18 Dose: 4 mls/min Documented by: [id number] Medical Decision Making Differential Diagnosis Differential diagnosis includes: metabolic, infection, hypo/hyperglycemia, elec trolyte abnormalities, cardiac sources, intracerebral event, toxicologic, neurologic, as well as others were entertained. Medical Records Attestation: I reviewed the patient's medical records. Home Medications Current Medication List: was personally reviewed by me Laboratory Data Attestation: I reviewed the patient's lab results. Result diagrams: 07/15/18 17:35 07/15/18 17:35 Lab Results 07/15/18 07/15/18 07/15/18 Range/Units 17:35 17:35 17:35 WBC 8.09 (4.8-10.8) K/uL RBC 3.30 L (4.7-6.1) M/uL Hgb 10.2 L (14.0-18.0) g/dL Hct 32.3 L (42-52) % MCV 97.9 (80-100) fL MCH 30.9 (25-34) pg MCHC 31.6 L (32-36) g/dL RDW Std Deviation 60.6 H (36.4-46.3) fL RDW Coeff of [place] 17.1 H (11.5-14.5) % Plt Count 265 (130-400) K/uL MPV 10.0 (7.4-10.4) fL Immature Gran % (Auto) 0.2 % Neut % (Auto) 76.4 % Lymph % (Auto) 11.7 % [place] % (Auto) 9.8 % Eos % (Auto) 1.7 % Baso % (Auto) 0.2 % Immature Gran # (Auto) 0.02 (0.00-0.02) K/uL Neut # (Auto) 6.17 (1.4-6.5) K/uL Lymph # (Auto) 0.95 L (1.2-3.4) K/uL Stephenson # (Auto) 0.79 H (0.11-0.59) K/uL Eos # (Auto) 0.14 (0-0.5) K/uL Baso # (Auto) 0.02 (0-0.2) K/uL PT 10.5 (9.0-12.0) Seconds INR 1.0 (0.9-1.1) Sodium 134 L (136-145) mmol/L Potassium 4.5 (3.5-5.1) mmol/L Chloride 100 (98-107) mmol/L Carbon Dioxide 29 (21-32) mmol/L Anion Gap 5.0 (3-11) BUN 22 H (7-18) mg/dl Creatinine 1.64 H (0.6-1.4) mg/dl Est Cr Clr Drug Dosing Not Reportable Est GFR ( Amer) 46.1 Est GFR (Non-Af Amer) 39.7 BUN/Creatinine Ratio 13.6 (10-20) Glucose 130 H (70-99) mg/dl POC Glucose (70-99) Calcium 9.0 (8.5-10.1) mg/dl Phosphorus 3.7 (2.5-4.9) mg/dl Magnesium 2.3 (1.8-2.4) mg/dl Total Bilirubin 0.5 (0.2-1) mg/dl Direct Bilirubin 0.2 (0-0.2) mg/dl AST 18 (15-37) U/L ALT 31 (12-78) U/L Alkaline Phosphatase 116 (45-117) U/L Total Creatine Kinase (39-308) U/L Troponin I 0.071 H* (0-0.045) ng/ml NT-Pro-B Natriuret Pep 5470 H (0-1800) pg/ml Total Protein 7.1 (6.4-8.2) gm/dl Albumin 2.8 L (3.4-5.0) gm/dl Globulin 4.3 H (2.5-4.0) gm/dl Albumin/Globulin Ratio 0.7 L (0.9-2) Lipase 112 (73-393) U/L Urine Color Urine Appearance (Clear) Urine pH (4.5-7.5) Ur Specific [place] (1.000-1.030) Urine Protein (Negative) Urine Glucose (UA) (Negative) Urine Ketones (Negative) Urine Blood (Negative) Urine Nitrite (Negative) Urine Bilirubin (Negative) Urine Urobilinogen (Negative) Ur Leukocyte Esterase (Negative) 07/15/18 07/15/18 07/15/18 Range/Units 22:45 23:14 23:42 WBC (4.8-10.8) K/uL RBC (4.7-6.1) M/uL Hgb (14.0-18.0) g/dL Hct (42-52) % MCV (80-100) fL MCH (25-34) pg MCHC (32-36) g/dL RDW Std Deviation (36.4-46.3) fL RDW Coeff of [place] (11.5-14.5) % Plt Count (130-400) K/uL MPV (7.4-10.4) fL Immature Gran % (Auto) % Neut % (Auto) % Lymph % (Auto) % Stephenson % (Auto) % Eos % (Auto) % Baso % (Auto) % Immature Gran # (Auto) (0.00-0.02) K/uL Neut # (Auto) (1.4-6.5) K/uL Lymph # (Auto) (1.2-3.4) K/uL Stephen[place] # (Auto) (0.11-0.59) K/uL Eos # (Auto) (0-0.5) K/uL Baso # (Auto) (0-0.2) K/uL PT (9.0-12.0) Seconds INR (0.9-1.1) Sodium (136-145) mmol/L Potassium (3.5-5.1) mmol/L Chloride (98-107) mmol/L Carbon Dioxide (21-32) mmol/L Anion Gap (3-11) BUN (7-18) mg/dl Creatinine (0.6-1.4) mg/dl Est Cr Clr Drug Dosing Est GFR ( Amer) Est GFR (Non-Af Amer) BUN/Creatinine Ratio (10-20) Glucose (70-99) mg/dl POC Glucose 90 (70-99) Calcium (8.5-10.1) mg/dl Phosphorus (2.5-4.9) mg/dl Magnesium (1.8-2.4) mg/dl Total Bilirubin (0.2-1) mg/dl Direct Bilirubin (0-0.2) mg/dl AST (15-37) U/L ALT (12-78) U/L Alkaline Phosphatase (45-117) U/L Total Creatine Kinase 25 L (39-308) U/L Troponin I 0.078 H* (0-0.045) ng/ml NT-Pro-B Natriuret Pep (0-1800) pg/ml Total Protein (6.4-8.2) gm/dl Albumin (3.4-5.0) gm/dl Globulin (2.5-4.0) gm/dl Albumin/Globulin Ratio (0.9-2) Lipase (73-393) U/L Urine Color Yellow Urine Appearance Clear (Clear) Urine pH 5.5 (4.5-7.5) Ur Specific [place] 1.013 (1.000-1.030) Urine Protein Negative (Negative) Urine Glucose (UA) Negative (Negative) Urine Ketones Negative (Negative) Urine Blood Negative (Negative) Urine Nitrite Negative (Negative) Urine Bilirubin Negative (Negative) Urine Urobilinogen Negative (Negative) Ur Leukocyte Esterase Negative (Negative) Imaging Data Radiologist's Impression: Radiology results as stated below per my review and the radiologist's interpretation: SINGLE VIEW CHEST CLINICAL HISTORY: Atypical chest pain. FINDINGS: An AP, portable, upright chest radiograph is compared to chest x-ray and chest CT dated 06/18/2018. The examination is degraded by portable technique and patient rotation. The patient is status post midline sternotomy. The heart is enlarged and there is atherosclerotic calcification of the thoracic aorta. There is pulmonary vascular congestion and interstitial edema. There are layering pleural effusions with bibasilar consolidation. No pneumothorax is seen. The skeletal structures are osteopenic. The bony thorax is grossly intact. Skin clips are noted in the right axillary region. IMPRESSION: 1. Cardiomegaly with evidence of congestive failure and interstitial edema. 2. There are layering pleural effusions with bibasilar consolidation. Electronically signed by: Keith Allen M.D. 07/15/2018 5:52 PM ECG Data Attestation: I personally reviewed and interpreted this ECG as follows: Indication: weakness Rate (beats per minute): 81 Rhythm: sinus rhythm Findings: + other (no overt acute ischemic changes), + 1st degree AV block and + LBBB Blood Pressure Blood Pressure Findings: Normal blood pressure Blood Pressure Disposition: did not require urgent referral MDM Narrative The patient is a pleasant 77-year-old gentleman with a past medical history of CAD status post triple-vessel CABG 2 weeks ago at [facility] discharged yesterday to home who presents emergency department with generalized weakness which is unchanged from his discharge but hypotension on evaluation of home nursing per hpi. On arrival patient is fatigued appearing but no acute distress, afebrile with blood pressure 80s/40s and vital signs otherwise stable. Patient is mentating normally. He does appear clinically dry. EKG demonstrates left bundle branch block similar to prior with no Sgarbossa criteria. Chest x-ray with cardiomegaly and interpretation of interstitial edema pleural effusions however patient denies any respiratory symptoms and has normal oxygen saturation on room air. WBC within normal limits. H/H 10.2/32.3 lower from prior however status post CABG. Platelets within normal limits. C reatinine is 1.6 which is new from prior visit however no recent values from her check to compare. Troponin is 0.07 of unclear significance given the patient's recent CABG however will continue to trend. BNP 5K. Blood pressure improved after gentle IV fluid hydration. Given the patient's likely GIOVANNA in the setting of his recent hospitalization reasonable to admit the patient for further management and trending of his troponin. Case discussed with Dr. Castillo, [facility] hospitalist, who will evaluate the patient for admission. Impression & Plan GIOVANNA (acute kidney injury), Elevated troponin Discharge Plan Visit Data *Final* Discharge Date/Time: 07/15/18 22:15 Chief Complaint: Hypotension Stated Complaint: LOW BLOOD PRESSURE ED Provider: Lamont Jarrett Discharge Problem: GIOVANNA (acute kidney injury), Elevated troponin Patient Disposition: Admitted As Inpatient Discharge Instructions Interventions: ED Discharge Assessment Last Done: 07/15/18 22:15 The scribe's documentation has been prepared under my direction and personally reviewed by me in its entirety. I confirm that the note above accurately reflects all work, treatment, procedures, and medical decision making performed by me.
[2018-07-15] MEDS ORDERED: CARBOHYDRATES FOR HYPOGLYCEMIA PO PRN (22:25)
[2018-07-15] MEDS ORDERED: ACETAMINOPHEN 325 MG TAB PO PRN (22:25)
[2018-07-15] MEDS ORDERED: DEXTROSE 50% 50 ML SYRINGE IV PRN (22:25)
[2018-07-15] MEDS ORDERED: GLUCOSE 10 TABS/TUBE PO PRN (22:25)
[2018-07-15] MEDS ORDERED: GLUCOSE 40% GEL 15 GM TUBE PO PRN (22:25)
[2018-07-15] MEDS ORDERED: GLUCAGON FOR INJ 1 MG VIAL SQ PRN (22:25)
[2018-07-15] MEDS ORDERED: FUROSEMIDE 40 MG in SYRINGE 0 ML IV ONE (22:45)
[2018-07-15 23:11] LABS: Appearance Urine Clear (Clear); Bilirubin Urine Negative (Negative); Color Urine Yellow; Glucose Urine UA Negative (Negative); Ketones Urine Negative (Negative); Leukocyte Esterase Urine Negative (Negative); Nitrite Urine Negative (Negative); Protein Urine Negative (Negative); Specific Gravity Urine 1.013 (1.000-1.030); Urobilinogen Urine Negative (Negative); pH Urine 5.5 (4.5-7.5)
[2018-07-15] MEDS: ENOXAPARIN INJ 40 MG/0.4 ML SYR SQ SCH (23:18)
[2018-07-15] MEDS: INSULIN ASPART 100 UNITS/ML 3 ML PEN SC SCH (23:41)
[2018-07-16 01:29] LABS: Troponin I 0.078 ng/ml (0-0.045)
[2018-07-16 05:44] LABS: Basophils # (auto) 0.03 K/uL (0-0.2); Basophils % (auto) 0.4 %; Eosinophils # (auto) 0.21 K/uL (0-0.5); Eosinophils % (auto) 2.9 %; Hematocrit (blood only) 31.9 % (42-52); Hemoglobin 10.2 g/dL (14.0-18.0); Immature Granulocytes # (auto) 0.02 K/uL (0.00-0.02); Immature Granulocytes % (auto) 0.3 %; Lymphocytes # (auto) 0.94 K/uL (1.2-3.4); Lymphocytes % (auto) 12.9 %; Mean Corpuscular Volume 97.9 fL (80-100); Mean Platelet Volume 9.7 fL (7.4-10.4); Monocytes # (auto) 0.69 K/uL (0.11-0.59); Monocytes % (auto) 9.5 %; Neutrophils # (auto) 5.37 K/uL (1.4-6.5); Platelet Count 240 K/uL (130-400); RDW Coefficient of Variation 17.1 % (11.5-14.5); RDW Standard Deviation 60.1 fL (36.4-46.3); Red Blood Count 3.26 M/uL (4.7-6.1); White Blood Count 7.26 K/uL (4.8-10.8)
[2018-07-16 06:12] LABS: BUN Creatinine Ratio 15.9 (10-20); Calcium 8.5 mg/dl (8.5-10.1); Creatinine Clr Calc Pharmacy 48.7 ml/min; Est GFR (African American) 51.3; Est GFR (Non-African American) 44.3; Potassium 3.9 mmol/L (3.5-5.1)
[2018-07-16] MEDS ORDERED: INSULIN ASPART 100 UNITS/ML 3 ML PEN SC SCH (07:30)
[2018-07-16] MEDS: INSULIN ASPART 100 UNITS/ML 3 ML PEN SC SCH ×4 (07:48→20:50)
[2018-07-16] MEDS: AMIODARONE 200 MG TAB PO SCH (07:49)
[2018-07-16] MEDS: GABAPENTIN 100 MG CAP PO SCH ×2 (07:50→13:27)
[2018-07-16] MEDS: CLOPIDOGREL BISULFATE 75 MG TAB PO SCH (07:50)
[2018-07-16] MEDS: POTASSIUM CHLORIDE 10 MEQ TABCR PO SCH ×2 (07:51→20:52)
[2018-07-16] MEDS: NORTRIPTYLINE HCL 25 MG CAP PO SCH (07:52)
[2018-07-16] MEDS ORDERED: METOPROLOL TARTRATE 25 MG TAB PO SCH (09:00)
[2018-07-16] MEDS ORDERED: FUROSEMIDE 40 MG TAB PO SCH (09:00)
--- NOTE | 2018-07-16 10:01 | Cardiology Consultation ---
Date of Consultation July 16, 2018 Assessment & Plan (1) CAD (coronary artery disease): He is now status post CABG x3. No angina. Sternotomy site appears as though it is healing without obvious sign of infection. Continue Plavix for anti-platelet therapy as he is allergic to aspirin. Continue beta-lobito. Continue high-intensity statin therapy. (2) S/P CABG x 3: Plan as above. (3) Chronic systolic (congestive) heart failure: He may be mildly hypervolemic, but does not appear to be significantly so. He is asymptomatic in this regard without shortness of breath and has no JVD, orthopnea, or hepatic jugular reflux. He does have some lower extremity edema. Can give IV Lasix for now in place of oral Lasix but monitor renal function closely. Low-sodium diet. Check daily weights. Heart failure program recommended. Michaelle Hernandez notified. (4) H/O mitral valve replacement: He apparently had elevated gradients on most recent echo [facility]. This will be followed over time. (5) Fatigue: Could be secondary to recent surgery, long hospital stay, and also his severely reduced LV systolic function. He appears to be doing better today compared to what was reported on presentation. Cardiac rehab recommended when able to participate. (6) Cardiomyopathy: Recommended placing metoprolol tartrate with metoprolol succinate which will be done at this time. At some point, would recommend BRITT-inhibitor/ARB or Entresto. He was on ARB prior to his surgery. Will first make adjustment to beta-lobito as noted. Viability study reportedly demonstrated that his myocardium is mostly viable and therefore hopefully his LV systolic function improves. If not, would then want to discuss ICD for primary prevention, with consideration for biventricular ICD given LBBB. Disposition: Plan of care discussed with Dr. De La Paz of primary hospitalist service. Cardiology will continue to follow while hospitalized. Close follow- up as an outpatient also strongly recommended as he will be enrolled into the Heart failure program. Hopefully this hospitalization is not prolonged as he does not appear to be significantly hypervolemic and presented rather with fatigue. With significantly reduced LV systolic function, he does have a poor prognosis overall long-term. He was seen by palliative care at [facility] pre surgery and it is not unreasonable to have palliative care involved in his care currently as well. Palliative care consultation placed. Highly complex medical issues. Greater than 70 minutes spent, with greater than 50% time spent counseling patient also coordinating care while also reviewing extensive records from [facility]. Thank you for allowing me to participate in the care of your patient. Please call for any other questions or concerns. Sincerely, Grabiel Good M.D. History of Present Illness Reason for Consultation: Fatigue, systolic CHF, CAD status post CABG, recent mitral valve replacement Requesting Physician: Dr. Pauline Castillo Attending Physician: Amara De La Paz MD History of Present Illness is a pleasant 77-year-old gentleman with a history significant for multivessel CAD status post CABG x3, cardiogenic shock, systolic CHF, ischemic cardiomyopathy, mitral regurgitation status post mitral valve replacement, type 2 diabetes, hypertension, and dyslipidemia. He is also on amiodarone for history of frequent PVCs, as recommended by electrophysiology during June 2018 admission. He was discharged from [facility] on 07/14/2018 after being transferred there on 06/22/2018 for consideration of bypass surgery. He underwent thallium viability study on 06/23/2018 which demonstrated viable myocardium except for a small area involving the inferior wall. He was seen by heart failure specialists, palliative care, and CT surgery. On 06/26/2018, he underwent implantation of Impella device before undergoing mitral valve replacement, CABG x3, left atrial appendage clip, closure of PFO, and drainage of bilateral serous pleural effusions. Impella was later explanted. His most recent creatinine on 07/12/2018 was 1.2 with BUN of 22. He apparently was hoping to be sent to rehab facility but according to records, this apparently was not an option secondary to insurance. He was then brought to the hospital yesterday due to extreme fatigue. He does not remember exactly why he came to the hospital, stating that he does not remember all of those events from yesterday. Currently he feels tired but is alert. He denies chest pain other than when coughing and then the pain is along his sternotomy site. He denies shortness of breath, orthopnea, PND, syncope, near-syncope, palpitations, or worsening edema. He denies bleeding such as melena, hematochezia, or hematuria. He was discharged home on 40 mg of Lasix daily as well as metoprolol tartrate. He had been on ARB therapy prior to surgery. Extensive records were obtained from [facility] and reviewed. He has had the following studies/procedures: 1. Cardiac catheterization 06/18/2018: Ostial LM CA 60%. Distal LM CA 70%. Large calcium burden of distal LM CA involved ostium of LAD. Early mid LAD 70%. Proximal D1 60%. Ostial circumflex 100%. Large OM fills via [id number] collaterals. Proximal RCA 100%. Right to right bridging collaterals and also l [id number] collaterals. LVEDP 25. Mean PCWP 27. PA pressure 47/30 with mean of 36. Mean right atrial pressure 8. Cardiac index via thermodilution 2.4. PVR 1.7. 2. Thallium viability study at [facility] 06/23/2018: Viable myocardium except for small area involving the inferior wall. 3. CABG x3 and mitral valve replacement 06/26/2018: Underwent right subclavian Impella implantation. Mitral valve replacement with [address] [place] tissue valve. MARTINEZ to LAD. SVG to diagonal. SVG to OM. Left atrial appendage atrial clip. Closure of PFO. Drainage of bilateral serous pleural effusions. 4. Echo 07/08/2018 at [facility]: Severely reduced LV systolic function. EF 10%. Moderate LV dilation. Severe global hypokinesis. No apical thrombus. Mitral valve replacement with tissue valve appears well seated with no MR. Mitral valve velocities and gradients elevated. Review of systems: As above. Review of systems otherwise negative/unremarkable. He denies fevers, chills, drainage from sternotomy site. Family history: He has had at least 3 uncles with CAD. Social history: He quit smoking over 10 years ago after smoking 1 pack per day for many years. No alcohol. No drugs. He is a . He has 6 children. He has many grandchildren. Currently living with his daughter postoperatively. No family present at the bedside this morning when evaluated. Allergies Allergy/AdvReac Type Severity Reaction Status Date / Time aspirin Allergy Mild RASH Verified 07/15/18 19:47 Home Medications Home Medications Medication Instructions Recorded Confirmed Type amiodarone [Pacerone] 200 mg PO DAILY 07/15/18 07/15/18 History clopidogrel [Plavix] 75 mg PO DAILY 07/15/18 07/15/18 History furosemide [Lasix] 40 mg PO DAILY 07/15/18 07/15/18 History gabapentin [Neurontin] 100 mg PO TID 07/15/18 07/15/18 History glipizide 2.5 mg PO DAILY 07/15/18 07/15/18 History glipizide [Glucotrol XL] 5 mg PO DAILY 07/15/18 07/15/18 History metoprolol tartrate 12.5 mg PO BID 07/15/18 07/15/18 History nortriptyline [Pamelor] 75 mg PO DAILY 07/15/18 07/15/18 History potassium chloride 10 meq PO BID 07/15/18 07/15/18 History rosuvastatin [Crestor] 20 mg PO HS 07/15/18 07/15/18 History Patient History Medical History HLD (hyperlipidemia) HTN (hypertension) CAD (coronary artery disease), [place] coronary artery Cardiomyopathy Mitral regurgitation PVCs (premature ventricular contractions) Systolic CHF Chronic GERD Diabetes Surgical History Status post cardiac surgery S/P appendectomy Family History Other Family history non-contributory Social History Preferred Language: Scottish Communication Ability: Effective Brim Molder Required: No Beliefs That Will Affect Care: None marital status: / Current Living Situation: Family Other Information That Helps Us Care for You: No Feels Safe at Home: Yes Safety Concerns: Feels Safe At This Time Smoking Status: Former smoker Cigarettes Per Day: 1ppd x 50 years. Started at age 5 Do You Dip or Chew Tobacco: No Hx Alcohol Use: No Hx Substance Use: No Physical Exam Physical Exam: Gen.: No acute distress. Alert and oriented. HEENT: Anicteric sclera. Neck: No JVD. No bruits. Normal carotid upstrokes bilaterally. Cardiac: PMI was nonpalpable . No ventricular heave. Regular. Normal S1-S2. No murmurs, rubs, or gallops. Pulmonary: Clear to auscultation bilaterally without wheezes, rales, or rhonchi. Abdomen: Soft, nontender, nondistended, with normoactive bowel sounds. No bruits noted. Extremities: 2+ radial pulses bilaterally. 2+ posterior tibialis pulses bilaterally. 1+ bilateral lower extremity edema. No cyanosis. Psychiatric: Affect appears appropriate. Results & Data Vital Signs (Past 12 Hours) Vital Signs Temp Pulse Pulse Resp BP Pulse Ox 07/16/18 07:04 36.4 C L 91 H 16 98/62 L 93 07/16/18 04:14 36.4 C L 96 H 16 96/58 L 90 07/16/18 00:00 94 H 07/15/18 23:35 36.7 C 53 L 18 163/81 H 92 07/15/18 22:34 36.8 C 86 18 103/58 L 96 Laboratory Results Laboratory Results - last 24 hr 07/15/18 07/15/18 07/15/18 17:35 17:35 17:35 WBC 8.09 RBC 3.30 L Hgb 10.2 L Hct 32.3 L MCV 97.9 MCH 30.9 MCHC 31.6 L RDW Std Deviation 60.6 H RDW Coeff of [place] 17.1 H Plt Count 265 MPV 10.0 Immature Gran % (Auto) 0.2 Neut % (Auto) 76.4 Lymph % (Auto) 11.7 [place] % (Auto) 9.8 Eos % (Auto) 1.7 Baso % (Auto) 0.2 Immature Gran # (Auto) 0.02 Neut # (Auto) 6.17 Lymph # (Auto) 0.95 L [place] # (Auto) 0.79 H Eos # (Auto) 0.14 Baso # (Auto) 0.02 PT 10.5 INR 1.0 Sodium 134 L Potassium 4.5 Chloride 100 Carbon Dioxide 29 Anion Gap 5.0 BUN 22 H Creatinine 1.64 H Est Cr Clr Drug Dosing Not Reportable Est GFR ( Amer) 46.1 Est GFR (Non-Af Amer) 39.7 BUN/Creatinine Ratio 13.6 Glucose 130 H POC Glucose Calcium 9.0 Phosphorus 3.7 Magnesium 2.3 Total Bilirubin 0.5 Direct Bilirubin 0.2 AST 18 ALT 31 Alkaline Phosphatase 116 Total Creatine Kinase Troponin I 0.071 H* NT-Pro-B Natriuret Pep 5470 H Total Protein 7.1 Albumin 2.8 L Globulin 4.3 H Albumin/Globulin Ratio 0.7 L Lipase 112 Urine Color Urine Appearance Urine pH Ur Specific [place] Urine Protein Urine Glucose (UA) Urine Ketones Urine Blood Urine Nitrite Urine Bilirubin Urine Urobilinogen Ur Leukocyte Esterase 07/15/18 07/15/18 07/15/18 22:45 23:14 23:42 WBC RBC Hgb Hct MCV MCH MCHC RDW Std Deviation RDW Coeff of [place] Plt Count MPV Immature Gran % (Auto) Neut % (Auto) Lymph % (Auto) [place] % (Auto) Eos % (Auto) Baso % (Auto) Immature Gran # (Auto) Neut # (Auto) Lymph # (Auto) [place] # (Auto) Eos # (Auto) Baso # (Auto) PT INR Sodium Potassium Chloride Carbon Dioxide Anion Gap BUN Creatinine Est Cr Clr Drug Dosing Est GFR ( Amer) Est GFR (Non-Af Amer) BUN/Creatinine Ratio Glucose POC Glucose 90 Calcium Phosphorus Magnesium Total Bilirubin Direct Bilirubin AST ALT Alkaline Phosphatase Total Creatine Kinase 25 L Troponin I 0.078 H* NT-Pro-B Natriuret Pep Total Protein Albumin Globulin Albumin/Globulin Ratio Lipase Urine Color Yellow Urine Appearance Clear Urine pH 5.5 Ur Specific [place] 1.013 Urine Protein Negative Urine Glucose (UA) Negative Urine Ketones Negative Urine Blood Negative Urine Nitrite Negative Urine Bilirubin Negative Urine Urobilinogen Negative Ur Leukocyte Esterase Negative 07/16/18 07/16/18 07/16/18 05:35 05:35 11:23 WBC 7.26 RBC 3.26 L Hgb 10.2 L Hct 31.9 L MCV 97.9 MCH 31.3 MCHC 32.0 RDW Std Deviation 60.1 H RDW Coeff of [place] 17.1 H Plt Count 240 MPV 9.7 Immature Gran % (Auto) 0.3 Neut % (Auto) 74.0 Lymph % (Auto) 12.9 [place] % (Auto) 9.5 Eos % (Auto) 2.9 Baso % (Auto) 0.4 Immature Gran # (Auto) 0.02 Neut # (Auto) 5.37 Lymph # (Auto) 0.94 L [place] # (Auto) 0.69 H Eos # (Auto) 0.21 Baso # (Auto) 0.03 PT INR Sodium 136 Potassium 3.9 Chloride 103 Carbon Dioxide 30 Anion Gap 3.0 BUN 24 H Creatinine 1.50 H Est Cr Clr Drug Dosing 48.7 Est GFR ( Amer) 51.3 Est GFR (Non-Af Amer) 44.3 BUN/Creatinine Ratio 15.9 Glucose 134 H POC Glucose 218 H Calcium 8.5 Phosphorus Magnesium Total Bilirubin Direct Bilirubin AST ALT Alkaline Phosphatase Total Creatine Kinase Troponin I NT-Pro-B Natriuret Pep Total Protein Albumin Globulin Albumin/Globulin Ratio Lipase Urine Color Urine Appearance Urine pH Ur Specific [place] Urine Protein Urine Glucose (UA) Urine Ketones Urine Blood Urine Nitrite Urine Bilirubin Urine Urobilinogen Ur Leukocyte Esterase Diagnostic Findings Telemetry personally reviewed: Sinus rhythm. PVCs. ECG personally reviewed: ECG 07/15/2018: Sinus rhythm first-degree AV block at 81 bpm. LBBB. Chest x-ray personally reviewed from 07/15/2018: Findings concerning for vascular congestion. Extensive records reviewed from [facility]. Medications Administered Current Inpatient Medications Acetaminophen (Tylenol) 650 mg PO Q4H PRN PRN Reason: Pain or Fever Stop: 08/14/18 22:24 Amiodarone HCl (Cordarone) 200 mg PO DAILY HERBIE Stop: 08/15/18 08:59 Last Admin: 07/16/18 07:49 Dose: 200 mg Documented by: Clopidogrel Bisulfate (Plavix) 75 mg PO DAILY HERBIE Stop: 08/15/18 08:59 Last Admin: 07/16/18 07:50 Dose: 75 mg Documented by: Dextrose (Dextrose 50%) 25 - 50 ml IV UD PRN; Protocol PRN Reason: Hypoglycemia Protocol Stop: 08/14/18 22:24 Docusate Sodium (Colace) 100 mg PO BID PRN PRN Reason: Constipation Stop: 08/15/18 20:59 Enoxaparin Sodium (Lovenox) 40 mg SQ QPM HERBIE Stop: 08/14/18 22:59 Last Admin: 07/15/18 23:18 Dose: 40 mg Documented by: Furosemide (Lasix) 40 mg PO DAILY HERBIE Stop: 08/15/18 08:59 Last Admin: 07/16/18 07:50 Dose: 40 mg Documented by: Gabapentin (Neurontin) 100 mg PO TID HERIBE Stop: 08/15/18 08:59 Last Admin: 07/16/18 07:50 Dose: 100 mg Documented by: Glucagon (Glucagen) 1 mg SQ UD PRN; Protocol PRN Reason: Hypoglycemia Protocol Stop: 08/14/18 22:24 Glucose (Dex4 Glucose) 4 - 8 tabs PO UD PRN; Protocol PRN Reason: Hypoglycemia Protocol Stop: 08/14/18 22:24 Glucose (Glucose 40%) 15 - 30 gm PO UD PRN; Protocol PRN Reason: Hypoglycemia Protocol Stop: 08/14/18 22:24 Furosemide 40 mg/ Syringe 4 mls @ 4 mls/min IV [id number] HERBIE Stop: 08/15/18 09:44 Last Admin: 07/16/18 11:15 Dose: 4 mls/min Documented by: Insulin Aspart (Novolog Flexpen) 0 units SC ACHS [facility] Stop: 08/14/18 23:14 Last Admin: 07/16/18 11:56 Dose: 12 units Documented by: Metoprolol Succinate (Toprol Xl) 25 mg PO QAM [facility] Stop: 08/15/18 09:59 Last Admin: 07/16/18 11:14 Dose: 25 mg Documented by: Miscellaneous (Carbohydrates For Hypoglycemia) 15 - 30 gm PO UD PRN PRN Reason: Hypoglycemia Treatment Stop: 08/14/18 22:24 Nortriptyline HCl (Pamelor) 75 mg PO DAILY [facility] Stop: 08/15/18 08:59 Last Admin: 07/16/18 07:52 Dose: 75 mg Documented by: Potassium Chloride (Klor-Con M10) 10 meq PO BID [facility] Stop: 08/15/18 08:59 Last Admin: 07/16/18 07:51 Dose: 10 meq Documented by: Rosuvastatin Calcium (Crestor) 20 mg PO HS [facility] Stop: 08/15/18 20:59
[2018-07-16] MEDS: METOPROLOL SUCC 25MG EXT REL TAB PO SCH (11:14)
[2018-07-16] MEDS: FUROSEMIDE 40 MG in SYRINGE 0 ML IV SCH ×2 (11:15→18:23)
[2018-07-16] MEDS ORDERED: DOCUSATE SODIUM 100 MG CAP PO PRN (12:20)
--- NOTE | 2018-07-16 14:52 | Palliative Care Consultation ---
Date of Consultation July 16, 2018 Assessment & Plan (1) Goals of care, counseling/discussion: Met with patient along with his daughter Sheryl who he has named as his medical POA. Patient is a 77-year-old male with a past medical history of hypertension, HLD, diabetes, GERD, history of tobacco use, CAD, CHF, left bundle branch block and congenital absence of the right kidney, who was recently hospitalized here at [facility] from 06/18 to 06/22-he was transferred to [facility] due to severe CAD for CABG. Patient underwent three-vessel CABG as well as mitral valve replacement and closure of a PFO on 06/26. Patient had an echo on 07/08 which showed an EF of 10%, his prior echo on 06/19 showed an EF of 2530 %. Patient was discharged from [facility] on 07/14-he was to have home PT/OT but was noted on evaluation on 07/15 to have a low blood pressure-80 over 40s. Patient was sent to the emergency room and subsequently admitted. Patient being followed by cardiology-palliative care consulted to address CODE STATUS and goals of care. Patient is alert and oriented x4-however he does not remember some recent events due to syncopal episode when he presented to the ER in June. Patient is alert and oriented-understands his current status-would like to return home with home therapy-was already [facility] with the [facility]. Discussed CODE STATUS with both patient and daughter-both in agreement that DNR is appropriate and is consistent with patient wishes. Discussed transitioning home with home health to continue therapies at home as patient's goal would be to try to regain some strength and function at home with consideration for transition to hospice. Patient reports that getting up from bed and going to the bathroom here at the hospital utilizes most of the energy he has for the entire day. Will collaborate with case management regarding home PT/OT, collaborated with Dr. Júnior Pete-would discontinue his Neurontin at this time-patient has no neuropathic diabetic pain-this was started at [facility] and may be contributing to his fatigue. Patient continues to have episodes of low blood pressure-we will defer to cardiology for further med adjustments. On admission patient's hemoglobin was 10.2-his hemoglobin was 14 preop, BUN 22, creatinine 1.64 has now improved to 1.5, his prior baseline was 0.91.3. Patient had elevated troponin at 0.071, proBNP was 5470, albumin 2.8. Patient has 6 children-his 2 daughters Sarah and Sheryl are involved with his care. Patient stated he would want Sheryl to be his medical power of transactional attorney- will contact patient market survey representative to assist with paperwork stating such. -CODE STATUS-changed to DNR as per patient wishes patient's POA in agreement -CAD/CABG-on 06/26-EF 10% on echo done on 07/08, prior EF in June was 25 to 30% - patient is hopeful for some functional recovery status post revascularization -CHF-positive orthopnea, EF 10%, bilateral pleural effusions, edema, shortness of breath with minimal exertion -med changes as per cardiology -Weakness-poor cardiac function contributing as well as critical illness myopathy status post CABG/MVR/PFO repair-patient's goal is to return home and participate in home PT/OT as tolerated -Fatigue-due to poor EF with poor exercise tolerance-would suggest stopping Neurontin for now as this was started at [facility], patient has no current neuropathic pain due to his diabetes, and it may be contributing to his fatigue -Will continue to follow and assist patient and family with medical decision making (2) CAD (coronary artery disease): (3) S/P CABG x 3: (4) Diabetes mellitus: (5) Acute combined systolic (congestive) and diastolic (congestive) heart failure: (6) Anemia: (7) H/O mitral valve replacement: History of Present Illness Reason for Consultation: Address CODE STATUS as well as goals of care Requesting Physician: Dr. Good Attending Physician: Amara De La Paz MD History of Present Illness Met with patient along with his daughter Sheryl who he has named as his medical POA. Patient is a 77-year-old male with a past medical history of hypertension, HLD, diabetes, GERD, history of tobacco use, CAD, CHF, left bundle branch block and congenital absence of the right kidney, who was recently hospitalized here at [facility] from 06/18 to 06/22-he was transferred to [facility] due to severe CAD for CABG. Patient underwent three-vessel CABG as well as mitral valve replacement and closure of a PFO on 06/26. Patient had an echo on 07/08 which showed an EF of 10%, his prior echo on 06/19 showed an EF of 2530 %. Patient was discharged from [facility] on 07/14-he was to have home PT/OT but was noted on evaluation on 07/15 to have a low blood pressure-80 over 40s. Patient was sent to the emergency room and subsequently admitted. Patient being followed by cardiology-palliative care consulted to address CODE STATUS and goals of care. Patient is alert and oriented x4-however he does not remember some recent events due to syncopal episode when he presented to the ER in June. Patient is alert and oriented-understands his current status-would like to return home with home therapy-was already [facility] with [facility]. Discussed CODE STATUS with both patient and daughter-both in agreement that DNR is appropriate and is consistent with patient wishes. Discussed transitioning home with home health to continue therapies at home as patient's goal would be to try to regain some strength and function at home with consideration for transition to hospice. Patient reports that getting up from bed and going to the bathroom here at the hospital utilizes most of the energy he has for the entire day. Will collaborate with case management regarding home PT/OT, collaborated with Dr. Júnior Pete-would discontinue his Neurontin at this time-patient has no neuropathic diabetic pain-this was started at [facility] and may be contributing to his fatigue. Patient continues to have episodes of low blood pressure-we will defer to cardiology for further med adjustments. On admission patient's hemoglobin was 10.2-his hemoglobin was 14 preop, BUN 22, creatinine 1.64 has now improved to 1.5, his prior baseline was 0.91.3. Patient had elevated troponin at 0.071, proBNP was 5470, albumin 2.8. Patient has 6 children-his 2 daughters Sarah and Sheryl are involved with his care. Patient stated he would want Sheryl to be his medical power of transactional attorney- will contact patient market survey representative to assist with paperwork stating such. Allergies Allergy/AdvReac Type Severity Reaction Status Date / Time aspirin Allergy Mild RASH Verified 07/15/18 19:47 Home Medications Home Medications Medication Instructions Recorded Confirmed Type amiodarone [Pacerone] 200 mg PO DAILY 07/15/18 07/15/18 History clopidogrel [Plavix] 75 mg PO DAILY 07/15/18 07/15/18 History furosemide [Lasix] 40 mg PO DAILY 07/15/18 07/15/18 History gabapentin [Neurontin] 100 mg PO TID 07/15/18 07/15/18 History glipizide 2.5 mg PO DAILY 07/15/18 07/15/18 History glipizide [Glucotrol XL] 5 mg PO DAILY 07/15/18 07/15/18 History metoprolol tartrate 12.5 mg PO BID 07/15/18 07/15/18 History nortriptyline [Pamelor] 75 mg PO DAILY 07/15/18 07/15/18 History potassium chloride 10 meq PO BID 07/15/18 07/15/18 History rosuvastatin [Crestor] 20 mg PO HS 07/15/18 07/15/18 History Patient History Medical History HLD (hyperlipidemia) HTN (hypertension) Chronic GERD Diabetes Surgical History Status post cardiac surgery S/P appendectomy Family History Other Family history non-contributory Social History Preferred Language: Chinese Communication Ability: Effective Cad Application Support Specialist Required: No Beliefs That Will Affect Care: None Current Living Situation: Family Other Information That Helps Us Care for You: No Feels Safe at Home: Yes Safety Concerns: Feels Safe At This Time Smoking Status: Former smoker Cigarettes Per Day: 1ppd x 50 years. Started at age 5 Do You Dip or Chew Tobacco: No Hx Alcohol Use: No Hx Substance Use: No Review of Systems Constitutional: + fatigue and + weakness; no fever Eyes: no problem reported Ear, Nose, Mouth, Throat: Hearing loss in right ear Respiratory: + cough, + dyspnea on exertion and + pain with cough Pain with cough is due to recent sternotomy Cardiovascular: + dyspnea on exertion, + orthopnea and + edema Gastrointestinal: no abdominal pain, no nausea and no dysphagia Musculoskeletal: + muscle weakness Integumentary: Surgical sites healing well Neurologic: + unsteadiness, + generalized weakness and + syncope Psychiatric: no behavioral changes Endocrine: Dekekyxg-ucj-wddqqka-dependent Hematologic / Lymphatic: Postop anemia Physical Exam Physical Exam: PE: Patient is alert and oriented, no acute distress at rest, mild increased dyspnea with conversation HEENT: Hearing loss right ear Respiratory: Mild increased shortness of breath with conversation, positive orthopnea, decreased breath sounds both bases CV: Regular rate, bilateral lower extremity edema right greater than left Abdomen: Soft, positive bowel sounds, surgical sites healing well Extremities: Positive edema Neuro: Alert and oriented x4 Psych: Appropriate Results & Data Vital Signs (Past 12 Hours) Vital Signs Temp Pulse Resp BP Pulse Ox 07/16/18 11:25 97.7 F 99 H 18 93/61 L 96 07/16/18 07:04 97.5 F L 91 H 16 98/62 L 93 07/16/18 04:14 97.5 F L 96 H 16 96/58 L 90 Time Spent Attending Total time spent 90 minutes with greater than 50% of the time spent at bedside discussing patient's current status, goals of care as well as CODE STATUS
--- NOTE | 2018-07-16 15:19 | Family Medicine Progress Note ---
Date of Service July 16, 2018 Assessment & Plan (1) Fatigue: 77-year-old male was admitted on 15 Jul 2018 for weakness. Of note, he was discharged from [facility] yesterday () following heart surgery. Fatigue/ Chronic Systolic HF -Per daughters, patient has had difficulty with any ambulation due to weakness since arrival back home. Pt was deemed "too good" for acute rehab per insurance -CXR suggestive of congestive failure, interstitial edema, and pleural effusions. ER EKG showed normal sinus rhythm, first degree AV block and left BBB. -likely contributed by recent surgery, long hospital stay, and severely reduced LV systolic function. EF at [facility] noted to be 10% (Was 20-25% 06/19). Mildly hypervolemic, but w/o SOB, JVD, orthopnea. 2+ LE edema. Will cont IV Lasix for now and will monitor renal function closely. -Low-sodium diet, daily weights -Cards [facility] Heart failure program when able -[facility] care consulted and spoke with pt. See note CAD -s/p CABG x3. No angina sxs at present. -continue Plavix for anti-platelet therapy (allergic to ASA), beta-lobito, and high-intensity statin Cardiomyopathy -Switched to metoprolol succinate from metoprolol tartrate -will consider BRITT-inhibitor/ARB or combo Entresto moving forward. Pt was on ARB prior to sx. -Cards notes that pt's myocardium is mostly viable and therefore hopefully his LV systolic function improves. If not, then will discuss ICD for primary prevention, or biventricular ICD given LBBB Elevated creatinine -Admit Cr 1.64. BUN 22. Today improved Cr 1.5. Baseline around 1.1. -Congenital absence of the right kidney. Voiding without difficulty -will cont to trend Anemia -Admit Hb 10.2, normal MCV. Today 10.2 -No reports of bleeding in past 24 hours -will cont to monitor s/s for anemia and trend h/h HTN/HLD/Combined systolic and diastolic CHF -As above, willl continue home amiodarone, Plavix, Lasix, metoprolol, potassium, Crestor. DM -HbA1c 9.6 in May 2018. -At home is on glipizide, Neurontin, nortriptyline. Will place on ISS here -will d/c his Neurontin as pt has no neuropathic diabetic pain (this was started at [facility] and may be contributing to his fatigue) FEN/GI: Heart healthy, diabetes. Added boost. DVT prophylaxis: Lovenox Dispo: Cont on PCU telemetry. On d/c: close f/u as an outpt w/ cards, will be enrolled into the Heart failure program. Pal care discussed transitioning home with home health to continue therapies at home as pt's goal would be to try to regain some strength and function at home with consideration for transition to hospice. Will coordinate with CM DNR/DNI Supervising Physician Co-Signing Physician Notes Resident Physician Supervision Note: I independently interviewed and examined the patient and verified the song history and physical, reviewed labs and image studies, discussed the case with the resident Dr. Peet and agree with the findings and care plan. Subjective 77 y/o M found in bed this AM in NAD. No acute overnight events. Still reported to have some ongoing fatigue, some improvement from yesterday. Noted to get very tired even just getting up and going to bathroom. Tolerating PO intake. No issue s voiding. No other acute concerns or complaints. Review of Systems Review of Systems: All systems reviewed & are unremarkable except as noted in HPI & below Physical Exam Constitutional: WD/WN, vitals as above mildly somnolent Eyes: PERRL, conjunctivae normal, anicteric sclerae ENMT: dry oropharynx Respiratory: some crackles noted Cardiovascular: RRR, no murmur, no edema Chest (Breasts): Additional Comments: well healing midline sternal scar Gastrointestinal (Abdomen): normal bowel sounds, soft, nontender, no hepatosplenomegaly Skin: no rashes, warm and dry Psychiatric: A+Ox3, euthymic affect Lymphatic: 2+ pretibial edema Results & Data Vital Signs (Past 12 Hours) Vital Signs Temp Pulse Resp BP Pulse Ox 07/16/18 11:25 36.5 C 99 H 18 93/61 L 96 07/16/18 07:04 36.4 C L 91 H 16 98/62 L 93 07/16/18 04:14 36.4 C L 96 H 16 96/58 L 90 Laboratory Results Laboratory Results - last 24 hr 07/15/18 07/15/18 07/15/18 17:35 17:35 17:35 WBC 8.09 RBC 3.30 L Hgb 10.2 L Hct 32.3 L MCV 97.9 MCH 30.9 MCHC 31.6 L RDW Std Deviation 60.6 H RDW Coeff of [place] 17.1 H Plt Count 265 MPV 10.0 Immature Gran % (Auto) 0.2 Neut % (Auto) 76.4 Lymph % (Auto) 11.7 [place] % (Auto) 9.8 Eos % (Auto) 1.7 Baso % (Auto) 0.2 Immature Gran # (Auto) 0.02 Neut # (Auto) 6.17 Lymph # (Auto) 0.95 L [place] # (Auto) 0.79 H Eos # (Auto) 0.14 Baso # (Auto) 0.02 PT 10.5 INR 1.0 Sodium 134 L Potassium 4.5 Chloride 100 Carbon Dioxide 29 Anion Gap 5.0 BUN 22 H Creatinine 1.64 H Est Cr Clr Drug Dosing Not Reportable Est GFR ( Amer) 46.1 Est GFR (Non-Af Amer) 39.7 BUN/Creatinine Ratio 13.6 Glucose 130 H POC Glucose Calcium 9.0 Phosphorus 3.7 Magnesium 2.3 Total Bilirubin 0.5 Direct Bilirubin 0.2 AST 18 ALT 31 Alkaline Phosphatase 116 Total Creatine Kinase Troponin I 0.071 H* NT-Pro-B Natriuret Pep 5470 H Total Protein 7.1 Albumin 2.8 L Globulin 4.3 H Albumin/Globulin Ratio 0.7 L Lipase 112 Urine Color Urine Appearance Urine pH Ur Specific Eva Urine Protein Urine Glucose (UA) Urine Ketones Urine Blood Urine Nitrite Urine Bilirubin Urine Urobilinogen Ur Leukocyte Esterase 07/15/18 07/15/18 07/15/18 22:45 23:14 23:42 WBC RBC Hgb Hct MCV MCH MCHC RDW Std Deviation RDW Coeff of [place] Plt Count MPV Immature Gran % (Auto) Neut % (Auto) Lymph % (Auto) [place] % (Auto) Eos % (Auto) Baso % (Auto) Immature Gran # (Auto) Neut # (Auto) Lymph # (Auto) [place] # (Auto) Eos # (Auto) Baso # (Auto) PT INR Sodium Potassium Chloride Carbon Dioxide Anion Gap BUN Creatinine Est Cr Clr Drug Dosing Est GFR ( Amer) Est GFR (Non-Af Amer) BUN/Creatinine Ratio Glucose POC Glucose 90 Calcium Phosphorus Magnesium Total Bilirubin Direct Bilirubin AST ALT Alkaline Phosphatase Total Creatine Kinase 25 L Troponin I 0.078 H* NT-Pro-B Natriuret Pep Total Protein Albumin Globulin Albumin/Globulin Ratio Lipase Urine Color Yellow Urine Appearance Clear Urine pH 5.5 Ur Specific Eva 1.013 Urine Protein Negative Urine Glucose (UA) Negative Urine Ketones Negative Urine Blood Negative Urine Nitrite Negative Urine Bilirubin Negative Urine Urobilinogen Negative Ur Leukocyte Esterase Negative 07/16/18 07/16/18 07/16/18 05:35 05:35 11:23 WBC 7.26 RBC 3.26 L Hgb 10.2 L Hct 31.9 L MCV 97.9 MCH 31.3 MCHC 32.0 RDW Std Deviation 60.1 H RDW Coeff of [place] 17.1 H Plt Count 240 MPV 9.7 Immature Gran % (Auto) 0.3 Neut % (Auto) 74.0 Lymph % (Auto) 12.9 [place] % (Auto) 9.5 Eos % (Auto) 2.9 Baso % (Auto) 0.4 Immature Gran # (Auto) 0.02 Neut # (Auto) 5.37 Lymph # (Auto) 0.94 L [place] # (Auto) 0.69 H Eos # (Auto) 0.21 Baso # (Auto) 0.03 PT INR Sodium 136 Potassium 3.9 Chloride 103 Carbon Dioxide 30 Anion Gap 3.0 BUN 24 H Creatinine 1.50 H Est Cr Clr Drug Dosing 48.7 Est GFR ( Amer) 51.3 Est GFR (Non-Af Amer) 44.3 BUN/Creatinine Ratio 15.9 Glucose 134 H POC Glucose 218 H Calcium 8.5 Phosphorus Magnesium Total Bilirubin Direct Bilirubin AST ALT Alkaline Phosphatase Total Creatine Kinase Troponin I NT-Pro-B Natriuret Pep Total Protein Albumin Globulin Albumin/Globulin Ratio Lipase Urine Color Urine Appearance Urine pH Ur Specific Eva Urine Protein Urine Glucose (UA) Urine Ketones Urine Blood Urine Nitrite Urine Bilirubin Urine Urobilinogen Ur Leukocyte Esterase Medications Administered Current Inpatient Medications Acetaminophen (Tylenol) 650 mg PO Q4H PRN PRN Reason: Pain or Fever Stop: 08/14/18 22:24 Amiodarone HCl (Cordarone) 200 mg PO DAILY [facility] Stop: 08/15/18 08:59 Last Admin: 07/16/18 07:49 Dose: 200 mg Documented by: Clopidogrel Bisulfate (Plavix) 75 mg PO DAILY [facility] Stop: 08/15/18 08:59 Last Admin: 07/16/18 07:50 Dose: 75 mg Documented by: Dextrose (Dextrose 50%) 25 - 50 ml IV UD PRN; Protocol PRN Reason: Hypoglycemia Protocol Stop: 08/14/18 22:24 Docusate Sodium (Colace) 100 mg PO BID PRN PRN Reason: Constipation Stop: 08/15/18 20:59 Enoxaparin Sodium (Lovenox) 40 mg SQ QPM [facility] Stop: 08/14/18 22:59 Last Admin: 07/15/18 23:18 Dose: 40 mg Documented by: Furosemide (Lasix) 40 mg PO DAILY [facility] Stop: 08/15/18 08:59 Last Admin: 07/16/18 07:50 Dose: 40 mg Documented by: Glucagon (Glucagen) 1 mg SQ UD PRN; Protocol PRN Reason: Hypoglycemia Protocol Stop: 08/14/18 22:24 Glucose (Dex4 Glucose) 4 - 8 tabs PO UD PRN; Protocol PRN Reason: Hypoglycemia Protocol Stop: 08/14/18 22:24 Glucose (Glucose 40%) 15 - 30 gm PO UD PRN; Protocol PRN Reason: Hypoglycemia Protocol Stop: 08/14/18 22:24 Furosemide 40 mg/ Syringe 4 mls @ 4 mls/min IV [id number] [facility] Stop: 08/15/18 09:44 Last Admin: 07/16/18 11:15 Dose: 4 mls/min Documented by: Insulin Aspart (Novolog Flexpen) 0 units SC ACHS [facility] Stop: 08/14/18 23:14 Last Admin: 07/16/18 11:56 Dose: 12 units Documented by: Metoprolol Succinate (Toprol Xl) 25 mg PO QAM [facility] Stop: 08/15/18 09:59 Last Admin: 07/16/18 11:14 Dose: 25 mg Documented by: Miscellaneous (Carbohydrates For Hypoglycemia) 15 - 30 gm PO UD PRN PRN Reason: Hypoglycemia Treatment Stop: 08/14/18 22:24 Nortriptyline HCl (Pamelor) 75 mg PO DAILY [facility] Stop: 08/15/18 08:59 Last Admin: 07/16/18 07:52 Dose: 75 mg Documented by: Potassium Chloride (Klor-Con M10) 10 meq PO BID [facility] Stop: 06/08/19 08:59 Last Admin: 07/16/18 07:51 Dose: 10 meq Documented by: Rosuvastatin Calcium (Crestor) 20 mg PO HS [facility] Stop: 08/15/18 20:59 Resident Activity Tracking Resident Involvement: Resident Care Provided Care Provided: Adult Hospital Medicine
[2018-07-16] MEDS: ENOXAPARIN INJ 40 MG/0.4 ML SYR SQ SCH (20:50)
[2018-07-16] MEDS ORDERED: ROSUVASTATIN CALCIUM 20 MG TAB PO SCH (21:00)
--- NOTE | 2018-07-17 07:38 | Cardiology Progress Note ---
Date of Service July 17, 2018 Assessment & Plan (1) CAD (coronary artery disease): He is now status post CABG x3. No angina. Sternotomy site appears as though it is healing without obvious sign of infection. Continue Plavix for anti-platelet therapy as he is allergic to aspirin. Continue beta-lobito. Continue high-intensity statin therapy. (2) S/P CABG x 3: Plan as above. (3) Chronic systolic (congestive) heart failure: He does not appear significantly hypervolemic. Most of his edema is in his left leg which is s/p vein harvest. He has denied orthopnea/SOB. On discharge, would recommend lasix 40 mg po bid. Low-sodium diet. Check daily weights. Heart failure program recommended. Michaelle Hernandez aware. I/Os are not accurate as he has been discarding his urine. (4) H/O mitral valve replacement: He apparently had elevated gradients on most recent echo [facility]. This will be followed over time. (5) Fatigue: Could be secondary to recent surgery, long hospital stay, and also his severely reduced LV systolic function. Would expect this to be a long recovery as he had prolonged hospital stay at [facility] post operatively. Cardiac rehab recommended when able to participate. (6) Cardiomyopathy: Continue metoprolol succinate. He is mildly hypotensive but typically mild hypotension in setting of severely reduced systolic function can still tolerate initiation/titration of standard meds. Recommend moving cautiously. Start captopril 6.25 mg po tid today. This can be changed to once daily BRITT I, or if able to obtain Entresto bid in the near future. Choosing short acting med so that it can be quickly stopped if not tolerated. Viability study reportedly demonstrated that his myocardium is mostly viable and therefore hopefully his LV systolic function improves. He is not interested in ICD. He wished to be DNR/DNI. Limited echo ordered to evaluate for any improvement. Disposition: He wishes to be discharged today. The main reason for observation was fatigue and expect him to have slow recovery if he recovers. Poor prognosis. Hopefully LV systolic function improves following revascularization. Close HF program follow up recommended. Patient care discussed with Dr. De La Paz. Subjective He feels better now than on presentation. He denies shortness of breath, angina, syncope, palpitations, or bleeding. He has not collected urine output but states he has been urinating significant amounts. He wished to be DNR/DNI and met with Palliative care yesterday. He wants to go home today. He is still fatigued. ROS: as above. Physical Exam Physical Exam: Gen.: No acute distress. Alert and oriented. HEENT: Anicteric sclera. Neck: No JVD. No hepatojugular reflux noted. Cardiac:Regular. Normal S1-S2. No murmurs, rubs, or gallops. Pulmonary: Decreased breath sounds at the bases. Clear to auscultation bilaterally without wheezes, rales, or rhonchi. Abdomen: Soft, nontender, nondistended, with normoactive bowel sounds. No bruits noted. Extremities: 1+ left lower extremity edema (vein harvest site). Trace right lower extremity pitting edema. No cyanosis. Psychiatric: Affect appears appropriate. Results & Data Vital Signs (Past 12 Hours) Vital Signs Temp Pulse Resp BP Pulse Ox 07/17/18 03:00 36.9 C 93 H 15 99/62 L 92 07/16/18 23:20 37.3 C 88 16 97/59 L 93 Laboratory Results Laboratory Results - last 24 hr 07/16/18 07/16/18 07/16/18 11:23 16:14 20:09 POC Glucose 218 H 151 H 143 H 07/17/18 07:06 POC Glucose 160 H Diagnostic Findings Telemetry reviewed: Sinus rhythm with PVCs. Medications Administered Current Inpatient Medications Acetaminophen (Tylenol) 650 mg PO Q4H PRN PRN Reason: Pain or Fever Stop: 08/14/18 22:24 Amiodarone HCl (Cordarone) 200 mg PO DAILY HERBIE Stop: 08/15/18 08:59 Last Admin: 07/16/18 07:49 Dose: 200 mg Documented by: Clopidogrel Bisulfate (Plavix) 75 mg PO DAILY HERBIE Stop: 08/15/18 08:59 Last Admin: 07/16/18 07:50 Dose: 75 mg Documented by: Dextrose (Dextrose 50%) 25 - 50 ml IV UD PRN; Protocol PRN Reason: Hypoglycemia Protocol Stop: 08/14/18 22:24 Docusate Sodium (Colace) 100 mg PO BID PRN PRN Reason: Constipation Stop: 08/15/18 20:59 Enoxaparin Sodium (Lovenox) 40 mg SQ QPM HERBIE Stop: 08/14/18 22:59 Last Admin: 07/16/18 20:50 Dose: 40 mg Documented by: Furosemide (Lasix) 40 mg PO DAILY HERBIE Stop: 08/15/18 08:59 Last Admin: 07/16/18 07:50 Dose: 40 mg Documented by: Glucagon (Glucagen) 1 mg SQ UD PRN; Protocol PRN Reason: Hypoglycemia Protocol Stop: 08/14/18 22:24 Glucose (Dex4 Glucose) 4 - 8 tabs PO UD PRN; Protocol PRN Reason: Hypoglycemia Protocol Stop: 08/14/18 22:24 Glucose (Glucose 40%) 15 - 30 gm PO UD PRN; Protocol PRN Reason: Hypoglycemia Protocol Stop: 08/14/18 22:24 Furosemide 40 mg/ Syringe 4 mls @ 4 mls/min IV BID17 HERBIE Stop: 08/15/18 09:44 Last Admin: 07/16/18 18:23 Dose: 4 mls/min Documented by: Insulin Aspart (Novolog Flexpen) 0 units SC ACHS HERBIE Stop: 08/14/18 23:14 Last Admin: 07/16/18 20:50 Dose: 1 units Documented by: Metoprolol Succinate (Toprol Xl) 25 mg PO QAM HERBIE Stop: 08/15/18 09:59 Last Admin: 07/16/18 11:14 Dose: 25 mg Documented by: Miscellaneous (Carbohydrates For Hypoglycemia) 15 - 30 gm PO UD PRN PRN Reason: Hypoglycemia Treatment Stop: 08/14/18 22:24 Nortriptyline HCl (Pamelor) 75 mg PO DAILY HERBIE Stop: 08/15/18 08:59 Last Admin: 07/16/18 07:52 Dose: 75 mg Documented by: Potassium Chloride (Klor-Con M10) 10 meq PO BID HERBIE Stop: 08/15/18 08:59 Last Admin: 07/16/18 20:52 Dose: 10 meq Documented by: Rosuvastatin Calcium (Crestor) 20 mg PO HS [facility] Stop: 08/15/18 20:59 Last Admin: 07/16/18 20:51 Dose: 20 mg Documented by:
[2018-07-17 07:44] LABS: Basophils # (auto) 0.02 K/uL (0-0.2); Basophils % (auto) 0.3 %; Eosinophils # (auto) 0.19 K/uL (0-0.5); Eosinophils % (auto) 2.7 %; Hematocrit (blood only) 32.3 % (42-52); Hemoglobin 10.6 g/dL (14.0-18.0); Immature Granulocytes # (auto) 0.01 K/uL (0.00-0.02); Immature Granulocytes % (auto) 0.1 %; Lymphocytes # (auto) 1.33 K/uL (1.2-3.4); Lymphocytes % (auto) 18.8 %; Mean Corpuscular Hgb Conc 32.8 g/dL (32-36); Mean Platelet Volume 9.4 fL (7.4-10.4); Monocytes # (auto) 0.69 K/uL (0.11-0.59); Monocytes % (auto) 9.7 %; Neutrophils # (auto) 4.84 K/uL (1.4-6.5); Neutrophils % (auto) 68.4 %; Platelet Count 253 K/uL (130-400); RDW Standard Deviation 58.6 fL (36.4-46.3); White Blood Count 7.08 K/uL (4.8-10.8)
[2018-07-17] MEDS: AMIODARONE 200 MG TAB PO SCH (07:58)
[2018-07-17] MEDS: INSULIN ASPART 100 UNITS/ML 3 ML PEN SC SCH ×2 (07:58→12:06)
[2018-07-17] MEDS: FUROSEMIDE 40 MG in SYRINGE 0 ML IV SCH (07:58)
[2018-07-17] MEDS: CLOPIDOGREL BISULFATE 75 MG TAB PO SCH (07:59)
[2018-07-17] MEDS: NORTRIPTYLINE HCL 25 MG CAP PO SCH (07:59)
[2018-07-17] MEDS: METOPROLOL SUCC 25MG EXT REL TAB PO SCH (07:59)
[2018-07-17] MEDS: POTASSIUM CHLORIDE 10 MEQ TABCR PO SCH (07:59)
[2018-07-17 08:18] LABS: Albumin Level 2.6 gm/dl (3.4-5.0); BUN Creatinine Ratio 19.4 (10-20); Calcium 9.1 mg/dl (8.5-10.1); Creatinine Clr Calc Pharmacy 53.6 ml/min; Est GFR (African American) 57.3; Est GFR (Non-African American) 49.4; Potassium 4.1 mmol/L (3.5-5.1)
[2018-07-17 08:20] LABS: Albumin Globulin Ratio 0.7 (0.9-2); Bilirubin,Total 0.7 mg/dl (0.2-1); Total Protein 6.6 gm/dl (6.4-8.2)
[2018-07-17] MEDS ORDERED: PERFLUTREN LIPID MICROSPHERE (DEFINITY) IV ONE (08:29)
[2018-07-17] MEDS: CAPTOPRIL 12.5 MG TAB PO SCH ×2 (08:47→14:08)
--- NOTE | 2018-07-17 11:25 | Discharge Summary ---
Date of Service July 17, 2018 Admission HPI Per Admitting Provider 77-year-old male presents to the emergency department after being discharged from [facility] yesterday (07July) following the below-described heart surgery. The patient presently is quite fatigued and is not contributing to his history. Per his two daughters at bedside, they were told that the patient was "doing too well" for him to qualify for inpatient rehab per apparent discussions with insurance. Daughter states that he has been very fatigued and generally weak since discharge. For example, he needs assistance just to walk to the bathroom. Apparently he did tolerate some [employer] breakfast this morning along with a V8 and coffee. However, he has not had any further p.o. intake since this morning. On asking the patient directly, he opens his eyes to voice but then closes them again. He nods his head "no" when asked if he is in any pain. He is presently responding to commands but appears quite fatigued. --- Past medical history includes CAD, cardiomyopathy, hypertension, hyperlipid emia, combined systolic and diastolic congestive heart failure, GERD, diabetes, likely diabetic neuropathy, nonsustained V. tach, left bundle branch block. --- Past surgical history includes CABG x 3 vessels + mitral valve surgery (? replacement) + PFO closure + EDDIE clip on [id number] at [place]. --- Social history includes quitting smoking about 12 years ago (with a 50-year prior history), no alcohol use, and normally lives at home alone. However, post surgery, is living with daughter. Principal Diagnosis fatigue Discharge Exam Constitutional WD/WN, vitals as above Eyes PERRL, conjunctivae normal, anicteric sclerae ENMT external ear and nose normal, oropharynx normal Respiratory Decreased breath sounds at the bases Cardiovascular RRR, no murmur, no edema Chest (Breasts) Additional Comments: well healing midline sternal scar Gastrointestinal (Abdomen) normal bowel sounds, soft, nontender, no hepatosplenomegaly Skin no rashes, warm and dry Psychiatric A+Ox3, euthymic affect Lymphatic 1+ left lower extremity edema (vein harvest site). Trace right lower extremity pitting edema Discharge Data Allergies Allergy/AdvReac Type Severity Reaction Status Date / Time aspirin Allergy Mild RASH Verified 07/15/18 19:47 Consultations 07/15/18 18:56 ED Decision to Admit Stat 07/15/18 22:25 Consult Cardiology Routine 07/16/18 09:44 Consult Palliative Care Routine 07/16/18 14:43 Consult Patient Services Routine Hospital Course (1) Fatigue: 77-year-old male with PMH CAD, cardiomyopathy, hypertension, hyperlipidemia, combined systolic and diastolic congestive heart failure, GERD, diabetes presented to [facility] emergency department 07/15 after being discharged from [facility] 07/14 following CABG x3. The patient presented with fatig ue. Per his two daughters, they were told that the patient was "doing too well" for him to qualify for inpatient rehab per apparent discussions with insurance. Daughter stated that he had been very fatigued and generally weak since discharge. For example, he needed assistance just to walk to the bathroom. In ER, CXR suggestive of congestive failure, interstitial edema, and pleural effusions. ER EKG showed normal sinus rhythm, first degree AV block and left BBB. The following was the medical management during stay here: 1) Fatigue/ Chronic Systolic HF -As above, patient had difficulty with any ambulation due to weakness since arrival back home. Pt was deemed "too good" for acute rehab per insurance. This was likely contributed by recent surgery, long hospital stay, and severely reduced LV systolic function. [place] [facility] [place] to [place] 10% (Was 20-25% 06/19). Here, pt was mildly hypervolemic, but w/o SOB, JVD, orthopnea. Noted 2+ LE edema initially. We gave IV Lasix, and pt will cont PO Lasix 40 mg BID on d/c. Also recommended a low-sodium diet. Arrangements are being made for a Heart failure program when pt is able to do so. Pt will be d/c with home health. Will f/u as an outpt w/ cards. 2) CAD -As above, pt was s/p CABG x3 (Sternotomy site appears as though it is healing without obvious sign of infection). He had no angina sxs during stay here. We continued Plavix for anti-platelet therapy (allergic to ASA), beta-lobito, and high-intensity statin. 3) Cardiomyopathy -Per recs from Cardiology, pt was switched to metoprolol succinate from metoprolol tartrate and will cont this on d/c. On day of d/c, pt was also started on captopril 6.25 mg po tid. This can be changed to once daily ACEi, or if able to obtain Entresto BID in the near future. We are choosing short acting med so that it can be quickly stopped if not tolerated. Cards noted that pt's myocardium is mostly viable and therefore hopefully his LV systolic function improves. Pt is not interested in ICD. He wishes to be DNR/DNI. On day of d/c, a limited echo was ordered to evaluate for any improvement, and results were pending. 4) H/O mitral valve replacement: -Pt apparently had elevated gradients on most recent echo [facility]. This will be followed over time. 5) Elevated creatinine -Pt's Cr was 1.64 on admit, BUN 22. On day of d/c, was improved Cr 1.38. Baseline around 1.1. Of note, pt has congenital absence of the right kidney. Pt was voiding without difficulty throughout stay. 6) Anemia -Pt's Hgb on admit was 10.2, normal MCV. On d/c was 10.6. There were no reports of bleeding during stay here and pt did not have any signs or sxs for anemia throughout stay. &) HTN/HLD/Combined systolic and diastolic CHF -As above, we continued home amiodarone, Plavix, Lasix, metoprolol, potassium, Crestor. 9) DM -Pt's HbA1c was 9.6 in May 2018. At home pt is on glipizide, Neurontin, nortriptyline. He was placed on ISS here with good sugar control. We d/c his Neurontin as pt has no neuropathic diabetic pain (this was started at [facility] and may have contributed to his fatigue). DVT prophylaxis was given with Lovenox. At time of d/c, pt had no other acute concerns or complaints. Aware of all plans and appt's after d/c. Total Time Total Time Spent Total Time Spent (In Minutes): 30 min Discharge Plan Discharge Items Patient Disposition: Home - Self-Care Reason For Visit: FATIGUE,RECENT CABG AND MVR Discharge Diagnosis: Fatigue Discharge Goals: Decrease discomfort and Improve function Activity: Per 'Additional Instructions' section Non-emergency contact: Primary Care Provider Call non-emergency contact if: you have any medication questions and your symptoms worsen Follow-up/Referrals: Pro,Pavel Miller MD [Primary Care Provider] - 07/21/18 2:30 pm (Please, follow up at Dr. Portillo's office with his associate, Candice Najera PA-C, on FridayJuly 21 at 2:30 pm. *If you need to change this appointment, call the office at [phone].) Tonie Hernandez PA-C [Physician Cuff Matcher] - 07/24/18 10:30 am (Please, follow up at [facility] Cardiology Office / CHF Clinic w/ Michaelle Hernandez PA-C on FridayJuly 24 at 10:30 am. *This office is located in [address] of [facility] - big building next to this hospital. If you need to change this appointment, call the office at [phone].) Diet: Carb Consistent or DM2 and Heart Healthy Addtl Provider Instructions: You were admitted for fatigue. This could have been possibly due to your recent surgery, long hospital stay, and also your reduced heart ejection function. Please follow the below instructions on discharge: -You will continue your previous medications with one additional new one: Captropril 6.25 mg 3x/day. -If you notice similar symptoms that brought you into the ED persists, then please come back in -You are scheduled to follow up with your PCP and Cardiology as noted by the above dates/times. They will discuss any further treatment or medication changes that need to be made at this time. Prescriptions: New captopril 12.5 mg tablet 6.25 mg PO TID Qty: 30 RF: 3 metoprolol succinate [Toprol XL] 25 mg tablet extended release 24 hr 25 mg PO DAILY Qty: 30 RF: 0 furosemide [Lasix] 40 mg tablet 40 mg PO BID Qty: 30 RF: 2 Continued potassium chloride 10 mEq capsule, extended release 10 meq PO BID RF: 0 amiodarone [Pacerone] 200 mg tablet 200 mg PO DAILY RF: 0 glipizide [Glucotrol XL] 5 mg tablet extended release 24hr 5 mg PO DAILY RF: 0 clopidogrel [Plavix] 75 mg tablet 75 mg PO DAILY RF: 0 glipizide 2.5 mg Tablet Extended Release 24hr 2.5 mg PO DAILY RF: 0 nortriptyline [Pamelor] 75 mg capsule 75 mg PO DAILY RF: 0 gabapentin [Neurontin] 100 mg capsule 100 mg PO TID RF: 0 rosuvastatin [Crestor] 20 mg tablet 20 mg PO HS RF: 0 Discontinued furosemide [Lasix] 40 mg tablet 40 mg PO DAILY RF: 0 metoprolol tartrate 25 mg tablet 12.5 mg PO BID RF: 0 Stand-Alone Forms: [facility] Discharge Orders: Discharge Order (Routine); Ordered 07/17/18 Ordered By: Layo Pete Admission Data Admit Date/Time: 07/15/18 21:23 Attending Provider: Amara De La Paz Admit Provider: Pedrito Collazo Primary Care Provider: Pavel Portillo Other Providers: Pauline Castillo ; Pavel Engle ; Davida Dawkins Service: Telemetry Supervising Physician Co-Signing Physician Notes Resident Physician Supervision Note: I independently interviewed and examined the patient and verified the song history and physical, reviewed labs and image studies, discussed the case with the resident Dr. Pete and agree with the findings and care plan. Time spent in discharge 35 min Resident Activity Tracking Resident Involvement: Resident Care Provided Care Provided: Adult Hospital Medicine
--- NOTE | 2018-07-17 14:05 | Heart Failure Progress Note ---
Date of Service July 17, 2018 Assessment & Plan (1) Chronic systolic (congestive) heart failure: Mr. Stephen was evaluated by Dr. Good this morning. He feels he is stable for discharge. He has recommended Lasix 40 mg BID upon discharge. This was not correct on his discharge template- I called Dr. Júnior Pete this afternoon to clarify the instructions. He is going to make the appropriate changes. Patient was advised to continue daily standing weights once he is at home. He is to write these down and bring them to his follow up appointment next week. He was instructed to call for weight gain of 2-3 lb overnight of 5 lb in 1 week. It was recommended that he continue a low sodium diet, less than 2,000 mg daily. He should continue a fluid restriction. (2) Fatigue: Could be secondary to recent surgery, long hospital stay, and also his severely reduced LV systolic function. Would expect this to be a long recovery as he had prolonged hospital stay [place] [facility] [place]. Cardiac rehab recommended when able to participate. (3) Cardiomyopathy: Continue metoprolol succinate 25 mg daily. Metoprolol tartrate was initially ordered to be continued on the discharge instructions. Dr. Pete made aware of our recommendations and reports he will make the appropriate changes. Recommend moving cautiously. Start captopril 6.25 mg po tid today. This can be changed to once daily BRITT I, or if able to obtain Entresto bid in the near future. Choosing short acting med so that it can be quickly stopped if not tolerated. Viability study reportedly demonstrated that his myocardium is mostly viable and therefore hopefully his LV systolic function improves. He is not interested in ICD. He wished to be DNR/DNI. Limited echo ordered to evaluate for any improvement. Heart Failure discharge medications: - Lasix 40 mg BID - Potassium 10 meq BID - Captopril 6.25 mg TID - Metoprolol succinate 25 mg once daily Disposition: He wishes to be discharged today. The main reason for observation was fatigue and expect him to have slow recovery if he recovers. Poor prognosis. Hopefully LV systolic function improves following revascularization. Close HF program follow up recommended- appoiment scheduled for 07/22/18 at 10:30 am. Subjective Mr. Stephen has been seen today to finalize his discharge planning. He was seen and evaluated by Dr. Good this morning. He is feeling improved today. He is anxious to return home. He voices no other complaints at this time. Results & Data Vital Signs (Past 12 Hours) Vital Signs Temp Pulse Resp BP Pulse Ox 07/17/18 11:27 37.2 C 89 18 101/66 94 07/17/18 07:54 36.6 C 104 H 20 96/64 L 95 07/17/18 03:00 36.9 C 93 H 15 99/62 L 92
--- NOTE | 2018-07-17 17:38 | Palliative Care Progress Note ---
Date of Service July 17, 2018 Assessment & Plan (1) Goals of care, counseling/discussion: Met with patient to complete POLST form prior to discharge-patient requesting to be DNR with limited interventions-patient signed a form himself, original copy given to patient to take home. Spoke with patient's daughter Sheryl, by phone explaining POLST form and is to use Patient is a 77-year-old male with a past medical history of hypertension, HLD, diabetes, GERD, history of tobacco use, CAD, CHF, left bundle branch block and congenital absence of the right kidney, who was recently hospitalized here at [facility] from 06/18 to 06/22-he was transferred to [facility] due to severe CAD for CABG. Patient underwent three-vessel CABG as well as mitral valve replacement and closure of a PFO on 06/26. Patient had an echo on 07/08 which showed an EF of 10%, his prior echo on 06/19 showed an EF of 2530 %. Patient was discharged from [facility] on 07/14-he was to have home PT/OT but was noted on evaluation on 07/15 to have a low blood pressure-80 over 40s. Patient was sent to the emergency room and subsequently admitted. Patient being followed by cardiology-palliative care consulted to address CODE STATUS and goals of care. Patient is alert and oriented x4-however he does not remember some recent events due to syncopal episode when he presented to the ER in June. Patient is alert and oriented-understands his current status-planning to return home today with home therapy-was already set up with the [facility]. Discussed CODE STATUS with both patient and daughter-both in agreement that DNR is appropriate and is consistent with patient wishes. Discussed transitioning home with home health to continue therapies at home as patient's goal would be to try to regain some strength and function at home with consideration for transition to hospice. Patient reports that getting up from bed and going to the bathroom here at the hospital utilizes most of the energy he has for the entire day. Will collaborate with case management regarding home PT/OT, collaborated with Dr. Júnior Pete-would discontinue his Neurontin at this time-patient has no neuropathic diabetic pain-this was started at [place] and may be contributing to his fatigue. Patient continues to have episodes of low blood pressure-we will defer to cardiology for further med adjustments. On admission patient's hemoglobin was 10.2-his hemoglobin was 14 preop, BUN 22, creatinine 1.64 has now improved to 1.5, his prior baseline was 0.91.3. Patient had elevated troponin at 0.071, proBNP was 5470, albumin 2.8. Patient has 6 children-his 2 daughters Sarah and Sheryl are involved with his care. Patient stated he would want Sheryl to be his medical power of managing attorney- will contact patient artist representative to assist with paperwork stating such. -CODE STATUS-changed to DNR as per patient wishes patient's POA in agreement -CAD/CABG-on 06/26-EF 10% on echo done on 07/08, prior EF in June was 25 to 30% - patient is hopeful for some functional recovery status post revascularization -CHF-positive orthopnea, EF 10%, bilateral pleural effusions, edema, shortness of breath with minimal exertion -med changes as per cardiology -Weakness-poor cardiac function contributing as well as critical illness myopathy status post CABG/MVR/PFO repair-patient's goal is to return home and participate in home PT/OT as tolerated -Fatigue-due to poor EF with poor exercise tolerance-would suggest stopping Neurontin for now as this was started at [place], patient has no current neuropathic pain due to his diabetes, and it may be contributing to his fatigue -POLST form given to patient to have at home. (2) CAD (coronary artery disease): (3) S/P CABG x 3: (4) Diabetes mellitus: (5) Acute combined systolic (congestive) and diastolic (congestive) heart failure: (6) Anemia: (7) H/O mitral valve replacement: Subjective Patient seen and examined, no family or friends at bedside. Patient appears more well rested and brighter on exam today Met with patient today to complete POLST form reflecting our discussion with patient and daughter yesterday. Review of Systems Review of Systems: Patient denies fever, chills, increased shortness of breath, chest pain, new GI/ symptoms Physical Exam Physical Exam: PE: No acute distress, brighter than on exam yesterday Respiratory: Diminished breath sounds bilateral bases CV: Regular rate, slight decrease in lower extremity edema Abdomen: Soft, nontender Skin: Surgical site is healing well Neuro: Alert and oriented Extremities: Decreasing edema Results & Data Vital Signs (Past 12 Hours) Vital Signs Temp Pulse Pulse Pulse Resp BP BP 07/17/18 16:42 98.4 F 93 H 88 18 82/50 L 96/60 L 07/17/18 16:00 92 H 07/17/18 15:25 98.4 F 88 18 82/50 L 07/17/18 14:07 93 H 96/60 L 07/17/18 11:27 99.0 F 89 18 101/66 07/17/18 07:54 97.9 F 104 H 20 96/64 L Pulse Ox 07/17/18 16:42 92 07/17/18 16:00 07/17/18 15:25 92 07/17/18 14:07 07/17/18 11:27 94 07/17/18 07:54 95 Time Spent Attending Total time spent 25 minutes with greater than 50% of the time at bedside confirming patient's prior stated wishes to be DNR,POLST form completed-patient signed form, original given to patient to take home.
== END 2018-07-17 17:10 | disposition home health service (06) ==
LOC: 2S 15:53 → ED 15:53 → SUATTDRO 21:23 → 2S 22:15